=== PATIENT | female | born 1940 | race Caucasian/White ===

== ENCOUNTER → 2016-10-19 | Outpatient (CLI) | payer OTHER ==
[~2016-10-19] MED LIST: LISI10TA PO; ONDA4TAB46 PO; PRED-301 PO
== END | disposition home or self-care (01) ==
LOC: C.LABSPEC 17:30
PROVIDERS: ATTEND Family Medicine
DX: K13.79 Other lesions of oral mucosa (principal)

== ENCOUNTER → 2016-10-19 | Outpatient (CLI) | payer OTHER ==
[2016-10-19 15:50] LABS: HEMATOCRIT 40.7 % (37-47); MEAN CELL VOLUME 92.5 fL (80-100); MEAN CORPUSCULAR HEMOGLOBIN 30.5 pg (25-34); MEAN CORPUSCULAR HGB CONC 32.9 g/dl (32-36); PLATELET COUNT 218 K/uL (130-400); WHITE BLOOD COUNT 6.04 K/uL (4.8-10.8)
[2016-10-19 16:08] LABS: FERRITIN 175.1 ng/ml (8.0-388.0)
--- NOTE | 2016-10-23 11:25 | CODING QUERY MEDICAL NECESSITY ---
SUPPORTING DIAGNOSIS NEEDED A supporting diagnosis is required for the test/procedure performed on this patient in order for us to be reimbursed by the patient's insurance. Please provide a supporting diagnosis for the following test/procedure listed below next to the test name along with your signature. *If there is no additional diagnosis for this patient that would support the following test/procedure please document that below next to the test/procedure. Test(s)/Procedure(s) that require a supporting diagnosis: DOS 10/19 * Vitamin B12 DIAGNOSIS: * Iron DIAGNOSIS: Provider Signature: Date: Thank you Martha Collins Health Information Management Once completed, please kindly fax back to [phone] For questions please call [phone]
== END | disposition home or self-care (01) ==
LOC: C.LAB1850 14:35
PROVIDERS: ATTEND Family Medicine
DX: K13.79 Other lesions of oral mucosa (principal)

== ENCOUNTER → 2017-04-06 | Outpatient (CLI) | payer OTHER ==
[~2017-04-06] MED LIST changes: -ONDA4TAB46 PO
--- NOTE | 2017-04-06 11:52 | DIAGNOSTIC IMAGING REPORT ---
LUMBAR SPINE W/O CONTRAST CLINICAL HISTORY: 77 years-old Female presenting with LOW BACK PAIN W/INTRACTIBLE R LEG PAIN, history of surgery, back pain radiating down the right hip and leg. TECHNIQUE: Multisequence, multiplanar MR imaging of the lumbar spine was performed without the use of intravenous contrast. IV contrast: None. COMPARISON: Correlation made to CT of the abdomen and pelvis from 04/21/2016. FINDINGS: Localizer images: Unremarkable. 13 mm of grade 2 anterolisthesis of L5 on S1 with bilateral pars defects of L5 noted. Otherwise anatomic alignment maintained. Vertebral bodies demonstrate normal height and bone marrow signal intensity with the exception of fatty endplate changes at L2-3 (Modic type II). Multilevel degenerative changes detailed below: L1-2: Normal disc bulge without significant neural foraminal or spinal canal stenosis. L2-3: Loss of intervertebral disc height with mild disc bulge. In combination with right greater than left facet hypertrophy, moderate bilateral neural foraminal narrowing results. Suggestion of hemilaminectomy on the left at this level. No significant spinal canal stenosis. L3-4: Mild disc bulge, ligamentum flavum hypertrophy, and facet arthropathy result in moderate right neural foraminal narrowing. No significant spinal canal stenosis. L4-5: Moderate disc bulge, ligamentum flavum hypertrophy, and facet arthropathy result in mild bilateral neural foraminal narrowing. No significant spinal canal stenosis. L5-S1: Anterolisthesis of L5 on S1 with facet arthropathy and ligamentum flavum hypertrophy result in severe right and moderate left neural foraminal narrowing likely with associated mass effect on the exiting L5 nerve roots. Spinal cord ends in good position at the superior endplate of L1. Cauda equina normal in morphology. No gross evidence of epidural collection. No paraspinal edema. Remaining soft tissues remarkable for an extrarenal pelvis on the right. IMPRESSION: 1. Grade 2 anterolisthesis of L5 on S1 secondary to bilateral pars defects of L5. 2. Multilevel degenerative changes with varying degrees of neural foraminal narrowing most severe at L5-S1 with additional levels detailed above. Suspected mass effect on the exiting L5 nerve roots, right greater than left. 3. No significant spinal canal stenosis. 4. Suspected postsurgical changes of hemilaminectomy on the left at L2-3. Electronically signed by: Sin Cruz M.D. 04/06/2017 11:50 AM Dictated Date/Time: 04/06/2017 11:41 AM
== END | disposition home or self-care (01) ==
LOC: C.MRI 10:45
PROVIDERS: ATTEND Neurological Surgery
DX: M54.5 Low back pain (principal); M53.87 Other specified dorsopathies, lumbosacral region

== ENCOUNTER → 2017-07-23 | Outpatient (CLI) | payer OTHER ==
[~2017-07-23] MED LIST changes: +ASPCH81X PO; +FAMO20TA9 PO; +ONDA4TAB46 PO; +PRD/1 PO; +VNTHFA/IN INH
--- NOTE | 2017-07-23 12:51 | MAMMOGRAPHY REPORT ---
BILATERAL DIGITAL SCREENING MAMMOGRAM WITH CAD: 07/23/2017 CLINICAL HISTORY: Routine screening. Patient has no complaints. TECHNIQUE: Current study was also evaluated with a Computer Aided Detection (CAD) system. Bilateral CC and MLO views were obtained. COMPARISON: Comparison is made to exams dated: 03/21/2015 mammogram, 12/26/2013 mammogram, 12/09/2012 ma mmogram, 01/01/2011 mammogram - [facility], 03/12/2009, and 12/22/2005 mammogram - [facility]. BREAST COMPOSITION: There are scattered areas of fibroglandular density in both breasts. FINDINGS: No suspicious masses, calcifications, or areas of architectural distortion are noted in ei ther breast. There has been no significant interval change compared to prior exams. IMPRESSION: ACR BI-RADS CATEGORY 1: NEGATIVE There is no mammographic evidence of malignancy. A 1 year screening mammogram is recommended. The pa tient will receive written notification of the results. Approximately 10% of breast cancers are not detected with mammography. A negative mammographic report should not delay biopsy if a clinically suggestive mass is present. Iris Paredes M.D. /:07/23/2017 12:13:38 Rail Car Operator: Julia CUEVAS(Abner)(M), [facility] letter sent: Normal 1/2 BI-RADS Code: ACR BI-RADS Category 1: Negative
== END | disposition home or self-care (01) ==
LOC: C.MAMM 10:35
PROVIDERS: ATTEND Family Medicine
DX: Z12.31 Encounter for screening mammogram for malignant neoplasm of breast (principal)

== ENCOUNTER 2017-11-19 10:58 | Emergency (ER) | payer OTHER ==
[~2017-11-19] VITALS: Ht 157.5 cm; Wt 62.0 kg
[~2017-11-19 10:58] MED LIST changes: -ASPCH81X PO; -FAMO20TA9 PO; -ONDA4TAB46 PO; -PRD/1 PO; -VNTHFA/IN INH
[2017-11-19 11:04] VITALS: Ht 157.5 cm; Wt 62.0 kg
[2017-11-19] MEDS ORDERED: ONDA4TAB46 PO (11:23)
[2017-11-19] MEDS ORDERED: VNTHFA/IN INH (11:23)
[2017-11-19] MEDS ORDERED: ASPCH81X PO (11:23)
[2017-11-19] MEDS ORDERED: PRD/1 PO (11:23)
[2017-11-19] MEDS ORDERED: SODIUM CHLORIDE 0.9% 500ML 500 ML IV STA (11:27)
[2017-11-19] MEDS ORDERED: ONDANSETRON INJ 2 MG/ML 2 ML VIAL IV STA (11:27)
[2017-11-19] MEDS ORDERED: FAMOTIDINE 20 MG TAB PO ONE (11:30)
[2017-11-19 11:38] VITALS: O2SAT 90
[2017-11-19 12:08] LABS: BASO % 0.2 %; BASO ABS # 0.01 K/uL (0-0.2); EOS % 0.3 %; EOS ABS # 0.02 K/uL (0-0.5); HEMATOCRIT 45.5 % (37-47); HEMOGLOBIN 15.1 g/dL (12.0-16.0); LYMPH % 17.4 %; LYMPH ABS # 1.06 K/uL (1.2-3.4); MEAN CELL VOLUME 90.5 fL (80-100); MEAN CORPUSCULAR HGB CONC 33.2 g/dl (32-36); MEAN PLATELET VOLUME 9.4 fL (7.4-10.4); MONO % 6.2 %; MONO ABS # 0.38 K/uL (0.11-0.59); NEUT % 75.9 %; NEUT ABS # 4.63 K/uL (1.4-6.5); PLATELET COUNT 222 K/uL (130-400); RED CELL DISTRIBUTION WIDTH SD 42.8 fL (36.4-46.3)
--- NOTE | 2017-11-19 12:13 | DIAGNOSTIC IMAGING REPORT ---
CHEST ONE VIEW PORTABLE HISTORY: 77 years-old Female CHEST PAIN acute atypical chest pain COMPARISON: Chest radiograph 03/17/2012, CT abdomen and pelvis 04/21/2016 TECHNIQUE: Portable AP view of the chest FINDINGS: Cardiac silhouette is enlarged. There is no pneumothorax, pleural effusion, focal airspace consolidation or overt pulmonary edema. Linear subsegmental left basilar opacities suggest atelectasis or scarring. Degenerative changes are seen within the shoulders. IMPRESSION: Cardiomegaly without acute process. The above report was generated using voice recognition software. It may contain grammatical, syntax or spelling errors. Electronically signed by: Abdirahman Cardenas M.D. 11/19/2017 12:12 PM Dictated Date/Time: 11/19/2017 12:10 PM
[2017-11-19 12:22] LABS: ALBUMIN 4.2 gm/dl (3.4-5.0); ALT/SGPT 24 U/L (12-78); AST/SGOT 19 U/L (15-37); BLOOD UREA NITROGEN 18 mg/dl (7-18); CALCIUM 8.9 mg/dl (8.5-10.1); CARBON DIOXIDE 31 mmol/L (21-32); CREATININE 0.86 mg/dl (0.60-1.20); GLUCOSE 106 mg/dl (70-99); LIPASE 110 U/L (73-393); SODIUM 138 mmol/L (136-145)
[2017-11-19 12:27] LABS: ALKALINE PHOSPHATASE 70 U/L (45-117); TOTAL PROTEIN 8.3 gm/dl (6.4-8.2)
[2017-11-19] MEDS ORDERED: SODIUM CHLORIDE 0.9% 1000ML 1,000 ML IV STA ×2 (12:49→14:13)
[2017-11-19] MEDS ORDERED: GI COCKTAIL PO STA (13:05)
[2017-11-19] MEDS ORDERED: ACETAMINOPHEN 500 MG TAB PO STA (13:18)
[2017-11-19] MEDS ORDERED: LIDOCAINE HCL 2% VISC SOLN 20 ML UDC ONE (13:19)
[2017-11-19] MEDS ORDERED: ALUMINUM/MAGNESIUM SUSP 30 ML UDC ONE (13:20)
[2017-11-19] MEDS ORDERED: METOCLOPRAMIDE HCL INJ 5 MG/ML 2 ML VIAL IV STA (14:13)
[2017-11-19] MEDS ORDERED: DiphenhydrAMINE HCL 50 MG/ML VIAL IV STA (14:13)
[2017-11-19 14:16] LABS: INFLUENZA A PCR Neg for Influ A (NEG); INFLUENZA B PCR Neg for Influ B (NEG)
[2017-11-19] MEDS ORDERED: LISINOPRIL 20 MG TAB PO STA (14:39)
[2017-11-19] MEDS ORDERED: LISINOPRIL 5 MG TAB ONE (14:45)
[2017-11-19] MEDS ORDERED: FAMO20TA9 PO (18:08)
--- NOTE | 2017-11-19 18:11 | EMERGENCY ROOM VISIT NOTE ---
History Report prepared by Zora: León Pichardo Under the Supervision of: Dr. Reji Lofton M.D. First contact with patient: 11:21 Chief Complaint: CHEST PAIN Stated Complaint: HEAVINESS IN CHEST, LOW BACK PAIN, REFLUX, NAUSEA Nursing Triage Summary: chest pressure started yesterday. b/p has been all over place per pt. sent by [facility]. History of Present Illness The patient is a 77 year old female who presents to the Emergency Room with complaints of constant chest discomfort that began yesterday. The patient describes her discomfort as a "heaviness." She notes that yesterday she was experiencing a lot of chest pain related to her reflux, but felt normal two days ago. Mentioned that she is nauseous today as well, which is worsened by changes in position. The patient's daughter at bedside notes that the patient has been experiencing spikes in her blood pressure, and has felt a little off balance. She has been experiencing hot flashes, but has not had any recorded fevers. She has not history of myocardial infarction. She is currently on Prednisone for Fibro and Polymyalgias. Source of History: patient Onset: Yesterday Position: chest Quality: other (Heaviness) Timing: constant Modifying Factors (Worsening): other (Changes in position worsens nausea) Associated Symptoms: + fevers (Hot flashes, no recorded temperatures), + nausea Review of Systems See HPI for pertinent positives and negatives. A total of ten systems were reviewed and were otherwise negative. Past Medical & Surgical Medical Problems: (1) Spinal stenosis Family History Patient reports no known family medical history. Social History Smoking Status: Never Smoker Marital Status: Housing Status: lives with family Occupation Status: retired Current/Historical Medications Scheduled Aspirin (Aspirin Chewable), 81 MG PO DAILY Lisinopril (Prinivil), 10 MG PO DAILY Prednisone (Prednisone), 1 MG PO DAILY Scheduled PRN Albuterol Hfa (Ventolin Hfa), 2 PUFFS INH Q4H PRN for SOB/Wheezing Famotidine (Pepcid), 20 MG PO BID PRN for GI Upset Ondansetron Hcl (Zofran), 4 MG PO Q6H PRN for Nausea Allergies Coded Allergies: Codeine (Verified Adverse Reaction, Unknown, "Sick", 04/28/16) Physical Exam Vital Signs Date Time Temp Pulse Resp B/P (MAP) Pulse Ox O2 Delivery O2 Flow Rate FiO2 11/19/17 18:41 36.5 71 16 132/77 93 11/19/17 18:40 71 16 132/77 93 11/19/17 17:41 73 17 93 11/19/17 17:31 165/91 11/19/17 17:11 71 19 93 11/19/17 17:01 128/73 11/19/17 16:41 70 18 92 11/19/17 16:36 69 18 94 11/19/17 16:31 139/92 11/19/17 16:06 73 20 94 11/19/17 16:01 73 21 150/110 94 Room Air 11/19/17 15:46 72 14 92 11/19/17 15:31 161/108 11/19/17 15:16 75 11/19/17 15:16 75 25 91 11/19/17 15:11 74 14 93 Room Air 11/19/17 15:10 179/82 11/19/17 15:09 74 16 179/82 95 11/19/17 14:11 66 15 93 Room Air 11/19/17 14:06 66 17 93 Room Air 11/19/17 14:01 192/86 11/19/17 13:36 62 19 95 Room Air 11/19/17 13:31 191/91 11/19/17 13:06 59 18 92 Room Air 11/19/17 13:01 187/98 11/19/17 12:36 59 15 93 Room Air 11/19/17 12:31 187/93 11/19/17 12:06 63 14 97 Room Air 11/19/17 12:01 196/106 11/19/17 11:58 64 16 94 Room Air 11/19/17 11:58 54 11/19/17 11:54 193/91 11/19/17 11:38 90 Room Air 11/19/17 11:28 59 19 98 Room Air 11/19/17 11:22 Room Air 11/19/17 11:19 203/94 11/19/17 11:04 36.5 54 16 190/96 96 Room Air Physical Exam GENERAL: Awake, alert, fatigued and uncomfortable-appearing, in no distress HENT: Normocephalic, atraumatic. Mucous Membranes are dry. EYES: Normal conjunctiva. Sclera non-icteric. NECK: Supple. No nuchal rigidity. FROM. No JVD. RESPIRATORY: Clear to auscultation. CARDIAC: Regular rate, normal rhythm. Extremities warm and well perfused. Pulses equal. ABDOMEN: Soft, non-distended. There is mild epigastric tenderness, no discrete tenderness to palpation. No rebound or guarding. No masses. RECTAL: Deferred. MUSCULOSKELETAL: Chest examination reveals no tenderness. The back is symmetrical on inspection without obvious abnormality. There is no CVA tenderness to palpation. No joint edema. LOWER EXTREMITIES: Calves are equal size bilaterally and non-tender. No edema. No discoloration. NEURO: Normal sensorium. No sensory or motor deficits noted. SKIN: No rash or jaundice noted. Medical Decision & Procedures ER Provider Diagnostic Interpretation: Radiology results as stated below per my review and radiologist interpretation: CHEST ONE VIEW PORTABLE HISTORY: 77 years-old Female CHEST PAIN acute atypical chest pain COMPARISON: Chest radiograph 03/17/2012, CT abdomen and pelvis 04/21/2016 TECHNIQUE: Portable AP view of the chest FINDINGS: Cardiac silhouette is enlarged. There is no pneumothorax, pleural effusion, focal airspace consolidation or overt pulmonary edema. Linear subsegmental left basilar opacities suggest atelectasis or scarring. Degenerative changes are seen within the shoulders. IMPRESSION: Cardiomegaly without acute process. The above report was generated using voice recognition software. It may contain grammatical, syntax or spelling errors. Electronically signed by: Abdirahman Cardenas M.D. 11/19/2017 12:12 PM Dictated Date/Time: 11/19/2017 12:10 PM Laboratory Results 11/19/17 11:50 Red Blood Count 5.03, Mean Corpuscular Volume 90.5, Mean Corpuscular Hemoglobin 30.0, Mean Corpuscular Hemoglobin Concent 33.2, Mean Platelet Volume 9.4, Neutrophils (%) (Auto) 75.9, Lymphocytes (%) (Auto) 17.4, Monocytes (%) (Auto) 6.2, Eosinophils (%) (Auto) 0.3, Basophils (%) (Auto) 0.2, Neutrophils # (Auto) 4.63, Lymphocytes # (Auto) 1.06, Monocytes # (Auto) 0.38, Eosinophils # (Auto) 0.02, Basophils # (Auto) 0.01 11/19/17 11:50 Test 11/19/17 11:50 11/19/17 11:57 11/19/17 14:26 White Blood Count 6.10 K/uL (4.8-10.8) Red Blood Count 5.03 M/uL (4.2-5.4) Hemoglobin 15.1 g/dL (12.0-16.0) Hematocrit 45.5 % (37-47) Mean Corpuscular Volume 90.5 fL (80-100) Mean Corpuscular Hemoglobin 30.0 pg (25-34) Mean Corpuscular Hemoglobin Concent 33.2 g/dl (32-36) Platelet Count 222 K/uL (130-400) Mean Platelet Volume 9.4 fL (7.4-10.4) Neutrophils (%) (Auto) 75.9 % Lymphocytes (%) (Auto) 17.4 % Monocytes (%) (Auto) 6.2 % Eosinophils (%) (Auto) 0.3 % Basophils (%) (Auto) 0.2 % Neutrophils # (Auto) 4.63 K/uL (1.4-6.5) Lymphocytes # (Auto) 1.06 K/uL (1.2-3.4) Monocytes # (Auto) 0.38 K/uL (0.11-0.59) Eosinophils # (Auto) 0.02 K/uL (0-0.5) Basophils # (Auto) 0.01 K/uL (0-0.2) RDW Standard Deviation 42.8 fL (36.4-46.3) RDW Coefficient of Variation 13.0 % (11.5-14.5) Immature Granulocyte % (Auto) 0.0 % Immature Granulocyte # (Auto) 0.00 K/uL (0.00-0.02) Erythrocyte Sedimentation Rate 21 mm/hr (0-21) Urine Color YELLOW Urine Appearance CLEAR (CLEAR) Urine pH 6.5 (4.5-7.5) Urine Specific [place] 1.022 (1.000-1.030) Urine Protein NEG (NEG) Urine Glucose (UA) NEG (NEG) Urine Ketones 2+ (NEG) Urine Occult Blood 2+ (NEG) Urine Nitrite NEG (NEG) Urine Bilirubin NEG (NEG) Urine Urobilinogen NEG (NEG) Urine Leukocyte Esterase TRACE (NEG) Urine WBC (Auto) 1-5 /hpf (0-5) Urine RBC (Auto) 10-30 /hpf (0-4) Urine Hyaline Casts (Auto) 1-5 /lpf (0-5) Urine Epithelial Cells (Auto) >30 /lpf (0-5) Urine Bacteria (Auto) NEG (NEG) Anion Gap 3.0 mmol/L (3-11) Est Creatinine Clear Calc Drug Dose 46.7 ml/min Estimated GFR () 75.0 Estimated GFR (Non- 64.7 BUN/Creatinine Ratio 20.8 (10-20) Calcium Level 8.9 mg/dl (8.5-10.1) Total Bilirubin 0.6 mg/dl (0.2-1) Direct Bilirubin 0.1 mg/dl (0-0.2) Aspartate Amino Transf (AST/SGOT) 19 U/L (15-37) Alanine Aminotransferase (ALT/SGPT) 24 U/L (12-78) Alkaline Phosphatase 70 U/L (45-117) C-Reactive Protein < 0.29 mg/dl (0-0.29) Pro-B-Type Natriuretic Peptide 86 pg/ml (0-1800) Total Protein 8.3 gm/dl (6.4-8.2) Albumin 4.2 gm/dl (3.4-5.0) Lipase 110 U/L (73-393) Influenza Type A (RT-PCR) Neg for Influ A (NEG) Influenza Type B (RT-PCR) Neg for Influ B (NEG) Troponin I < 0.015 ng/ml (0-0.045) Laboratory results reviewed by me Medications Administered Medications (Trade) Dose Ordered Sig/Elvin Route Start Time Stop Time Status Last Admin Dose Admin Sodium Chloride 500 ml @ 999 mls/hr Q31M STAT IV 11/19/17 11:27 11/19/17 11:57 DC 11/19/17 11:57 999 MLS/HR Famotidine (Pepcid Tab) 20 mg NOW ONCE PO 11/19/17 11:30 11/19/17 11:35 DC 11/19/17 11:57 20 MG Ondansetron HCl (Zofran Inj) 4 mg NOW STAT IV 11/19/17 11:27 11/19/17 11:35 DC 11/19/17 11:57 4 MG Sodium Chloride 1,000 ml @ 999 mls/hr Q1H1M STAT IV 11/19/17 12:49 11/19/17 13:49 DC 11/19/17 13:15 999 MLS/HR Acetaminophen (Tylenol Tab) 1,000 mg NOW STAT PO 11/19/17 13:18 11/19/17 13:20 DC 11/19/17 13:23 1,000 MG Lidocaine HCl (Viscous Lidocaine 2% Soln) 20 ml STK-MED ONCE .ROUTE 11/19/17 13:19 11/19/17 13:20 DC 11/19/17 13:23 20 ML Al Hydroxide/Mg Hydroxide (Maalox Susp) 30 ml STK-MED ONCE .ROUTE 11/19/17 13:20 11/19/17 13:21 DC 11/19/17 13:23 30 ML Sodium Chloride 1,000 ml @ 999 mls/hr Q1H1M STAT IV 11/19/17 14:13 11/19/17 15:13 DC 11/19/17 14:50 999 MLS/HR Metoclopramide HCl (Reglan Inj) 10 mg NOW STAT IV 11/19/17 14:13 11/19/17 14:14 DC 11/19/17 14:50 10 MG Diphenhydramine HCl (Benadryl Inj) 25 mg NOW STAT IV 11/19/17 14:13 11/19/17 14:14 DC 11/19/17 14:50 25 MG Lisinopril (Zestril Tab) 10 mg STK-MED ONCE .ROUTE 11/19/17 14:45 11/19/17 14:46 DC 11/19/17 14:48 10 MG ECG Per My Interpretation Rate (beats per minute): 50 Rhythm: sinus bradycardia Findings: other (Normal Meta, No ASHLEY/STD) ED Course 1126: The patient was evaluated in room C10. A complete history and physical exam was performed. Medical Decision I reviewed the patient's past medical history, medications, and the nursing notes as described above. Differential diagnosis: Etiologies such as cardiac ischemia, aortic dissection, pulmonary embolism, pneumonia, pneumothorax, musculoskeletal, infections, pericarditis, myocarditis , esophageal rupture, gastrointestinal, as well as others were entertained. The patient is a 77-year-old woman with a past medical history of hypertension who presents emergency department with generalized weakness over the past week with associated headache and developing of persistent nausea and vomiting since yesterday in setting of having elevated blood pressures over the past week per hpi. On arrival the patient is fatigued and uncomfortable but no acute distress , afebrile, hypertensive 200s/90s vital signs otherwise stable. On exam the patient does appear clinically dry. Labs unremarkable including WBC within normal limits. BUN/CR > 20 suggestive of mild dehydration. Labs otherwise unremarkable including ESR and CRP in the setting of the patient's PMR. As well as initial troponin and delta 2 hour troponin in the setting of greater than 6 hours of symptoms. EKG unremarkable. Thus, cardiac etiology unlikely. She was given IV fluids, Zofran, Pepcid, GI cocktail, Reglan, diphenhydramine with significant improvement in her symptoms. Moreover, the patient was given her home dose of lisinopril which he did not take today. Subsequently the patient's blood pressures improved to the 130s over 90s. A bedside ultrasound of the patient's gallbladder was performed and did show question of a gallstone within the gallbladder neck however, formal ultrasound negative for gallstone and otherwise unremarkable. Of note, the patient reports history of chronic headaches that occur particularly in the morning which her PCP is aware of. I did offer the patient the option for a CAT scan of her brain however she prefers to defer this at this time and follow-up with her doctor given that these headaches are not new. Findings and plan for follow-up reviewed with patient. Patient agreeable and d/c'd per discharge instructions. Impression Primary Impression: Chest pain Additional Impressions: Gastritis Dehydration Scribe Attestation The scribe's documentation has been prepared under my direction and personally reviewed by me in its entirety. I confirm that the note above accurately reflects all work, treatment, procedures, and medical decision making performed by me. Departure Information Dispostion Home / Self-Care Prescriptions Famotidine (PEPCID) 20 Mg Tab 20 MG PO BID Y for GI Upset for 14 Days, #28 TAB Prov: Reji Lofton M.D. 11/19/17 Referrals No Doctor, Assigned (PCP) Patient Instructions ED Chest Pain Atypical Unkn Cause, ED Dehydration, ED Gastritis, ED Headache Migraine, ED Headache Tension, High Blood Pressure, My [facility] Additional Instructions Please follow up with your primary care physician on Wednesday for re-evaluation and to discuss control of your blood pressure. Your symptoms are most likely due to a gastritis with associated dehydration. Otherwise, your exam, EKG, chest xray, lab results, and ultrasound did not show signs of an emergent condition at this time. Acetaminophen for pain and fevers as needed. Zofran as needed for nausea. Pepcid as needed for GI upset/acid reduction. Drink plenty of fluids to ensure hydration. Return to the emergency department for worsening symptoms as described in the accompanying instructions. Problem Qualifiers
--- NOTE | 2017-11-19 18:21 | DIAGNOSTIC IMAGING REPORT ---
ULTRASOUND RIGHT UPPER QUADRANT ABDOMEN CLINICAL HISTORY: Upper abdominal pain. COMPARISON STUDY: Abdominal CT dated 04/21/2016. TECHNIQUE: Real-time, grayscale, and color flow sonography of the right upper quadrant of the abdomen was performed. Images are reviewed in the transverse and longitudinal planes. FINDINGS: Liver: The liver is normal in size and echotexture. There is no intrahepatic biliary ductal dilatation. The main portal vein is patent. Gallbladder: The gallbladder is normal in appearance. No gallstones are identified. There is no gallbladder wall thickening or pericholecystic fluid. A sonographic Kilgore's sign is reportedly absent. The common bile duct measures up to 0.6 cm in diameter. Pancreas: Visualized portions of the pancreatic head and body are normal in appearance. The splenic vein is patent. Right kidney: Survey images of the right kidney demonstrate normal size and echotexture. There is no hydronephrosis. Ascites: None. IMPRESSION: Unremarkable sonographic assessment of the right upper quadrant. No gallstones are identified. Electronically signed by: Nelson Hidalgo M.D. 11/19/2017 6:20 PM Dictated Date/Time: 11/19/2017 6:16 PM
[2017-11-19 18:41] VITALS: BP 132/77; PULSE 71; TEMP 36.5; O2SAT 93
== END 2017-11-19 18:42 | disposition home or self-care (01) ==
LOC: C.EDB 11:01 → C.EDC 18:42
DX: R07.9 Chest pain, unspecified (principal); K29.70 Gastritis, unspecified, without bleeding; E86.0 Dehydration; Z79.82 Long term (current) use of aspirin; Z79.899 Other long term (current) drug therapy; Z79.52 Long term (current) use of systemic steroids

== ENCOUNTER → 2018-03-14 | Outpatient (CLI) | payer OTHER ==
[~2018-03-14] MED LIST changes: +ASPCH81X PO; +ONDA4TAB46 PO; +PRD/1 PO; -PRED-301 PO; +VNTHFA/IN INH
--- NOTE | 2018-03-14 09:38 | DIAGNOSTIC IMAGING REPORT ---
LEFT HIP 2 VIEWS CLINICAL HISTORY: Left hip pain. FINDINGS: AP and frog-leg views of the left hip are correlated with abdominal radiograph dated 03/26/2016. The skeletal structures are osteopenic. No fracture is seen. Minimal arthritic change is identified in the left hip. Tiny enthesophytes arise in the greater trochanter of the left femur. Sclerotic change is noted in the left sacroiliac joint and the symphysis pubis. The overlying soft tissues are within normal limits. IMPRESSION: No acute bony abnormality is identified. Electronically signed by: Nelson Hidalgo M.D. 03/14/2018 9:36 AM Dictated Date/Time: 03/14/2018 9:35 AM
== END | disposition home or self-care (01) ==
LOC: C.RAD 09:11
PROVIDERS: ATTEND Neuromusculoskeletal Medicine & OMM
DX: M25.552 Pain in left hip (principal)

== ENCOUNTER 2023-07-24 10:22 | Inpatient (IN) ==
--- OUTSIDE RECORDS SUMMARY | 2023-07-24 10:29 | External Medical Summary | Summary of Care ---
Author Name Unknown Organization [facility] Address [address] [address] Phone [phone] Care Team Providers Care [employer] Name Role Phone KariCynthiakodak Linton DO Primary Care Provider [phone] Reason for Visit * Reason Comments eRx-Medication Refill Encounter Details Date Type Department Care Team (Late st Contact Info) Description 06/21/2023 Refill Family Practice [facility] [address] [place] [address] Sin Grady MD [address] [place] [address] Allergies Active Allergy Reactions Criticality Noted Date Comments Morphine And Related Nausea/vomiting 07/10/1999 codeine documented as of this encounter (statuses as of 06/21/2023) Medications Medication Sig Dispensed Refills Start Date End Date Status predniSONE 1 MG Oral Tablet (Deltasone)Indicati ons:Polymyalgia rheumatica (HCC) Take 2 tablets by mouth once daily 180 Tablet 3 2 Active Additional Information Patient taking differently: 1 mg Oral Daily(AM), Reported on 12/30/2022 Naproxen Sodium 220 MG Oral Tablet (Aleve) Take 1 Tablet by mouth 2 times a day as needed for Pain. 0 3 Active Levothyroxine Sodium 25 MCG Oral Tablet (Levoxyl)Indication s:Acquired hypothyroidism Take 1 Tablet by mouth in the morning. (at least 30 min prior to breakfast or other meds). 90 Tablet 1 3 Active hydroCHLOROthiazide 25 MG Oral Tablet (Hydrodiuril) Take 1 tablet by mouth once daily 90 Tablet 3 3 Active Losartan Potassium 25 MG Oral Tablet (Cozaar) Take 1 tablet by mouth once daily 90 Tablet 3 3 Active Losartan Potassium 25 MG Oral Tablet (Cozaar) Take 1 tablet by mouth once daily 90 Tablet 1 3 06/21/20 23 Discontinued hydroCHLOROthiazide 25 MG Oral Tablet (Hydrodiuril) Take 1 tablet by mouth once daily 90 Tablet 1 3 06/21/20 23 Discontinued documented as of this encounter (statuses as of 06/21/2023) Active Problems Problem Noted Date Diagnosed Date Onychomycosis 12/19/2021 Trigger finger of left thumb 12/19/2021 Polymyalgia rheumatica 08/04/2020 Herpes zoster without complication 04/26/2020 Abn findings on dx [facility] 02/12/2020 Overview: 02/11 CT-pancreas, sher 2y Well adult exam 02/12/2020 Overview: Need repeat colon? 05/14 lumbar MRI done. 02/11 CT-pancreas, sher 2y, Refer uro for microhematuria/bladder CT abnormal 2013 echo WNL 2015 DEXA [facility] WNL 12/03 Colon [facility] Dr Abdi--Quiescent IBD, UC? 01/03 stress test [facility] WNL Reflux esophagitis Essential hypertension with goal blood pressure less than 140/90 Myalgia and myositis Lumbar spinal stenosis Cyst of kidney, acquired Overview: Right Renal Cyst S/P lumbar fusion documented as of this encounter (statuses as of 06/21/2023) Resolved Problems Problem Noted Date Diagnosed Date Resolved Date Left groin pain 12/19/2021 11/10/2022 Microhematuria 02/12/2020 11/10/2022 Overview: 02/[address] Refer Uro. JOINT PAIN-SHLDER 12/24/1998 01/09/2020 URIN TRACT INFECTION NOS documented as of this encounter (statuses as of 06/21/2023) Immunizations Name Administration Dates Next Due COVID-19 mRNA, LNP-s, No Pre serve, 2-Dose Series ([employer]) 11/27/2021,04/22/2021,10/08/2020,09/17 COVID-19, MRNA-LNP, 23-24, P F, 30 MCG/0.3 mL, 12 YRS AND ABOVE, IM ([employer]) 05/13/2023 Covid-19, Mrna, Lnp-s, Pf, B ivalent, 30 Mcg, IM, 12 yrs and above ([employer]) 12/02/2022,04/07/2022 Pneumococcal Conjugate Vacc, 13 Valent (Prevnar) 03/27/2020,03/27/2015 Pneumococcal Polysaccharide PPV23 (Pneumovax) 04/02/2016 Seasonal Influenza, Quadriva lent Hd (Fluzone Hd) 04/14/2023,03/31/2022,04/07/2021 Seasonal Influenza, Quadriva lent Hd, 65+ Yrs 03/27/2020 Seasonal Influenza, Trivalen t, High Dose, No Preserve, IM 03/27/2020 TDAP (age 10 and older)(Boostrix) 08/02/2020 Zoster Vaccine Recombinant (Shingrix) 12/19/2020 ,08/02/2020 documented as of this encounter Social History Tobacco Use Types Packs/Day Years Used Date Smoking Tobacco: Former Cigarettes 0.5 20 Q uit: 07/26/1988 Passive Smoke Exposure: Past Smokeless Tobacco: Never Alcohol Use Standard Drinks/Week Comments Yes 1 (1 standard drink = 0.6 oz pur e alcohol) 1-3 per week PHQ-2 Answer Date Recorded PHQ Adult Total Score 2 06/07/2023 Hunger Vital Sign Answer Date Recorded Within the past 12 months, y ou worried that your food would run out before you got the money to buy more. Never true 06/07/20 23 Within the past 12 months, t he food you bought just didn't last and you didn't have money to get more. Never true 06/07/2023 Sex and Gender Information Value Date Recorded Sex Assigned at Female 01/14/2022 11:23 AM EDT Gender Identity Female 01/14/2022 11:23 AM EDT Sexual Orientation Straight 01/14/2022 11 :23 AM EDT Job Start Date Occupation Industry Not on file Not on file Not on file documented as of this encounter Miscellaneous Notes * Telephone Encounter - Judith Moreno [facility] - 06/21/2023 6:54 PM EST Signed Prescriptions: Disp Refills hydroCHLOROthiazide 25 MG Oral Tablet (Hyd*90 Tab*3 Sig: Take 1 tablet by mouth once dailyAuthorizing Provider: JULIA RUVALCABA User: JUDITH MORENO Losartan Potassium 25 MG Oral Tablet (Coza*90 Tab*3 Sig: Take 1 tablet by mouth once dailyAutho rizing Provider: JULIA RUVALCABA User: JUDITH MORENO documented in this encounter Plan of Treatment Upcoming Encounters Date Type Department Care Team (Late st Contact Info) Description 06/25/2023 10:00 AM EST Nurse Only Ancillary [facility] [address] [place] [address] College, Nurse Annual Wellness Visit [address] [address] 11/18/2023 11:00 AM EDT Office Visit Family Practice [facility] [address] [place] [address] Julia Ruvalcaba DO [address] [place] [address] 03/16/2024 10:45 AM EDT Office Visit Dermatology [facility] [place] [address] [place] [address] Brandt Stevens MD [address] [place] [address] Health Maintenance Due Date Last Done Comments GFR 12/31/2023 12/30/2022, 11/23, 03/02/2022, Additional history exists TSH 02/26/2024 02/25/2023, 01/2023, 12/02/2022, Additional history exists Depression Screening 06/07/2024 06/07/2023 Albumin/Creatinine Ratio 12/02/2025 12/02/2022, 12/24 DXA Scan 09/18/2027 09/18/2020, 03/14/2015 DTaP,Tdap,and Td Vaccines (2 - Td or Tdap) 08/02/2030 08/02/2020 Pneumococcal Vaccine: 65+ Years Completed 03/27/2020, 04/02/2016, 03/27/2015 Zoster Vaccines Completed 12/19/2020, 08/02/2020 Influenza Vaccine (FLU shot) Completed , 03/31/2022, 04/07/2021, Additional history exists COVID-19 Vaccine Completed 05/13/2023, 04/2023, 04/07/2022, Additional history exists GARDASIL-HPV IMMUNIZATION SERIES Aged Out No longer eligible based on patient's age to complete this topic Hepatitis B Aged Out No longer eligi ble based on patient's age to complete this topic MENINGOCOCCAL (MENACTRA/MENVEO) Aged Out No longer eligible based on patient's age to complete this topic documented as of this encounter Medical Devices Not on filedocumented as of this encounter Care Teams [employer] Relationship Specialty Start Date End Date Julia Ruvalcaba DO [address] [place] [address] PCP - General Family Medicine 12/30/22 documented as of this encounter
--- OUTSIDE RECORDS SUMMARY | 2023-07-24 10:29 | External Medical Summary | Summary of Care ---
Author Name Unknown Organization [facility] Address [address] [place] [address] Phone [phone] Care Team Providers Care Hairspring Vibrator Name Role Phone Julia Pierce DO Primary Care Provider Reason for Visit * Reason Onset Date Comments Adult Annual Wellness Visit, Subsequent Visit Adult Annual Wellness Visit, Subsequent Visit Encounter Details Date Type Department Care Team (Late st Contact Info) Description 06/25/2023 10:00 AM EST Nurse Only Ancillary [address] [id number] College, Nurse Annual Wellness Visit [address] [id number] Adult Annual Wellness Visit, Subsequent Vi... Allergies Active Allergy Reactions Criticality Noted Date Comments Morphine And Related Nausea/vomiting 07/10/1999 codeine documented as of this encounter (statuses as of 06/25/2023) Medications Medication Sig Dispensed Refills Start Date End Date Status predniSONE 1 MG Oral Tablet (Deltasone)Indicati ons:Polymyalgia rheumatica (HCC) Take 2 tablets by mouth once daily 180 Tablet 3 11/27/2021 Active Additional Information Patient taking differently: 1 mg Oral Daily(AM), Reported on 12/30/2022 Levothyroxine Sodium 25 MCG Oral Tablet (Levoxyl)Indication s:Acquired hypothyroidism Take 1 Tablet by mouth in the morning. (at least 30 min prior to breakfast or other meds). 90 Tablet 1 03/05/2023 Active hydroCHLOROthiazide 25 MG Oral Tablet (Hydrodiuril) Take 1 tablet by mouth once daily 90 Tablet 3 06/21/2023 Active Losartan Potassium 25 MG Oral Tablet (Cozaar) Take 1 tablet by mouth once daily 90 Tablet 3 06/21/2023 Active Acetaminophen 500 MG Oral Tablet (Tylenol Extra Strength) Take 2 Tablets by mouth every 8 hours as needed for Pain, Mild. Takes 1-2 tabs as needed, not to exceed 3000 mg/day 0 Active Naproxen Sodium 220 MG Oral Tablet (Aleve) Take 1 Tablet by mouth 2 times a day as needed for Pain. 0 12/30/2022 3 Discontinu ed(Medicat ion List Clean Up) documented as of this encounter (statuses as of 06/25/2023) Active Problems Problem Noted Date Diagnosed Date Onychomycosis 12/19/2021 Trigger finger of left thumb 12/19/2021 Polymyalgia rheumatica 08/04/2020 Herpes zoster without complication 04/26/2020 Abn findings on dx imaging of abd regions, inc r etroperiton 02/12/2020 Overview: 02/11 CT-pancreas, sher 2y Well adult exam 02/12/2020 Overview: Need repeat colon? 05/14 lumbar MRI done. 02/11 CT-pancreas, sher 2y, Refer uro for microhematuria/bladder CT abnormal 2013 echo WNL 2015 DEXA [facility] WNL 12/03 Colon [facility] Dr Abdi--Quiescent IBD, UC? 01/03 stress test [facility] WNL Reflux esophagitis Essential hypertension with goal blood pressure less than 140/90 Myalgia and myositis Lumbar spinal stenosis Cyst of kidney, acquired Overview: Right Renal Cyst S/P lumbar fusion documented as of this encounter (statuses as of 06/25/2023) Resolved Problems Problem Noted Date Diagnosed Date Resolved Date Left groin pain 12/19/2021 11/10/2022 Microhematuria 02/12/2020 11/10/2022 Overview: 02/[address] Refer Uro. JOINT PAIN-SHLDER 12/24/1998 01/09/2020 URIN TRACT INFECTION NOS documented as of this encounter (statuses as of 06/25/2023) Immunizations Name Administration Dates Next Due COVID-19 mRNA, LNP-s, No Pre serve, 2-Dose Series ([employer]) 11/27/2021,04/22/2021,10/08/2020,09/17 COVID-19, MRNA-LNP, 23-24, P F, 30 MCG/0.3 mL, 12 YRS AND ABOVE, IM ([employer]-ComirnatLike.fm) 05/13/2023 Covid-19, Mrna, Lnp-s, Pf, B ivalent, 30 Mcg, IM, 12 yrs and above ([employer]) 12/02/2022,04/07/2022 Pneumococcal Conjugate Vacc, 13 Valent (Prevnar) [...] on file documented as of this encounter Last Filed Vital Signs Vital Sign Reading Time Taken Comments Blood Pressure 130/72 06/25/2023 10:24 AM EST Pulse 64 06/25/2023 10:24 AM EST Temperature 36.4 C (97.6 F) 06/25/2023 10:[address] Respiratory Rate - - Oxygen Saturation 95% 06/25/2023 10:24 AM EST Inhaled Oxygen Concentration - - Weight 63.6 kg (140 lb 4.8 oz) 06/25/2023 10:24 AM EST Height 148.6 cm (4' 10.5") 06/25/2023 10:[address] Body Mass Index 28.82 06/25/2023 10:24 AM EST documented in this encounter Patient Instructions * Patient Instructions* Melinda Estevez RN - 06/25/2023 10:55 AM EST Hi Ms. Clemens, As your primary care physician, I know that regular visits with my patients who have several chronic conditions can go a long way in helping you stay healthy. Many times, the clinic team and I are in touch with you and/or other care team members between office visits to adjust medications, discuss any changes in your health, and review our care plan to make sure it is still meeting your needs. I am dedicated to helping you take a more active role in your overall care. It is important that there are resources available to you, so I created a personalized plan of care with a Health Calendar for you, which is included on the next page of this letter. Below is a list that summarizes your electronic health record: Health Maintenance Due: There are no preventive care reminders to display for this patient. Current Medication List: (as of Visit date not found (in office), Visit date not found (telemedicine) ) Current Outpatient Medications Medication Sig Dispense Refill predniSONE 1 MG Oral Tablet (Deltasone) Take 2 tablets by mouth once daily (Patient taking differently: Take 1 Tablet by mouth in the morning.) 180 Tablet 3 Levothyroxine Sodium 25 MCG Oral Tablet (Levoxyl) Take 1 Tablet by mouth in the morning. (at least 30 min prior to breakfast or other meds). 90 Tablet 1 hydroCHLOROthiazide 25 MG Oral Tablet (Hydrodiuril) Take 1 tablet by mouth once daily 90 Tablet3 Losartan Potassium 25 MG Oral Tablet (Cozaar) Take 1 tablet by mouth once daily 90 Tablet 3 Acetaminophen 500 MG Oral Tablet (Tylenol Extra Strength) Take 2 Tablets by mouth every 8 hoursas needed for Pain, Mild. Takes 1-2 tabs as needed, not to exceed 3000 mg/day No current facility-administered medications for this visit. Current List of Allergies: (as of Visit date not found (in office), Visit date not found (telemedicine) ) Review of patient's allergies indicates: Allergen Reactions Morphine And Related Nausea/vomiting codeine Most Recent Lab Results: Results for orders placed or performed in visit on 03/08/23 SURGICAL PATHOLOGY Result Value Ref Range Final Diagnosis A. Skin, right frontal hairline, shave: Basal cell carcinoma (see comment) Comment: The portion of the tumor available for examination appears to be predominantly of the nodular subtype. Actinic keratosis and tumor of the follicular infundibulum are also present. Clinical History See Order Comments Order Comments A. Right frontal hairline - pink shiny papule with thin overlying crust/scale - r/o BCC Gross Description A. Skin. shave Received formalin with a container labeled with "Nicholas Clemens", "[id number]", "1940" and " rightfrontal hairline". Received is a 0.5 x 0.5 cm skin shave. The skin surface is white, scaly, hair-bearing. The underlying tissue is inked. The specimen is bisected and submitted in cassette A1. Gross By: KB Sign Out Location Pathologist sign out performed at [facility] ([facility] [address] [place] [id number]. Photographic images and diagrams represent garcia findings in this case; they are not intended to replace a complete review of the final diagnostic report. The following statement applies to Flow Cytometry, Histology, In situ Hybridization Assays and Molecular Genetics. This test was developed and performed at [facility] and its performance characteristics determined by [facility]. It has not been cleared or approved by the U.S. Food and Drug Administration. The FDA has determined that such clearance or approval is not necessary. This test is used for clinical purposes. It should not be regarded as investigationalor for research. Special stains, including histochemical stains, and studies using immunologic and IRMA methodology (where applicable) are performed with appropriate positive and negative control reactions. Sincerely, Julia Pierce, DO 06/25/2023 [employer] Calendar (as of Visit date not found (in office), Visit date not found (telemedicine) ) Care needs Care needs Last completed Due next Kidney Function Test 12/30/2022 12/31/2023 Yearly thyroid level check 02/25/2023 02/26/2024 Urine albumin/creatinine test 12/02/2022 12/02/2025 Bone Density 09/18/2020 09/18/2027 Diphtheria, tetanus & pertussis vaccines (2 - Td or Tdap) 08/02/2020 08/02/2030 As you look over the recommended services, be sure to check with your insurance company to determine what's covered. [employer] is a great tool that helps you review your medical record online, including test results, doctor notes and your health summary. You can also schedule appointments with me and other members of your care team, request prescription refills and ask for advice related to your medical conditions at [email or web address]. documented in this encounter Progress Notes * Melinda Estevez RN - 06/25/2023 10:27 AM EST AD8 Dementia Screening Interview Person answering questions: patient Remember, "Yes, a change" indicates that there has been a change in the last several years caused by cognitive (thinking and memory) problems 1. Problems with judgement (eg: problems making decisions, bad financial decisions, problems with thinking). No (0) 2. Less interest in hobbies/activities. No (0) 3. Repeats the same things over and over (questions, stories, or statements). No (0) 4. Trouble learning how to use a tool, appliance, or gadget (eg: VCR, computer, microwave, remote control). No (0) 5. Forgets correct month or year. No (0) 6. Trouble handling complicated financial affairs (eg: balancing checkbook, income taxes, paying bills). No (0) 7. Trouble remembering appointments. No (0) 8. Daily problems with thinking and/or memory. No (0) TOTAL AD8: 0 - AD8 Dementia Screening Score The final score is a sum of the number items marked "Yes, A Change". 0 - 1: Normal cognition; 2 or greater: Cognitive impairments is likely to be present - further testing required Adult Annual Wellness Visit: Nicholas Clemens is a 83 year old female who presents for an Adult Annual Wellness Visit. Depression Screening: Did the patient complete the screening questionnaire for Depression? Yes Is the patient's total score for Depression 15 or greater? No, no further intervention needed, unless requested by patient. Did the patient answer positively to the suicide question? No, no further intervention needed, unless requested by patient. In general, compared to other people your age, what would you say that your health is? Very Good Ht Readings from Last 1 Encounters: 06/25/23 1.486 m (4' 10.5") Wt Readings from Last 1 Encounters: 06/25/23 63.6 kg (140 lb 4.8 oz) Body Mass Index: BMI Less than 30 Body mass index is 28.82 kg/m. BP Readings from Last 1 Encounters: 06/25/23 130/72 Medical/Surgical/Family History Reviewed: Yes Past Medical History: Diagnosis Date Cyst of kidney, acquired Right Renal Cyst Essential hypertension with goal blood pressure less than 140/90 Herpes zoster without complication 04/26/2020 Hypertension Lumbar spinal stenosis Microhematuria 02/12/202002/[address] Refer Uro. Migraine variant Myalgia and myositis Polymyalgia rheumatica (HCC) 08/04/2020 Reflux esophagitis S/P lumbar fusion Past Surgical History: Procedure Laterality Date ANESTH, LUMBAR SPINE/CORD SURGERY 2012 Dr Aj [facility] L2-3 hemilamincotomies. BUNION SURGERY, SIMPLE REMOVAL Bunion Correction,Simple CATARACT SURGERY,COMPLEX Right 09/10/2020 Dr Ulises PAYTON, 1ST STAGE; FACE, HANDS, FEET, NERVE BCC on nose. CA MOHS MICROGRAPHIC H/N/H/F/G 1ST STAGE 5 BLOCKS Left 07/02/2021 MOHS repair left eye- REMOVAL OF APPENDIX age 21 Appendectomy REMOVAL OF OVARY(S) Oopherectomy,Uni SPINAL FUSION, LUMBAR, COMBINED 04/2018 [facility] L5-Sacral fusion. TOTAL HYSTERECTOMY age 44 REE (Total Abdominal Hysterectomy) for fibroids Family History Problem Relation Age of Onset Cancer Mother lymphoma age 58 Diabetes Mother Cancer Father colon cancer age 73 Other (Other) Sister older age. had recurrent aspiration Diabetes Brother Other (89 '22 alive doing well [employer] shayy) Brother lives local ALS Brother Brain Aneurysm Brother much later 89 Diabetes Brother complications. Cancer Brother Other (hypothyroid) Daughter Other (hypothroid) Son Other (hypothyroid) Son Has patient ever had cancer? History of cancer, type: BCC and location: face Social History Tobacco Use Smoking status: Former Packs/day: 0.50 Years: 20.00 Additional pack years: 0.00 Total pack years: 10.00 Types: Cigarettes Quit date: 07/26/1988 Years since quittin.9 Passive exposure: Past Smokeless tobacco: Never Substance Use Topics Alcohol use: Yes Alcohol/week: 1.0 standard drink of alcohol Types: 1 5 oz of wine per week Comment: 1-3 per week Vaping/E-Cigarette Use Vaping/E-Cigarette Use Never User Vaping/E-Cigarette Substances Vaping/E-Cigarette Devices Tobacco/Alcohol screening completed today? Yes Hospital Care: Admissions (within the last year): Not Applicable ER within 30 days: No Does the patient have an Advance Directives/Living Will? Yes Last Physical Exam: Last physical exam: 06/07/2023 Does patient see primary provider regularly? Yes Does patient see other providers? Yes, Specialist Patient Care Team updated? Yes Review of patient's allergies indicates: Allergen Reactions Morphine And Related Nausea/vomiting codeine Immunization History Administered Date(s) Administered COVID-19 mRNA, LNP-s, No Preserve, 2-Dose Series ([employer]) 09/17/2020, 10/08/2020, 04/22/2021, 11/27/2021 COVID-19, MRNA-LNP, 23-24, PF, 30 MCG/0.3 mL, 12 YRS AND ABOVE, IM ([employer]- Comircharles) 05/13/2023 Covid-19, Mrna, Lnp-s, Pf, Bivalent, 30 Mcg, IM, 12 yrs and above (Pfizer) 04/07/2022, 12/02/2022 Pneumococcal Conjugate Vacc, 13 Valent (Prevnar) 03/27/2015, 03/27/2020 Pneumococcal Polysaccharide PPV23 (Pneumovax) 04/02/2016 Seasonal Influenza, Quadrivalent Hd (Fluzone Hd) 04/07/2021, 03/31/2022, 04/14/2023 Seasonal Influenza, Quadrivalent Hd, 65+ Yrs 03/27/2020 Seasonal Influenza, Trivalent, High Dose, No Preserve, IM 03/27/2020 TDAP (age 10 and older)(Boostrix) 08/02/2020 Zoster Vaccine Recombinant (Shingrix) 08/02/2020, 12/19/2020 Current Outpatient Medications Medication Sig Dispense Refill predniSONE 1 MG Oral Tablet (Deltasone) Take 2 tablets by mouth once daily (Patient taking differently: Take 1 Tablet by mouth in the morning.) 180 Tablet 3 Levothyroxine Sodium 25 MCG Oral Tablet (Levoxyl) Take 1 Tablet by mouth in the morning. (at least 30 min prior to breakfast or other meds). 90 Tablet 1 hydroCHLOROthiazide 25 MG Oral Tablet (Hydrodiuril) Take 1 tablet by mouth once daily 90 Tablet 3 Losartan Potassium 25 MG Oral Tablet (Cozaar) Take 1 tablet by mouth once daily 90 Tablet 3 Acetaminophen 500 MG Oral Tablet (Tylenol Extra Strength) Take 2 Tablets by mouth every 8 hours as needed for Pain, Mild. Takes 1-2 tabs as needed, not to exceed 3000 mg/day No current facility-administered medications for this visit. Patient Active Problem List Diagnosis Code Reflux esophagitis K21.00 Essential hypertension with goal blood pressure less than 140/90 I10 Myalgia and myositis [id number] Lumbar spinal stenosis M48.061 Cyst of kidney, acquired N28.1 S/P lumbar fusion Z98.1 Abn findings on dx imaging of abd regions, inc retroperiton R93.5 Well adult exam Z00.00 Herpes zoster without complication B02.9 Polymyalgia rheumatica (HCC) M35.3 Onychomycosis B35.1 Trigger finger of left thumb M65.312 Medication Compliance: Patient is able to obtain all of her medications? Yes Patient takes medications as prescribed? Yes Patient manages own medications: Yes Patient uses a pill box? Yes, refill(s) completed by self Dental Exam: Yes: Every 6 Months Eye Screening: Yes: Every year Are you having trouble with hearing? No Do you use an assistive device to help your hearing? No Exercise Screening: only the exercise associated with activities at work Nutrition Assessment: Eats a balanced diet and Eats three meals a day Pain Screening: Are you having any pain? Yes. Pain Scale: 5 out of 10; Location: lower back and bilateral hands, When: all the time, Duration: back- years, hands-several months Aggravating Factors: certain movements or if sitting for prolonged periods , Relieved by: tylenol Sleep Screening Tool 'STOP': Do you snore? No Do you feel fatigued during the day? Yes-sometimes Do you wake up feeling like you haven't slept? Yes-sometimes Have you been told you stop breathing at night? No Do you gasp for air or choke while sleeping? No Have you been told you have Sleep Apnea? No Do you have high blood pressure or are on medication(s) to control high blood pressure? Yes SCORE: If you check YES to two or more questions, make a referral for Obstructive Sleep Apnea Declines need for sleep study at this time Patient and Caregiver Support System: Patient lives with a spouse and with children Means of Transportation: Drives. Not a concern. Patient lives in Two Story - How many stairs: 13-15 steps Community Resources: Not Applicable Functional Status and ADL Skills: Has patient ever had an amputation? No Functional Assessment: 80- Normal activity with effort: some symptoms of disease Ambulation: Patient ambulates without assistive device. Independent Dressing: Gets clothes and dresses without any assistance: Independent Able to move freely in chair or bed including turning over: Independent Repositioning (bed or chair): Not applicable Transfers: Independent Toileting: Goes to bathroom, uses toilet, arranges clothes and returns without any assistance: Independent Toileting: continent of bladder and continent of bowel-occ leakage of urine Feeding: Self Bathing: Self; walk in shower-has grab bars, seat in shower, textured floor in shower, steps out onto mat/rug Requires none assistance with ADLs. Instrumental ADL's: Shopping: Independent Housekeeping: Independent Handling Finances: Independent DME Vendor Name: Not Applicable Fall Risk Assessment: Can the patient demonstrate that she can stand from a sitting position? Yes Has the patient had a fall within the last 6 months? No Does the patient have a problem with her gait or balance? No Does the patient take 4 or more prescription medicines? Yes Does the patient use sedatives or narcotics? No Fall Risk Factors Present: Uses more than 4 medications Older than age 70 Tax-Nr-pnr-Go Test: Time began at 10:00. Patient stood from sitting position and walked approximately 10 feet, returnedand sat down. Total time for eka-ev-rjq-go test was 7.66 seconds. Fls-Nt-ztq-Go Test completed? Yes Gender Specific Preventative Plan: Health Maintenance Topic Date Due GFR 12/31/2023 TSH 02/26/2024 Depression Screening 06/07/2024 Albumin/Creatinine Ratio 12/02/2025 DXA Scan 09/18/2027 DTaP,Tdap,and Td Vaccines (2 - Td or Tdap) 08/02/2030 Influenza Vaccine (FLU shot) Completed Zoster Vaccines Completed Pneumococcal Vaccine: 65+ Years Completed COVID-19 Vaccine Completed Hepatitis B Aged Out MENINGOCOCCAL (MENACTRA/MENVEO) Aged Out GARDASIL-HPV IMMUNIZATION SERIES Aged Out Follow Up/ Referrals/Handouts: No further action needed Routine general medical examination at a health care facility (Primary) Cyst of kidney, acquired Continue to monitor Essential hypertension with goal blood pressure less than 140/90 BP Readings from Last 3 Encounters: 06/25/23 130/72 06/07/23 138/80 03/02/23 128/76 Continue to monitor and with current medication Spinal stenosis of lumbar region, unspecified whether neurogenic claudication present S/P lumbar fusion Continue to monitor and with current medication. Follow up as needed. See below- message sent to Dr Pierce Polymyalgia rheumatica (HCC) Continue to monitor and with current medication as needed. Gastroesophageal reflux disease with esophagitis, unspecified whether hemorrhage Continue to monitor diet Pt is up to date with her immunizations Pt has several concerns Having bilateral hand pain and weakness-hard time opening jars, using her mixer, etc. States right arm has a tremor-hard time carrying a cup of coffee. Feels like losing strength in her right arm. Right lower back pain-h/o surgery in past. States pain radiates all over, not specifically down right leg. Using tylenol 500 mg 1-2 tabs prn but not really helping. Asking if there is anything else she can be doing for this. States she thinks she has talked about this with Dr Pierce but feels its getting worse. Message forward to Dr Pierce for recommendations-see other encounter Discussed bringing in a copy of her living will to have scanned into her chart. Encouraged to follow up with her eye provider. . Pt scored 7 on her depression screening-mild depression-continue to monitor Follow Up: Return in 1 year (on 06/25/2024) for 12 month Subsequent Adult Wellness Visit. | For: 12 month Subsequent Adult Wellness Visit | Check-out note: 12 month Subsequent Adult Wellness Visit Would patient like to schedule next AWV visit? Yes Melinda Estevez RN documented in this encounter Miscellaneous Notes * Pt Handout (on AVS) - Melinda Estevez RN - 06/25/2023 10:54 AM EST Images from the original note were not included. [id number] Preventing Falls: Making Changes in Your Living Space Is your living space filled with hazards that could cause you to fall? Changes can make you safer. They could even save your life. Take a careful look around your home. Change what you can on your own. Hire someone or ask friends or family to help with harder tasks. Be sure to add a nonslip mat to the inside of your shower or bathtub. Always keep a nightlight on. Keep a clear path from your bed to the bathroom. Move items from higher shelves to lower ones. Remove hazards Remove things that can trip you, like throw rugs, boxes, piles of paper, or cords. Nail down rugs or carpeting if you don't want to remove them. Use slip- resistant backing. Don't store items on stairs. Keep walkways clear. Clean up spills right away. Replace glass tables with wooden ones. They're safer if you fall. Add safety devices Add handrails to both sides of stairs. Buy a raised toilet seat. Add grab bars near the toilet and in the shower. Get grabbers to help you reach things and avoid climbing. Improve lighting Add nightlights to halls, bedrooms, and bathrooms. Put light switches at the top and bottom of stairs. Be sure each room and flight of stairs has proper lighting. Use shades or curtains to cut glare from windows. Put flashlights in each room. Replace burned-out bulbs. Get glowing light switches for room entrances. Take other precautions Use nonskid floor wax. Buy a nonslip mat and a liquid soap dispenser for the shower. Put most-used items within easy reach. Add bright paint or tape on the top front edge of steps. Save big jobs, such as moving furniture or other heavy objects, for family or friends. Get professional help installing grab bars. They can be unsafe if not installed the right way. Fix riskier rooms first Don't tackle everything at once. Focus on one room at a time. The bathroom is a common spot for falls, so you may want to start there. Or start with a room you spend lots of time in, such as your bedroom. Make only a few changes at once. This will give you time to adjust to them. Outside safety You might arrange for these changes yourself, or you might need to talk to your decorator street and building orhomeowners' association about them. Have loose boards on porches or damaged stairs repaired. Have rough edges, holes, or large cracks in sidewalks or driveways repaired. Remove hazards that could trip you, such as hoses or rios. Use high-wattage light bulbs ([address] or greater) near outside doors and stairs. Add handrails to outside stairs. Have them extend beyond the bottom step. Get help in winter weather with ice or snow removal. Last Reviewed Date: 06/25/202219995099-0774 [employer]. All rights reserved. This information is not intended as a substitute for professional medical care. Always follow your healthcare professional's instructions. * Pt Handout (on AVS) - Melinda Estevez RN - 06/25/2023 10:54 AM EST [id number] Fall Prevention Falls often take place due to slipping, tripping, or losing your balance. Millions of people fall every year and injure themselves. Among older adults in the [place] falls are the most common cause of traumatic brain injuries. Every 20 minutes, an older adult dies from a fall. Here are ways to reduceyour risk of falling again: Think about your fall. Was there anything that caused your fall that can be fixed, removed, or replaced? Make your home safe by keeping walkways clear of objects you may trip over, such as electrical cords. Use nonslip pads under rugs. Don't use area rugs or small throw rugs. Use nonslip mats in bathtubs and showers. Hang grab rails by the toilet and inside and outside the shower. Install handrails and lights on staircases. The handrails should be on both sides of the stairs. Use night lights. Don't walk in poorly lit areas. Don't stand on chairs or wobbly ladders. Use care when reaching overhead or looking up. This position can cause a loss of balance. Be sure your shoes fit well, are in good condition, and have nonslip bottoms. Wear shoes both inside and outside of your home. Don't go barefoot or wear slippers. Be cautious when going up and down stairs, curbs, and when walking on uneven sidewalks. If your balance is poor, consider using a cane or walker. Talk with your healthcare provider about having a balance assessment. If your fall was related to alcohol use, stop or limit alcohol intake. Ask your provider for help if you think you may overuse alcohol and can't stop. If your fall was related to use of sleeping medicines, talk with your provider about this. You may need to reduce your dosage at bedtime if you wake up during the night to go to the bathroom. To reduce the need for nighttime bathroom trips: o Don't drink fluids for several hours before going to bed o Empty your bladder before going to bed o Men can keep a urinal at the bedside Stay as active as you can. Balance, flexibility, strength, and endurance all come from exercise.They all play a role in preventing falls. Ask your provider which types of activity are right for you. Try to do some type of exercise every day. Get your eyes checked once a year or more often if your vision changes If you have pets, know where they are before you stand up or walk so you don't trip over them. Go over all your medicines with a pharmacist or other provider. This is to see if any of them could make you more likely to fall. Have this type of medicine review at least once every year. If your provider advises a new medicine, ask if the side effects will affect your balance. Don't move quickly from one position to another. For instance, don't stand up fast from sitting.This can cause dizziness and may lead to a fall. Sit down when putting on pants, socks, and shoes. This will make you less likely to lose your balance and fall. Always let your provider know if you have fallen since your last visit. Contact your provider right away if you're having balance problems or falling more often. Last Reviewed Date: 07/26/202119999652-5278 [employer]. All rights reserved. This information is not intended as a substitute for professional medical care. Always follow your healthcare professional's instructions. documented in this encounter Plan of Treatment Upcoming Encounters Date Type Department Care Team (Late st Contact Info) Description 11/18/2023 11:00 AM EDT Office Visit Family Practice [address] [place] [address] [address] [place] [address] Julia Pierce DO [address] [place] [address] 03/16/2024 10:45 AM EDT Office Visit Dermatology [facility] [address] [place] [address] Brandt Stevens MD [address] [place] [address] Health Maintenance Due Date Last Done Comments GFR 12/31/2023 12/30/2022, 11/23, 03/02/2022, Additional history exists TSH 02/26/2024 02/25/2023, 01/2023, 12/02/2022, Additional history exists Depression Screening 06/07/2024 06/25/2023 Albumin/Creatinine Ratio 12/02/2025 12/02/2022, 12/24 DXA Scan [...] Not on filedocumented as of this encounter Visit Diagnoses Diagnosis Routine general medical examination at a health care facility- Primary Cyst of kidney, acquired Acquired cyst of kidney Essential hypertension with goal blood pressure less than 140/90 Spinal stenosis of lumbar region, unspecified whether neurogenic claudication present Polymyalgia rheumatica (HCC) Polymyalgia rheumatica Gastroesophageal reflux disease with esophagitis, unspecified whether hemorrhage S/P lumbar fusion Arthrodesis status documented in this encounter Care Teams Hairspring Vibrator Relationship Specialty Start Date End Date Julia Pierce DO [address] [place] [address] PCP - General Family Medicine 12/30/22 documented as of this encounter
--- OUTSIDE RECORDS SUMMARY | 2023-07-24 10:29 | External Medical Summary | Summary of Care ---
Author Name Unknown Organization [facility] Address [address] [place] [address] Phone [phone] Care Team Providers Care Television Script Writer Name Role Phone Julia Pierce DO Primary Care Provider [phone] Reason for Visit * Reason Onset Date Comments Advice 06/25/2023 Encounter Details Date Type Department Care Team (Late st Contact Info) Description 06/25/2023 Telephone Family Practice [address] [facility] [place] [address] [place] [address] Julia Pierce DO [address] [place] [address] Advice Allergies Active Allergy Reactions Criticality Noted Date Comments Morphine And Related Nausea/vomiting 07/10/1999 codeine documented as of this encounter (statuses as of 06/25/2023) Medications Medication Sig Dispensed Refills Start Date End Date Status predniSONE 1 MG Oral Tablet (Deltasone)Indicatio ns:Polymyalgia rheumatica (HCC) Take 2 tablets by mouth once daily 180 Tablet 3 11/27/2021 Active Additional Information Patient taking differently: 1 mg Oral Daily(AM), Reported on 12/30/2022 Levothyroxine Sodium 25 MCG Oral Tablet (Levoxyl)Indications :Acquired hypothyroidism Take 1 Tablet by mouth in [...] not to exceed 3000 mg/day 0 Active documented as of this encounter (statuses as [...] CT abnormal 2013 echo WNL 2015 DEXA [facility] WNL 12/03 Colon [facility] Dr Abdi--Quiescent IBD, UC? 01/03 stress test [...] mRNA, LNP-s, No Pre serve, 2-Dose Series ([employer]) 11/27/2021,04/22/2021,10/08/2020,09/17 COVID-19, MRNA-LNP, 23-24, P F, 30 MCG/0.3 mL, 12 YRS AND ABOVE, IM (PFIZER-Comirnaty) 05/13/2023 Covid-19, Mrna, Lnp-s, Pf, B ivalent, 30 Mcg, IM, 12 yrs and above (Pfizer) 12/02/2022,04/07/2022 Pneumococcal Conjugate Vacc, 13 Valent (Prevnar) [...] encounter Miscellaneous Notes * Telephone Encounter - Melinda Gonzales CLEAN IN PLACES OPERATOR - 06/25/2023 4:39 PM EST Will call in after returning from [facility] regarding her hands. Pain does not radiate down legs. She said she will call in October and let us know if worsening. Thank you * Telephone Encounter - Julia Pierce DO - 06/25/2023 2:02 PM EST For her hand arthritis, there is not much left to offer given limitations of medications/other health issues. Can see ortho to see if they have any recommendations. I am not sure what she means by pain in her back "radiating all over". If she is getting pain down the legs, we can consider doing further work-up with MRI, etc. Would need appt. Can consider PT. Other medications pending work-up. * Telephone Encounter - Melinda Estevez RN - 06/25/2023 11:01 AM EST Pt in for her AWV today Having bilateral hand pain and weakness-hard time [...] worse. Message forward to Dr Pierce for recommendations. documented in this encounter Plan of Treatment Upcoming Encounters Date Type Department Care Team (Late st Contact Info) Description 11/18/2023 11:00 AM EDT Office Visit Family Practice 65 [facility], [address] [place] [address] Julia Pierce DO 293 [facility] [address] 03/16/2024 10:45 AM EDT Office Visit Dermatology [facility] 200 [facility] [place], [place] [address] Brandt Stevens MD 200 [facility] [place], [place] [address] 07/04/2024 1:00 PM EST Nurse Only Ancillary 65 [facility] 293 [place] [address] College, Nurse Annual Wellness Visit [address] [facility] [address] [place] [address] Health Maintenance Due Date Last Done Comments [...] filedocumented as of this encounter Care Teams Television Script Writer Relationship Specialty Start Date End Date Julia Pierce DO [address] [place] [address] PCP - General Family Medicine 12/30/22 documented as of this encounter
--- OUTSIDE RECORDS SUMMARY | 2023-07-24 10:29 | External Medical Summary | Summary of Care ---
Author Name Unknown Organization [facility] Address [address] [place] [address] Phone [phone] Care Team Providers Care Garden Implement Mechanic Name Role Phone TutuJulia segura Shaila SANCHEZ Primary Care Provider + [phone] Reason for Visit * Reason Comments Mohs Surgery * Evaluate & Treat - Unlimited Visits (Within 30 days (routine)) - Closed Specialty Diagnoses / Procedures Referred By Irma resendiz Referred To Contact Dermatology Diagnoses Basal cell carcinoma (BCC) of forehead Brandt Stevens MD [address] [place] [id number] Referral ID Status Reason Start Date Expiration Date V isits Requested Visits Authorized [id number] Closed Specialty Services Required 03/10/2023 1 1 Encounter Details Date Type Department Care Team Description 03/30/2023 Office Visit MOHS Surgery [facility] [address] [place] [address] Shaila Baez MD [address] [place] [address] Basal cell carcinoma (BCC) of right forehead* Allergies Active Allergy Reactions Severity Noted Date Comments Morphine And Related Nausea/vomiting 07/10/1999 codeine documented as of this encounter (statuses as of 04/02/2023) Medications Medication Sig Dispensed Refills Start Date End Date Status predniSONE 1 MG Oral Tablet (Deltasone)Indicatio ns:Polymyalgia rheumatica (HCC) Take 2 tablets by mouth once daily 180 Tablet 3 11/27/2021 Active Additional Information Patient taking differently: 1 mg Oral Daily(AM), Reported on 12/30/2022 Losartan Potassium 25 MG Oral Tablet (Cozaar) Take 1 tablet by mouth once daily 90 Tablet 1 11/12/2022 Active hydroCHLOROthiazide 25 MG Oral Tablet (Hydrodiuril) Take 1 tablet by mouth once daily 90 Tablet 1 11/12/2022 Active Naproxen Sodium 220 MG Oral Tablet (Aleve) Take 1 Tablet by mouth 2 times a day as needed for Pain. 0 12/30/2022 Active Levothyroxine Sodium 25 MCG Oral Tablet (Levoxyl)Indications :Acquired hypothyroidism Take 1 Tablet by mouth in the morning. (at least 30 min prior to breakfast or other meds). 90 Tablet 1 03/05/2023 Active documented as of this encounter (statuses as of 04/02/2023) Active Problems Problem Noted Date Onychomycosis 12/19/2021 Trigger finger of left thumb 12/19/2021 Polymyalgia rheumatica 08/04/2020 Herpes zoster without complication 04/26 Abn findings on dx imaging of abd region s, inc retroperiton 02/12/2020 Overview: 02/11 CT-pancreas, sher 2y Well adult exam 02/12/2020 Overview: Need repeat colon? 05/14 lumbar MRI done. 02/11 CT-pancreas, sher 2y, Refer uro for microhematuria/bladder CT abnormal 2013 echo WNL 2015 DEXA [facility] WNL 12/03 Colon [facility] Dr Abdi--Quiescent IBD, UC? 01/03 stress test [facility] WNL Reflux esophagitis Essential hypertension with goal blood p ressure less than 140/90 Myalgia and myositis Lumbar spinal stenosis Cyst of kidney, acquired Overview: Right Renal Cyst S/P lumbar fusion documented as of this encounter (statuses as of 04/02/2023) Resolved Problems Problem Noted Date Resolved Date Left groin pain 12/19/2021 11/10/2022 Microhematuria 02/12/2020 11/10/2022 Overview: 02/[address] Refer Uro. JOINT PAIN-SHLDER 12/24/1998 01/09/2020 URIN TRACT INFECTION NOS 020 documented as of this encounter (statuses as of 04/02/2023) Immunizations Name Administration Dates Next Due COVID-19 mRNA, LNP-s, No Pre serve, 2-Dose Series (Pfizer) 11/27/2021,04/22/2021,10/08/2020,09/17 Covid-19, Mrna, Lnp-s, Pf, B ivalent, 30 Mcg, IM, 12 yrs and above (Pfizer) 12/02/2022,04/07/2022 Pneumococcal Conjugate Vacc, 13 Valent (Prevnar) 03/27/2020,03/27/2015 Pneumococcal Polysaccharide PPV23 (Pneumovax) 04/02/2016 Seasonal Influenza, Quadriva lent Hd (Fluzone Hd) 03/31/2022,04/07/2021 Seasonal Influenza, Quadriva lent Hd, 65+ Yrs [...] oz pur e alcohol) 1-3 per week Food Insecurity Answer Date Recorded Within the past 12 months, y ou worried that your food would run out before you got money to buy more. Never true 03/02/2023 Within the past 12 months, t he food you bought just didn't last and you didn't have money to get more. Never true 03/02/2023 Sex Assigned at Date Recorded Female 01/14/2022 11:23 AM EDT Job Start Date Occupation Industry Not on file Not on file Not on file documented as of this encounter Progress Notes * Shaila Baez MD - 03/30/2023 8:25 AM EDT History: Nicholas Clemens is a 83 year old year old patient seen at the request for consultation by Dr. Stevens for evaluation and management of BCC, right frontal hairline. No outpatient medications have been marked as taking for the 03/30/23 encounter (Appointment) with Shaila Baez MD. Review of patient's allergies indicates: Allergen Reactions Morphine And Related Nausea/vomiting codeine ROS: The patient feels generally well and has no other skin complaints. Exam: Patient is alert, oriented and in no distress. Exam is of the skin and mucosa of face. The patient is alert and oriented and appears generally well. The patient's skin is remarkable for an atrophic healing biopsy site measuring 0.7 cm. (site confirmed with photo taken at time of biopsy). Impression: 1. BCC, right frontal hairline Plan: 1. Plan for Mohs surgery today. Risks, benefits and alternatives discussed with patient. Risks suchas (but not limited to) scar, infection, bleeding, hematoma, and recurrence disussed. Questions answered. Informed consent form discussed and signed. Photograph obtained of lesion for medical record. Patient identified, procedure verified, site identified and verified. Time out completed. Surgical removal of the lesion discussed with the patient (risks and benefits, including possibility of scarring, infection, recurrence or potential for further treatment). I have specifically identified the site with the patient. I have discussed the fact that the patient will have a scar after the procedure regardless of granulation or repair with sutures. I have discussed that the repair options can range from granulation in some cases to linear or curvilinear closures to larger flaps or grafts. There are sometimes flaps or grafts used that require multiple stages of surgery and will not be completed today , rather be completed over a series of appointments. I have discussed that occasionally due to location , size or depth of the lesion I may recommend consultation with and transfer of care for further removal or the the reconstruction to another provider such as ophthalmology surgery , plastic surgery, ENT surgery or surgical oncology. There are cases in which other testing such as imaging with MRI or CT scan or testing of lymph nodes is recommended because of the nature/ depth/ location of tumor seen during the removal. There is a risk of injury tonerves causing temporary or permanent numbness or the inability to move muscles fully such as the inability to lift eyebrows. Questions answered and verbal and written consent was obtained. Mohs resection today. Tumor cleared in 1 stage . Repaired with purse string and granulation. See operative report for complete details. Marcos Baez MD Associate, Department of Dermatology documented in this encounter Procedure Notes * Shaila Baez MD - 03/30/2023 12:00 PM EDT CLINIC NOTES [facility] [place] [address] MOHS MICROGRAPHIC SURGERY Nicholas Clemens [facility]# [id number] 03/30/2023 MOHS NUMBER: [id number] BIOPSY: [id number] OPERATION: SURGICAL EXCISION OF CUTANEOUS MALIGNANCY USING CONTINUOUS MICROSCOPIC CONTROL(MOHS MICROGRAPHIC SURGERY) DIAGNOSIS: nodular basal cell carcinoma LOCATION: right frontal hairline INDICATION FOR MOHS SURGERY: Location SURGEON: Marcos Baez M.D. SAW GRINDER SURGEON: NONE SAW GRINDER SURGEON: NONE ANESTHETIC: Buffered lidocaine 0.5% with epinephrine 1:200,000 DRAG OUT MAN: Marcos Baez M.D. PREOPERATIVE SIZE OF LESION: 0.7 x 0.6 cm POSTOPERATIVE SIZE OF DEFECT: 0.9 x 0.9 cm ESTIMATED BLOOD LOSS: 5CC PROCEDURE: Time out called. Patient identified. Procedure matches verbalized consent. Site identified and verified and confirmed immediately prior to the procedure. Site marked. Thin layers of tumor-containing tissue were excised at each stage of surgery. These were cut into smaller tissue sections which were examined microscopically in a systematic fashion. Examination of the entire base and superficial peripheral margin allowed microscopic tumor extensions to be located and mapped. In accordance with the Mohs technique, this procedure enabled the maximum amount of normal tissue to be preserved while achieving the highest cure rate for cutaneous malignancy. At each surgical stage, the patient was prepped, the proposed excision outlined on the skin, and the area was reanesthetized as needed. STAGE I: The patient was prepped and the area of surgery was outlined. The operative site was anesthetized with a local injection of buffered lidocaine 0.5% with epinephrine 1:200,000. Following this the clinically apparent portion of the tumor was surgically removed. Hemostasis was achieved with an electrosurgical device. A thin layer of tissue was surgically excised and hemostasis was obtained. A reference map was drawn and the excised tissue was cut into 2 sections for examination in the micrographic laboratory. Edges of each section were dyed in order to achieve precise orientation. Horizontal sectioning of the base and continuous peripheral margins were then carried out and the prepared microscopic sections were examined by Marcos Baez M.D.. Any areas of residual nodular basal cell carcinoma were indicated on the reference map, pinpointing the location in which further tissue excision was necessary. At this point, no further tumor cells were identified and the tumor eradication was considered to be complete for a total of 1 stage of surgery in which multiple microscopic slices of 2 tissue sections had been examined. WOUND MANAGEMENT: This wound was repaired with a combination of purse-string suture and directional guiding sutures. After sterilely preparing, anesthetizing and draping the surgical site, the wound was closed partially with a deep dermal-subcutaneous suture. Additional sutures were then placed to narrow the defect and encourage healing in a favorable direction. This technique was chosen to decrease size of the surgical defect, provide a more desirable cosmetic result and decrease time to epithelialization. Total volume of Buffered lidocaine 0.5% with epinephrine 1:200,000, for Mohs Surgery and reconstruction was 9 ml. The final closure was 0.9 cm. in length. Subcutaneous closure material: Purse string 5-0 Vicryl Cutaneous closure material: None Marcos Baez M.D. Associate Department of Dermatology documented in this encounter Nursing Notes * Gwen Diop LPN - 03/30/2023 8:31 AM EDT Chief Complaint Patient presents with Mohs Surgery Referral Doctor: Rodney Hypertension History: Yes, refer to medication information for treatment. Diabetes History: No Thyroid History: Yes, refer to medication information for treatment. Bleeding Tendency: No Artificial Valve or Joint: No Pacemaker: no Defibrillator: no Hepatitis/HIV Exposure: No Smoking: no Consent signed yes documented in this encounter Miscellaneous Notes * Addendum Note - Rod Martin LPN - 04/02/2023 12:05 PM EDTAddended by: ROD MARTIN on: 04/02/2023 12:05 PM Modules accepted: Orders * Letters - Shaial Baez MD - 03/30/2023 12:00 PM EDT Department of Dermatology [phone] [place] [address] Marcos Baez M.D. Associate Dermatologic Surgery March 30, 2023 Brandt Stevens MD 200 [facility] [place], [place] [address] Nicholas Clemens [id number] MOHS CASE: [id number] DX: nodular basal cell carcinoma Dear Referring Provider, Thank you for referring Nicholas Clemens for treatment of nodular basal cell carcinoma of the right frontal hairline. This tumor required 1 stage for complete removal. The surgical wound was repaired with combination of purse-string and directional guiding sutures. Thanks again for referring your patient to our office. Yours truly, Marcos Baez M.D. documented in this encounter Plan of Treatment Upcoming Encounters Date Type Specialty Care Team Description 04/14/2023 Office Visit Dermatology Shaila Baez MD 200 [place] [address] 06/02/2023 Office Visit Family Medicine Julia Pierce DO 293 [facility] [place] [address] 06/25/2023 Nurse Only [facility], Nurse Annual Wellness Visit [address] [facility] [place] [facility] [address] [place] [address] 03/16/2024 Office Visit Dermatology Brandt Stevens MD [address] [place] [address] Health Maintenance Due Date Last Done Comments Influenza Vaccine (FLU shot) (#1) 2023 03/31/2022, 04/07/2021, 03/27/2020, Additional history exists GFR 12/31/2023 12/30/2022, 11/23, 03/02/2022, Additional history exists TSH 02/26/2024 02/25/2023, 01/2023, 12/02/2022, Additional history exists Depression Screening 03/02/2024 03/02/2023 Albumin/Creatinine Ratio 12/02/2025 12/02/2022, 12/24 DXA Scan 09/18/2027 09/18/2020, 03/14/2015 DTaP,Tdap,and Td Vaccines (2 - Td or Tdap) 08/02/2030 08/02/2020 Pneumococcal Vaccine: 65+ Years Completed 03/27/2020, 04/02/2016, 03/27/2015 Zoster Vaccines Completed 12/19/2020, 08/02/2020 COVID-19 Vaccine Completed 12/02/2022, , 11/27/2021, Additional history exists GARDASIL-HPV IMMUNIZATION SERIES Aged [...] as of this encounter Visit Diagnoses Diagnosis Basal cell carcinoma (BCC) of right forehead- Primary documented in this encounter Care Teams Garden Implement Mechanic Relationship Specialty Start Date End Date Julia Pierce, DO [address] [facility] [place] [place] [address] PCP - General Family Medicine 12/30/22 documented as of this encounter
--- OUTSIDE RECORDS SUMMARY | 2023-07-24 10:29 | External Medical Summary | Summary of Care ---
Author Name Unknown Organization [facility] Address [address] [place] [address] Phone [phone] Care Team Providers Care Telephone Services Sales Representative Name Role Phone Julia Ruvalcaba DO Primary Care Provider Reason for Visit * Reason Onset Date Comments Medication Refill 07/22/2023 Encounter Details Date Type Department Care Team (Late st Contact Info) Description 07/20/2023 Refill Family Practice [address] [place] [address] [place] [phone] Julia Ruvalcaba DO [address] [place] [address] Acquired hypothyroidism; Polymyalgia rheumatica (HCC) Allergies Active Allergy Reactions Criticality Noted Date Comments Morphine And Related Nausea/vomiting 07/10/1999 codeine documented as of this encounter (statuses as of 07/22/2023) Medications Medication Sig Dispensed Refills Start Date End Date Status Acetaminophen 500 MG Oral Tablet (Tylenol Extra Strength) Take 2 Tablets by mouth every 8 hours as needed for Pain, Mild. Takes 1-2 tabs as needed, not to exceed 3000 mg/day 0 Active hydroCHLOROthiazide 25 MG Oral Tablet (Hydrodiuril) Take 1 Tablet by mouth in the morning. 90 Tablet 3 07/21/2023 Active Levothyroxine Sodium 25 MCG Oral Tablet (Levoxyl)Indications :Acquired hypothyroidism Take 1 Tablet by mouth in the morning. (at least 30 min prior to breakfast or other meds). 90 Tablet 1 07/21/2023 Active Losartan Potassium 25 MG Oral Tablet (Cozaar) Take 1 Tablet by mouth in the morning. 90 Tablet 3 07/21/2023 Active predniSONE 1 MG Oral Tablet (Deltasone)Indicatio ns:Polymyalgia rheumatica (HCC) Take 1 Tablet by mouth in the morning. 90 Tablet 3 07/21/2023 Active predniSONE 1 MG Oral Tablet (Deltasone)Indicatio ns:Polymyalgia rheumatica (HCC) Take 2 tablets by mouth once daily 180 Tablet 3 11/27/2021 3 Discontinue d(Refill) Levothyroxine Sodium 25 MCG Oral Tablet (Levoxyl)Indications :Acquired hypothyroidism Take 1 Tablet by mouth in the morning. (at least 30 min prior to breakfast or other meds). 90 Tablet 1 03/05/2023 3 Discontinue d(Refill) hydroCHLOROthiazide 25 MG Oral Tablet (Hydrodiuril) Take 1 tablet by mouth once daily 90 Tablet 3 06/21/2023 3 Discontinue d(Refill) Losartan Potassium 25 MG Oral Tablet (Cozaar) Take 1 tablet by mouth once daily 90 Tablet 3 06/21/2023 3 Discontinue d(Refill) documented as of this encounter (statuses as of 07/22/2023) Active Problems Problem Noted Date Diagnosed Date [...] CT abnormal 2013 echo WNL 2015 DEXA [facility] WNL 12/03 Colon [facility] Dr Abdi--Quiescent IBD, UC? 01/03 stress test [facility] WNL Reflux esophagitis Essential hypertension with goal blood pressure less than 140/90 Myalgia and myositis Lumbar spinal stenosis Cyst of kidney, acquired Overview: Right Renal Cyst S/P lumbar fusion documented as of this encounter (statuses as of 07/22/2023) Resolved Problems Problem Noted Date Diagnosed Date Resolved Date Left groin pain 12/19/2021 11/10/2022 Microhematuria 02/12/2020 11/10/2022 Overview: 02/[address] Refer Uro. JOINT PAIN-SHLDER 12/24/1998 01/09/2020 URIN TRACT INFECTION NOS documented as of this encounter (statuses as of 07/22/2023) Immunizations Name Administration Dates Next Due COVID-19 mRNA, LNP-s, No Pre serve, 2-Dose Series ([employer]) 11/27/2021,04/22/2021,10/08/2020,09/17 COVID-19, MRNA-LNP, 23-24, P F, 30 MCG/0.3 mL, 12 YRS AND ABOVE, IM ([email or web address]) 05/13/2023 Covid-19, Mrna, Lnp-s, Pf, B ivalent, 30 Mcg, IM, 12 yrs and above ([employer]) 12/02/2022,04/07/2022 Pneumococcal Conjugate Vacc, 13 Valent (Prevnar) [...] Answer Date Recorded PHQ Adult Total Score 7 06/25/2023 Hunger Vital Sign Answer Date Recorded Within the past 12 months, y ou worried that your food would run out before you got the money to buy more. Never true 06/25/20 23 Within the past 12 months, t he food you bought just didn't last and you didn't have money to get more. Never true 06/25/2023 Sex and Gender Information Value Date Recorded Sex Assigned at Female 01/14/2022 11:23 AM EDT Gender Identity Female 01/14/2022 11:23 AM EDT Sexual Orientation Straight 01/14/2022 11 :23 AM EDT Job Start Date Occupation Industry Not on file Not on file Not on file documented as of this encounter Miscellaneous Notes * Telephone Encounter - Tish Keenan [facility] - 07/21/2023 9:26 AM ESTSigned Prescriptions: Disp Refills hydroCHLOROthiazide 25 MG Oral Tablet (Hyd*90 Tab*3 Sig: Take 1 Tablet by mouth in the morning. Authorizing Provider: JULIA RUVALCABA Levothyroxine Sodium 25 MCG Oral Tablet (L*90 Tab*1 Sig: Take 1 Tablet by mouth in the morning. (at least 30 min prior to breakfast or other meds). Authorizing Provider: JULIA RUVALCABA [place] Potassium 25 MG Oral Tablet (Coza*90 Tab*3 Sig: Take 1 Tablet by mouth in the morning. Authorizing Provider: JULIA RUVALCABA predniSONE 1 MG Oral Tablet (Deltasone) 90 Tab*3 Sig: Take 1 Tablet by mouth in the morning. Authorizing Provider: JULIA RUVALCABA * Telephone Encounter - Julia Ruvalcaba DO - 07/21/2023 8:46 AM ESTSigned Prescriptions: Disp Refills hydroCHLOROthiazide 25 MG Oral Tablet (Hyd*90 Tab*3 Sig: Take 1 Tablet by mouth in the morning. Authorizing Provider: JULIA RUVALCABA Levothyroxine Sodium 25 MCG Oral Tablet (L*90 Tab*1 Sig: Take 1 Tablet by mouth in the morning. (at least 30 min prior to breakfast or other meds). Authorizing Provider: JULIA RUVALCABA [place] Potassium 25 MG Oral Tablet (Coza*90 Tab*3 Sig: Take 1 Tablet by mouth in the morning. Authorizing Provider: JULIA RUVALCABA predniSONE 1 MG Oral Tablet (Deltasone) 90 Tab*3 Sig: Take 1 Tablet by mouth in the morning. Authorizing Provider: JULIA RUVALCABA * Telephone Encounter - Melinda Gonzales LPN - 07/20/2023 11:09 AM EST Did you pend patient's preferred pharmacy and medication before forwarding?yes Pharmacy: [facility]-[address] Pending Prescriptions: Disp Refills hydroCHLOROthiazide 25 MG Oral Tablet (Hy*90 Tab*3 Sig: Take 1 Tablet by mouth in the morning. Levothyroxine Sodium 25 MCG Oral Tablet (*90 Tab*1 Sig: Take 1 Tablet by mouth in the morning. (at least 30 min prior to breakfast or other meds). Losartan Potassium 25 MG Oral Tablet (Coz*90 Tab*3 Sig: Take 1 Tablet by mouth in the morning. predniSONE 1 MG Oral Tablet (Deltasone) 90 Tab*3 Sig: Take 1 Tablet by mouth in the morning. Last Visit: 06/07/2023 (in office), Visit date not found (telemedicine) Next Visit: 11/18/2023 If no future appointments scheduled, and last appointment is greater than a year ago, please schedule patient for a follow-up appointment Last date the medication was ordered: Is this request for a controlled substance?No Urine Drug Screen:No results found for this or any previous visit. Patient Phone Numbers Labs: Lab Results Component Value Date/Time CREAT 0.7 12/30/2022 11:54 AM CREAT 0.7 01/09/2020 12:09 PM POTASSIUM 4.0 12/30/2022 11:54 AM POTASSIUM 3.8 01/09/2020 12:09 PM TSH 4.01 02/25/2023 12:33 PM LDLCALC 176 (H) 12/19/2021 09:14 AM ALT 18 12/30/2022 11:54 AM HGBA1C 6.1 (H) 04/19/2000 09:34 PM * Telephone Encounter - Linda Parry OSA - 07/20/2023 10:55 AM EST PT NEEDS SCRIPT TO STATE SHE IS LEAVING COUNTRY Pt is requesting this med be filled for 120 days as she is leaving country for several months. States the pharmacy asked her to make sure it is noted on script that she is going out of country (for the amount) She is asking these be sent to [facility] pharmacy on [facility] Also, the prednisone, pt is asking for the 1 MG, there were several options, I did not pick any of them as I was not sure. Pending Prescriptions: Disp Refills hydroCHLOROthiazide 25 MG Oral Tablet (Hy*90 Tab*3 Sig: Take 1 Tablet by mouth in the morning. Levothyroxine Sodium 25 MCG Oral Tablet (*90 Tab*1 Sig: Take 1 Tablet by mouth in the morning. (at least 30 min prior to breakfast or other meds). Losartan Potassium 25 MG Oral Tablet (Coz*90 Tab*3 Sig: Take 1 Tablet by mouth in the morning. predniSONE 1 MG Oral Tablet (Deltasone) 180 Ta*3 Sig: Take 2 Tablets by mouth in the morning. Last Visit: 06/07/2023 (in office), Visit date not found (telemedicine) Next Visit: 11/18/2023 Last date the medication was ordered: Hydrochlorothiazide - 06.21.23 Levothyroxine - 03/05/23 Losartan - 06.21.23 Prednisone - 5.5.22 Patient Active Problem List Diagnosis Code Reflux esophagitis K21.00 Essential hypertension with goal blood pressure less than 140/90 I10 Myalgia and myositis [id number] Lumbar spinal stenosis M48.061 Cyst of kidney, acquired N28.1 S/P lumbar fusion Z98.1 Abn findings on dx imaging of abd regions, inc retroperiton R93.5 Well adult exam Z00.00 Herpes zoster without complication B02.9 Polymyalgia rheumatica (HCC) M35.3 Onychomycosis B35.1 Trigger finger of left thumb M65.312 Labs: Lab Results Component Value Date/Time CREATININE - [facility] 0.7 12/30/2022 11:54 AM CREATININE - [facility] 0.7 01/09/2020 12:09 PM CREATININE, RANDOM URINE - [facility] 34 12/02/2022 11:38 AM CREATININE, RANDOM URINE - [facility] 42 01/09/2020 11:45 AM Lab Results Component Value Date/Time POTASSIUM - [facility] 4.0 12/30/2022 11:54 AM POTASSIUM - [facility] 3.8 01/09/2020 12:09 PM Lab Results Component Value Date/Time TSH - [facility] 4.01 02/25/2023 12:33 PM Lab Results Component Value Date/Time LDL CHOLESTEROL (CALCULATED) - [facility] 176 (H) 12/19/2021 09:14 AM Lab Results Component Value Date/Time ALT - [facility] 18 12/30/2022 11:54 AM Hemoglobin AIC Results: Lab Results Component Value Date/Time HEMOGLOBIN A1C - [facility] 6.1 (H) 04/19/2000 09:34 PM . documented in this encounter Plan of Treatment Upcoming Encounters Date Type Department Care Team (Late st Contact Info) Description 11/18/2023 11:00 AM EDT Office Visit Family Practice [address], [place] [address] [place] [address] Julia Ruvalcaba DO [address] [facility], [place] [address] 03/16/2024 10:45 AM EDT Office Visit Dermatology [facility] [place] [address] [facility] [place] [address] Brandt Stevens MD [address] [id number] 07/04/2024 1:00 PM EST Nurse Only Ancillary [address] [facility] [address] [place] [address] College, Nurse Annual Wellness Visit [address] [facility] [address] [place] [address] Health Maintenance Due Date Last Done Comments GFR 12/31/2023 12/30/2022, 11/23, 03/02/2022, Additional history exists TSH 02/26/2024 02/25/2023, 01/2023, 12/02/2022, Additional history exists Depression Screening 06/25/2024 06/25/2023 Albumin/Creatinine Ratio 12/02/2025 12/02/2022, 12/24 DXA [...] as of this encounter Visit Diagnoses Diagnosis Acquired hypothyroidism Unspecified hypothyroidism Polymyalgia rheumatica (HCC) Polymyalgia rheumatica documented in this encounter Care Teams Telephone Services Sales Representative Relationship Specialty Start Date End Date Julia Ruvalcaba DO [address] [place] [address] PCP - General Family Medicine 12/30/22 documented as of this encounter
--- OUTSIDE RECORDS SUMMARY | 2023-07-24 10:29 | External Medical Summary | Summary of Care ---
Author Name Unknown Organization [facility] Address [address] [place] [address] Phone [phone] Care Team Providers Care Cardiac Catheterization Technologist Name Role Phone Julia Pierce DO Primary Care Provider Encounter Details Date Type Department Care Team Description 04/14/2023 Telephone Family Practice [address], [place] [address] [place] [address] Julia Pierce DO [address] [place] [address] Allergies Active Allergy Reactions Severity Noted Date Comments Morphine And Related Nausea/vomiting 07/10/1999 codeine documented as of this encounter (statuses as of 04/27/2023) Medications Medication Sig Dispensed Refills Start Date [...] as of this encounter (statuses as of 04/27/2023) Active Problems Problem Noted Date Onychomycosis 12/19/2021 [...] CT abnormal 2013 echo WNL 2015 DEXA [facility] WNL 12/03 Colon [facility] Dr Abdi--Quiescent IBD, UC? 01/03 stress test [facility] WNL Reflux esophagitis Essential hypertension with goal blood p ressure less than 140/90 Myalgia and myositis Lumbar spinal stenosis Cyst of kidney, acquired Overview: Right Renal Cyst S/P lumbar fusion documented as of this encounter (statuses as of 04/27/2023) Resolved Problems Problem Noted Date Resolved Date Left groin pain 12/19/2021 11/10/2022 Microhematuria 02/12/2020 11/10/2022 Overview: 02/[address] Refer Uro. JOINT PAIN-SHLDER 12/24/1998 01/09/2020 URIN TRACT INFECTION NOS 020 documented as of this encounter (statuses as of 04/27/2023) Immunizations Name Administration Dates Next Due COVID-19 mRNA, LNP-s, No Pre serve, 2-Dose Series ([employer]) 11/27/2021,04/22/2021,10/08/2020,09/17 Covid-19, Mrna, Lnp-s, Pf, B ivalent, [...] Miscellaneous Notes * Telephone Encounter - Tish Hatfield RPh - 04/27/2023 10:28 AM EDT Spoke to patient - they do not have drug coverage through [facility] so they are not eligible for mail order. Patient aware. Tish Hatfield, Pharm D, BCACP Clinical Pharmacist [address] - [facility] 04/27/2023, 10:30 AM Ph. [phone] * Telephone Encounter - Melinda Estevez RN - 04/14/2023 1:46 PM EDT Pt in for her flu vaccine and was inquiring about getting [facility]. Brochure given. She would like to discuss changing. Told I would have the pharmacist call her to get registered. She said her Dre would be interested also. Message forwarded to pharmacy. documented in this encounter Plan of Treatment Upcoming Encounters Date Type Specialty Care Team Description 06/02/2023 Office Visit Family Medicine Julia Pierce, DO [address] [place] [address] 06/25/2023 Nurse Only [facility] Annual Wellness Visit [address] [facility] [address] [place] [address] 03/16/2024 Office Visit Dermatology Brandt Stevens MD [address] [place] [address] Health Maintenance Due Date Last Done Comments COVID-19 Vaccine ( season) 2023 12/02/2022, 04/07/2022, 11/27/2021, Additional history exists GFR 12/31/2023 12/30/2022, 11/23, [...] Completed , 03/31/2022, 04/07/2021, Additional history exists GARDASIL-HPV IMMUNIZATION SERIES Aged [...] filedocumented as of this encounter Care Teams Cardiac Catheterization Technologist Relationship Specialty Start Date End Date Julia Pierce, DO [address] [place] [address] PCP - General Family Medicine 12/30/22 documented as of this encounter
--- OUTSIDE RECORDS SUMMARY | 2023-07-24 10:29 | External Medical Summary | Summary of Care ---
Author Name Unknown Organization [facility] Address [address] [place] [address] Phone [phone] Care Team Providers Care Pets Salesperson Name Role Phone Julia Pierce DO Primary Care Provider Reason for Visit * Reason Comments Follow Up 3 mo return Encounter Details Date Type Department Care Team (Latest Contact Info) Description 06/07/2023 10:00 AM EST Office Visit Family Practice [address] [place] [address] [place] [address] Julia Pierce DO [address] [place] [address] Essential hypertension with goal blood pressure less than 140/90*; Generalized osteoarthritis Allergies Active Allergy Reactions Criticality Noted Date Comments Morphine And Related Nausea/vomiting 07/10/1999 codeine documented as of this encounter (statuses as of 06/07/2023) Medications Medication Sig Dispensed Refills Start Date [...] as of this encounter (statuses as of 06/07/2023) Active Problems Problem Noted Date Diagnosed Date [...] CT abnormal 2013 echo WNL 2015 DEXA [facility] WNL 12/03 Colon [facility] Dr Abdi--Quiescent IBD, UC? 01/03 stress test [facility] WNL Reflux esophagitis Essential hypertension with goal blood pressure less than 140/90 Myalgia and myositis Lumbar spinal stenosis Cyst of kidney, acquired Overview: Right Renal Cyst S/P lumbar fusion documented as of this encounter (statuses as of 06/07/2023) Resolved Problems Problem Noted Date Diagnosed Date Resolved Date Left groin pain 12/19/2021 11/10/2022 Microhematuria 02/12/2020 11/10/2022 Overview: 02/[address] Refer Uro. JOINT PAIN-SHLDER 12/24/1998 01/09/2020 URIN TRACT INFECTION NOS documented as of this encounter (statuses as of 06/07/2023) Immunizations Name Administration Dates Next Due COVID-19 mRNA, LNP-s, No Pre serve, 2-Dose Series ([employer]) 11/27/2021,04/22/2021,10/08/2020,09/17 COVID-19, MRNA-LNP, 23-24, P F, 30 [...] Passive Smoke Exposure: Past Smokeless Tobacco: Never Tobacco Cessation:Counseling Given: Yes Alcohol Use Standard Drinks/Week Comments Yes 1 (1 standard drink = 0.6 oz pur e alcohol) 1-3 per week PHQ-2 Answer Date Recorded PHQ Adult Total Score 0 03/02/2023 Hunger Vital Sign Answer Date Recorded Within the past 12 months, y ou worried that your food would run out before you got the money to buy more. Never true 03/02/20 23 Within the past 12 months, t he food you bought just didn't last and you didn't have money to get more. Never true 03/02/2023 Sex and Gender Information Value Date Recorded Sex Assigned at Female 01/14/2022 11:23 AM EDT Gender Identity Female 01/14/2022 11:23 AM EDT Sexual Orientation Straight 01/14/2022 11 :23 AM EDT Job Start Date Occupation Industry Not on file Not on file Not on file documented as of this encounter Last Filed Vital Signs Vital Sign Reading Time Taken Comments Blood Pressure 138/80 06/07/2023 10:21 AM EST Pulse 59 06/07/2023 10:21 AM EST Temperature 36.6 C (97.9 F) 06/07/2023 10:[address] Respiratory Rate 13 06/07/2023 10:21 AM EST Oxygen Saturation 94% 06/07/2023 10:21 AM EST Inhaled Oxygen Concentration - - Weight 63 kg (139 lb) 06/07/2023 10:21 AM EST Height 152.4 cm (5') 06/07/2023 10:21 AM EST Body Mass Index 27.15 06/07/2023 10:21 AM EST documented in this encounter Progress Notes * Julia Pierce, DO - 06/07/2023 10:16 AM EST SUBJECTIVE: Chief Complaint Patient presents with Follow Up 3 mo return HPI: Nicholas Clemens is a 83 year old female who presents today for regular return. Pt states that she is having difficulty moving. She states that her muscles feel like they are giving out. She notesthat her hands are very stiff. She has a lot of discomfort. She cannot open things. She does try toknit. PHM: Patient Active Problem List Diagnosis Code Reflux esophagitis K21.00 Essential hypertension with goal blood pressure less than 140/90 I10 Myalgia and myositis [id number] Lumbar spinal stenosis M48.061 Cyst of kidney, acquired N28.1 S/P lumbar fusion Z98.1 Abn findings on dx imaging of abd regions, inc retroperiton R93.5 Well adult exam Z00.00 Herpes zoster without complication B02.9 Polymyalgia rheumatica (HCC) M35.3 Onychomycosis B35.1 Trigger finger of left thumb M65.312 Current Outpatient Medications Medication Sig Dispense Refill predniSONE 1 MG Oral Tablet (Deltasone) Take 2 tablets by mouth once daily (Patient taking differently: Take 1 Tablet by mouth in the morning.) 180 Tablet 3 Losartan Potassium 25 MG Oral Tablet (Cozaar) Take 1 tablet by mouth once daily 90 Tablet 1 hydroCHLOROthiazide 25 MG Oral Tablet (Hydrodiuril) Take 1 tablet by mouth once daily 90 Tablet 1 Naproxen Sodium 220 MG Oral Tablet (Aleve) Take 1 Tablet by mouth 2 times a day as needed for Pain. Levothyroxine Sodium 25 MCG Oral Tablet (Levoxyl) Take 1 Tablet by mouth in the morning. (at least 30 min prior to breakfast or other meds). 90 Tablet 1 No current facility-administered medications for this visit. Past Medical History: Diagnosis Date Cyst of kidney, acquired Right Renal Cyst Essential hypertension with goal blood pressure less than 140/90 Herpes zoster without complication 04/26/2020 Hypertension Lumbar spinal stenosis Microhematuria 02/12/202002/[address] Refer Uro. Migraine variant Myalgia and myositis Polymyalgia rheumatica (HCC) 08/04/2020 Reflux esophagitis S/P lumbar fusion Past Surgical History: Procedure Laterality Date ANESTH, LUMBAR SPINE/CORD SURGERY 2012 Dr Aj [facility] L2-3 hemilamincotomies. BUNION SURGERY, SIMPLE REMOVAL Bunion Correction,Simple CATARACT SURGERY,COMPLEX Right 09/10/2020 Dr Ulises PAYTON, 1ST STAGE; FACE, HANDS, FEET, NERVE BCC on nose. [place] MOHS MICROGRAPHIC H/N/H/F/G 1ST STAGE 5 BLOCKS Left 07/02/2021 MOHS repair left eye- REMOVAL OF APPENDIX age 21 Appendectomy REMOVAL OF OVARY(S) Oopherectomy,Uni SPINAL FUSION, LUMBAR, COMBINED 04/2018 [facility] L5-Sacral fusion. TOTAL HYSTERECTOMY age 44 REE (Total Abdominal Hysterectomy) for fibroids Review of patient's allergies indicates: Allergen Reactions Morphine And Related Nausea/vomiting codeine Family History Problem Relation Age of Onset Cancer Mother lymphoma age 58 Diabetes Mother Cancer Father colon cancer age 73 Other (Other) Sister older age. had recurrent aspiration Other ( ' alive doing well [employer]) Brother lives local ALS Brother Brain Aneurysm Brother much later 89 Diabetes Brother complications. Cancer Brother Other (hypothyroid) Daughter Other (hypothroid) Son Other (hypothyroid) Son Family Status Relation Status Mo at age 59 Fa at age 78 Sis Bro Alive Bro Bro Bro Bro Ajay Alive Son Alive Son Alive Social History Tobacco Use Smoking status: Former Packs/day: 0.50 Years: 20.00 Additional pack years: 0.00 Total pack years: 10.00 Types: Cigarettes Quit date: 07/26/1988 Years since quittin.8 Passive exposure: Past Smokeless tobacco: Never Substance Use Topics Alcohol use: Yes Alcohol/week: 1.0 standard drink of alcohol Types: 1 5 oz of wine per week Comment: 1-3 per week Vaping/E-Cigarette Use Vaping/E-Cigarette Use Never User Vaping/E-Cigarette Substances Vaping/E-Cigarette Devices REVIEW OF SYSTEMS: Review of Systems Constitutional: Negative for chills, fatigue, fever and unexpected weight change. Respiratory: Negative for cough, chest tightness, shortness of breath and wheezing. Cardiovascular: Negative for chest pain, palpitations and leg swelling. Gastrointestinal: Negative for abdominal pain, constipation, diarrhea, nausea and vomiting. Musculoskeletal: Positive for arthralgias and back pain. Negative for gait problem and joint swelling. Skin: Negative for color change, pallor and rash. OBJECTIVE: BP 138/80 (BP Site: Left Arm, BP Position: Sitting, BP Cuff Size: Regular) | Pulse 59 | Temp 36.6 C (97.9 F) | Resp 13 | Ht 1.524 m (5') | Wt 63 kg (139 lb) | SpO2 94% | BMI 27.15 kg/m | BSA 1.63 m PHYSICAL EXAM: Physical Exam Constitutional: General: She is not in acute distress. Appearance: She is well-developed. Cardiovascular: Rate and Rhythm: Normal rate and regular rhythm. Heart sounds: Normal heart sounds. No murmur heard. No friction rub. No gallop. Pulmonary: Effort: Pulmonary effort is normal. No respiratory distress. Breath sounds: Normal breath sounds. No wheezing or rales. Abdominal: General: Bowel sounds are normal. There is no distension. Palpations: Abdomen is soft. Tenderness: There is no abdominal tenderness. There is no guarding. Musculoskeletal: General: No tenderness or deformity. Normal range of motion. Skin: General: Skin is warm and dry. Coloration: Skin is not pale. Findings: No erythema or rash. Neurological: Mental Status: She is alert and oriented to person, place, and time. ASSESSMENT/PLAN: (I10) Essential hypertension with goal blood pressure less than 140/90 (primary encounter diagnosis) Plan: BP ok. She will monitor. No change to medication now. (M15.9) Generalized osteoarthritis Plan: pt will trial tylenol. Can use up to 3000mg a day. Can use voltaren gel as well. Follow-up: after return from [facility] Total time today including reviewing chart before the visit, pertinent labs, imaging reports, face to face time, and documentation time was 31 minutes. Julia Pierce DO documented in this encounter Plan of Treatment Upcoming Encounters Date Type Department Care Team (Late st Contact Info) Description 06/25/2023 10:00 AM EST Nurse Only Ancillary [address] [facility] [address] [place] [address] College, Nurse Annual Wellness Visit [address] [address] 11/18/2023 11:00 AM EDT Office Visit Family Practice [address] [facility] [address] [place] [address] Julia Pierce DO [address] [place] [address] 03/16/2024 10:45 AM EDT Office Visit Dermatology [facility] [address] [place] [address] Brandt Stevens MD [address] [place] [address] Health Maintenance Due Date Last Done Comments [...] as of this encounter Visit Diagnoses Diagnosis Essential hypertension with goal blood pressure less than 140/90- Primary Generalized osteoarthritis Generalized osteoarthrosis, unspecified site documented in this encounter Care Teams Pets Salesperson Relationship Specialty Start Date End Date Julia Pierce DO [address] [place] [address] PCP - General Family Medicine 12/30/22 documented as of this encounter"
--- OUTSIDE RECORDS SUMMARY | 2023-07-24 10:29 | External Medical Summary | Summary of Care ---
Author Name Unknown Organization [facility] Address [address] [place] [address] Phone [phone] Care Team Providers Care Barrel Cleaner Name Role Phone Kari Juliakodak Linton DO Primary Care Provider [phone] Reason for Visit * Reason Comments Suture Removal Frontal scalp suture removal. Encounter Details Date Type Department Care Team Description 04/14/2023 Office Visit [facility] Surgery [facility] [address] [place] [address] Shaila Baez MD [address] [place] [address] Encounter for removal of sutures* Allergies Active Allergy Reactions Severity Noted Date Comments Morphine And Related Nausea/vomiting 07/10/1999 codeine documented as of this encounter (statuses as of 04/14/2023) Medications Medication Sig Dispensed Refills Start Date [...] as of this encounter (statuses as of 04/14/2023) Active Problems Problem Noted Date Onychomycosis 12/19/2021 [...] CT abnormal 2013 echo WNL 2015 DEXA [facility] WNL 12/03 Colon [facility] Dr Abdi--Quiescent IBD, UC? 01/03 stress test [facility] WNL Reflux esophagitis Essential hypertension with goal blood p ressure less than 140/90 Myalgia and myositis Lumbar spinal stenosis Cyst of kidney, acquired Overview: Right Renal Cyst S/P lumbar fusion documented as of this encounter (statuses as of 04/14/2023) Resolved Problems Problem Noted Date Resolved Date Left groin pain 12/19/2021 11/10/2022 Microhematuria 02/12/2020 11/10/2022 Overview: 02/[address] Refer Uro. JOINT PAIN-SHLDER 12/24/1998 01/09/2020 URIN TRACT INFECTION NOS 020 documented as of this encounter (statuses as of 04/14/2023) Immunizations Name Administration Dates Next Due COVID-19 mRNA, LNP-s, No Pre serve, 2-Dose Series ([employer]) 11/27/2021,04/22/2021,10/08/2020,09/17 Covid-19, Mrna, Lnp-s, Pf, B ivalent, [...] Progress Notes * Shaila Baez MD - 04/14/2023 11:02 AM EDT Patient returns 2 weeks after Mohs for recheck on healing. Denies drainage, pain, infection, difficulty healing. Otherwise is well. Exam: Limited examination preformed today to forehead. Wound healing well. Plan: Vicryl suture removed Continue with wound care until healed Marcos Baez MD documented in this encounter Nursing Notes * Maris Hernandez LPN - 04/14/2023 10:58 AM EDT Chief Complaint Patient presents with Suture Removal Frontal scalp suture removal. documented in this encounter Plan of Treatment Upcoming Encounters Date Type Specialty Care Team Description 06/02/2023 Office Visit Family Medicine Julia Pierce, DO [address] [place] [address] 06/25/2023 Nurse Only Ancillary [place], Nurse Annual Wellness Visit [address] [facility] [address] [place] [address] 03/16/2024 Office Visit Dermatology Brandt Stevens MD [address] [place] [address] Health Maintenance Due Date Last Done Comments Influenza Vaccine (FLU shot) (#1) 2023 03/31/2022, 04/07/2021, 03/27/2020, Additional history exists GFR 12/31/2023 12/30/2022, 11/23, 03/02/2022, Additional history exists TSH 02/26/2024 02/25/2023, 0601/2023, 12/02/2022, Additional history exists Depression Screening 03/02/2024 [...] as of this encounter Visit Diagnoses Diagnosis Encounter for removal of sutures- Primary documented in this encounter Care Teams Barrel Cleaner Relationship Specialty Start Date End Date Julia Pierce, [address] [place] [address] PCP - General Family Medicine 12/30/22 documented as of this encounter
--- OUTSIDE RECORDS SUMMARY | 2023-07-24 10:29 | External Medical Summary | Summary of Care ---
Author Name Unknown Organization [facility] Address [address] [place] [address] Phone [phone] Care Team Providers Care Metal Sprayer Machined Parts Name Role Phone Julia Pierce DO Primary Care Provider [phone] Encounter Details Date Type Department Care Team Description 04/14/2023 Immunization Ancillary 65 [facility] [address] [place] [address] [place] [address] [place] [address] Arrived Allergies Active Allergy Reactions Severity Noted Date [...] for microhematuria/bladder CT abnormal 2013 echo WNL 2014 DEXA [facility] WNL [...] mRNA, LNP-s, No Pre serve, 2-Dose Series ([employer]) 11/27/2021,04/22/2021,10/08/2020,09/17 Covid-19, Mrna, Lnp-s, Pf, B ivalent, 30 Mcg, IM, 12 yrs and above ([employer]) 12/02/2022,04/07/2022 Pneumococcal Conjugate Vacc, 13 Valent (Prevnar) [...] on file documented as of this encounter Plan of Treatment Upcoming Encounters Date Type Specialty Care Team Description 06/02/2023 Office Visit Family Medicine Julia Pierce, DO [address] [place] [address] 06/25/2023 Nurse Only Ancillary College, Nurse Annual Wellness Visit [address] [facility] [address] [facility] [address] 03/16/2024 Office Visit Dermatology Brandt Stevens MD [address] [place] [address] Health Maintenance Due Date Last Done Comments Influenza Vaccine (FLU shot) (#1) 2023 04/14/2023, 03/31/2022, 04/07/2021, Additional history exists GFR 12/31/2023 12/30/2022, 11/23, [...] filedocumented as of this encounter Care Teams Metal Sprayer Machined Parts Relationship Specialty Start Date End Date Julia Pierce DO [address] [facility] [place] [address] PCP - General Family Medicine 12/30/22 documented as of this encounter
--- OUTSIDE RECORDS SUMMARY | 2023-07-24 10:29 | External Medical Summary | Summary of Care ---
Author Name Unknown Organization [facility] Address [address] [place] [address] Phone [phone] Care Team Providers Care Business Process Associate Name Role Phone Julia Pierce DO Primary Care Provider [phone] Encounter Details Date Type Department Care Team Description 05/13/2023 Immunization Ancillary 65 [facility] [address] [place] [address] [place], Covid19 Vaccine [address] [address] Arrived Allergies Active Allergy Reactions Severity Noted Date Comments Morphine And Related Nausea/vomiting 07/10/1999 codeine documented as of this encounter (statuses as of 05/13/2023) Medications Medication Sig Dispensed Refills Start Date [...] as of this encounter (statuses as of 05/13/2023) Active Problems Problem Noted Date Onychomycosis 12/19/2021 [...] CT abnormal 2013 echo WNL 2015 DEXA [facility] WNL 12/03 [address] [facility] Dr Abdi--Quiescent IBD, UC? 01/03 stress test [facility] WNL Reflux esophagitis Essential hypertension with goal blood p ressure less than 140/90 Myalgia and myositis Lumbar spinal stenosis Cyst of kidney, acquired Overview: Right Renal Cyst S/P lumbar fusion documented as of this encounter (statuses as of 05/13/2023) Resolved Problems Problem Noted Date Resolved Date Left groin pain 12/19/2021 11/10/2022 Microhematuria 02/12/2020 11/10/2022 Overview: 02/[address] Refer Uro. JOINT PAIN-SHLDER 12/24/1998 01/09/2020 URIN TRACT INFECTION NOS 020 documented as of this encounter (statuses as of 05/13/2023) Immunizations Name Administration Dates Next Due COVID-19 mRNA, LNP-s, No Pre serve, 2-Dose Series ([employer]) 11/27/2021,04/22/2021,10/08/2020,09/17 COVID-19, MRNA-LNP, 23-24, P F, 30 [...] Visit Family Medicine Julia Pierce, DO [address] [facility] [address] 06/25/2023 Nurse Only Ancillary College, Nurse Annual Wellness Visit [address] [facility] [address] [facility] [address] 03/16/2024 Office Visit Dermatology Brandt Stevens MD [address] [place] [address] Health Maintenance Due Date Last Done Comments COVID-19 Vaccine ( season) 2023 05/13/2023, 12/02/2022, 04/07/2022, Additional history exists GFR 12/31/2023 12/30/2022, 11/23, [...] filedocumented as of this encounter Care Teams Business Process Associate Relationship Specialty Start Date End Date Julia Pierce DO [address] [facility] [place] [address] PCP - General Family Medicine 12/30/22 documented as of this encounter
--- OUTSIDE RECORDS SUMMARY | 2023-07-24 10:30 | External Medical Summary | Summary of Care ---
Author Name Unknown Organization [facility] Address [address] [place] [address] Phone [phone] Care Team Providers Care Cell Tender Helper Name Role Phone Julia Ruvalcaba DO Primary Care Provider [phone] Reason for Visit * Reason Onset Date Comments Medication Refill 03/03/2023 Encounter Details Date Type Department Care Team Description 03/03/2023 Refill Family Practice [address] [place] [address] [place] [address] Julia Ruvalcaba DO [address] [place] [address] Acquired hypothyroidism Allergies Active Allergy Reactions Severity Noted Date Comments Morphine And Related Nausea/vomiting 07/10/1999 codeine documented as of this encounter (statuses as of 03/03/2023) Medications Medication Sig Dispensed Refills Start Date [...] min prior to breakfast or other meds). 30 Tablet 5 03/03/2023 Active Levothyroxine Sodium 25 MCG Oral Tablet (Levoxyl)Indication s:Acquired hypothyroidism Take 1 Tablet by mouth in the morning. (at least 30 min prior to breakfast or other meds). 30 Tablet 1 01/11/2023 3 Discontinu ed(Refill) documented as of this encounter (statuses as of 03/03/2023) Active Problems Problem Noted Date Onychomycosis 12/19/2021 [...] CT abnormal 2013 echo WNL 2015 DEXA [facility] WNL 12/03 Colon [facility] Dr Abdi--Quiescent IBD, UC? 01/03 stress test [facility] WNL Reflux esophagitis Essential hypertension with goal blood p ressure less than 140/90 Myalgia and myositis Lumbar spinal stenosis Cyst of kidney, acquired Overview: Right Renal Cyst S/P lumbar fusion documented as of this encounter (statuses as of 03/03/2023) Resolved Problems Problem Noted Date Resolved Date Left groin pain 12/19/2021 11/10/2022 Microhematuria 02/12/2020 11/10/2022 Overview: 02/[address] Refer Uro. JOINT PAIN-SHLDER 12/24/1998 01/09/2020 URIN TRACT INFECTION NOS 020 documented as of this encounter (statuses as of 03/03/2023) Immunizations Name Administration Dates Next Due COVID-19 mRNA, LNP-s, No Pre serve, 2-Dose Series ([employer]) 11/27/2021,04/22/2021,10/08/2020,09/17 Covid-19, Mrna, Lnp-s, Pf, B ivalent, [...] encounter Miscellaneous Notes * Telephone Encounter - Julia Ruvalcaba DO - 03/03/2023 11:49 AM EDTSigned Prescriptions: Disp Refills Levothyroxine Sodium 25 MCG Oral Tablet (L*30 Tab*5 Sig: Take 1 Tablet by mouth in the morning. (at least 30 min prior to breakfast or other meds). Authorizing Provider: JULIA RUVALCABA * Telephone Encounter - Katharina Lainez LPN - 03/03/2023 8:39 AM EDTPending Prescriptions: Disp Refills Levothyroxine Sodium 25 MCG Oral Tablet (L*30 Tab*5 Sig: Take 1 Tablet by mouth in the morning. (at least 30 min prior to breakfast or other meds). * Telephone Encounter - Katharina Lainez LPN - 03/03/2023 8:38 AM EDT Did you pend patient's preferred pharmacy and medication before forwarding?yes Pharmacy: [facility] [place]note 2[facility] Pending Prescriptions: Disp Refills Levothyroxine Sodium 25 MCG Oral Tablet (*30 Tab*1 Sig: Take 1 Tablet by mouth in the morning. (at least 30 min prior to breakfast or other meds). Last Visit: 03/02/2023 (in office), Visit date not found (telemedicine) Next Visit: 06/02/2023 If no future appointments scheduled, and last appointment is greater than a year ago, please schedule patient for a follow-up appointment Last date the medication was ordered: 01/11/2023 Is this request for a controlled substance?No [...] 09:34 PM * Telephone Encounter - Linda Parry, ROMEL - 03/03/2023 8:33 AM EDT Pt called in requesting refill, stating this is the second time they went to the pharmacy to leaf size picker and it was not there. States they drive [address]. Advised pt to reach out to our mail order pharmacy as they may be a better option. Pt wants to lookinto the mail order but asking this refill be done for 90 days to [facility]. Pending Prescriptions: Disp Refills Levothyroxine Sodium 25 MCG Oral Tablet (*30 Tab*1 Sig: Take 1 Tablet by mouth in the morning. (at least 30 min prior to breakfast or other meds). Last Visit: 03/02/2023 (in office), Visit date not found (telemedicine) Next Visit: 06/02/2023 Last date the medication was ordered: 01/11/23 Patient Active Problem List Diagnosis Code Reflux esophagitis K21.00 Essential hypertension with goal blood pressure less than 140/90 I10 Myalgia and myositis [id number] Lumbar spinal stenosis M48.061 Cyst of kidney, [...] - [facility] 6.1 (H) 04/19/2000 09:34 PM documented in this encounter Plan of Treatment Upcoming Encounters Date Type Specialty Care Team Description 03/08/2023 Office Visit Dermatology Brandt Stevens MD [address] [place] [address] 06/02/2023 Office Visit Family Medicine Julia Ruvalcaba, DO [address] [place] [address] 06/25/2023 Nurse Only Ancillary College, Nurse Annual Wellness Visit [address] [facility] [address] [place] [address] Health Maintenance Due Date Last Done Comments Influenza Vaccine (FLU shot) (#1) 2023 03/31/2022, 04/07/2021, 03/27/2020, Additional history exists GFR 12/31/2023 12/30/2022, 11/23, 03/02/2022, Additional history exists TSH 02/26/2024 02/25/2023, 01/2023, 12/02/2022, Additional history exists Depression Screening, Annual for Pts 12 and Over 03/02/2024 03/02/2023 Albumin/Creatinine Ratio 12/02/2025 12/02/2022, 12/24 [...] Visit Diagnoses Diagnosis Acquired hypothyroidism Unspecified hypothyroidism documented in this encounter Care Teams Cell Tender Helper Relationship Specialty Start Date End Date Julia Ruvalcaba, [address] [place] [address] PCP - General Family Medicine 12/30/22 documented as of this encounter
--- OUTSIDE RECORDS SUMMARY | 2023-07-24 10:30 | External Medical Summary ---
Author Name Unknown Address Unknown Organization K01:[place] [place] [address] [place] [address] Laboratory Report Ordering Provider Test Date Status JORDON VORA 02/25/2023 12:33:31 Final Observation Date Value Abnormality Reference (Units ) Status TSH 02/25/2023 12:33:31 4.01 0.27-4.20 (uIU/mL) Final Performing Location [facility] [place] [address] [place] [id number]
--- OUTSIDE RECORDS SUMMARY | 2023-07-24 10:30 | External Medical Summary | Summary of Care ---
Author Name Unknown Organization [facility] Address [address] [place] [facility] [place] [address] Phone [phone] Care Team Providers Care Stacker Tender Name Role Phone Julia Pierce DO Primary Care Provider [phone] Reason for Visit * Reason Onset Date Comments Test Results Biopsy 03/10/2023 Encounter Details Date Type Department Care Team Description 03/10/2023 Telephone Dermatology [facility] [place] [address] [place] [address] Brandt Stevens MD [address] [place] [address] Test Results Biopsy Allergies Active Allergy Reactions Severity Noted Date Comments Morphine And Related Nausea/vomiting 07/10/1999 codeine documented as of this encounter (statuses as of 03/10/2023) Medications Medication Sig Dispensed Refills Start Date [...] as of this encounter (statuses as of 03/10/2023) Active Problems Problem Noted Date Onychomycosis 12/19/2021 [...] CT abnormal 2013 echo WNL [address] [facility] WNL 12/[address] [facility] Dr Abdi--Quiescent IBD, UC? 01/03 stress test [facility] WNL Reflux esophagitis Essential hypertension with goal blood p ressure less than 140/90 Myalgia and myositis Lumbar spinal stenosis Cyst of kidney, acquired Overview: Right Renal Cyst S/P lumbar fusion documented as of this encounter (statuses as of 03/10/2023) Resolved Problems Problem Noted Date Resolved Date Left groin pain 12/19/2021 11/10/2022 Microhematuria 02/12/2020 11/10/2022 Overview: 02/[address] Refer Uro. JOINT PAIN-SHLDER 12/24/1998 01/09/2020 URIN TRACT INFECTION NOS 020 documented as of this encounter (statuses as of 03/10/2023) Immunizations Name Administration Dates Next Due COVID-19 mRNA, LNP-s, No Pre serve, 2-Dose Series ([employer]) 11/27/2021,04/22/2021,10/08/2020,09/17 Covid-19, Mrna, Lnp-s, Pf, B ivalent, [...] encounter Miscellaneous Notes * Telephone Encounter - Brandt Stevens MD - 03/10/2023 9:50 AM EDT Spoke with patient, see result note * Telephone Encounter - Anabel Najera LPN - 03/10/2023 9:23 AM EDT Patient returned Dr. Stevens's call . She stated provider called her yesterday concerning biopsy results. I advised patient he is not in office today. May call her back at [phone]. documented in this encounter Plan of Treatment Upcoming Encounters Date Type Specialty Care Team Description 06/02/2023 Office Visit Family Medicine Julia Pierce, DO [address] [place] [address] 06/25/2023 Nurse Only [employer], Nurse Annual Wellness Visit [address] [place] [address] 03/16/2024 Office Visit Dermatology Brandt Stevens MD [address] [place] [address] Health Maintenance Due Date Last Done Comments [...] filedocumented as of this encounter Care Teams Stacker Tender Relationship Specialty Start Date End Date Julia Pierce, [address] [place] [address] PCP - General Family Medicine 12/30/22 documented as of this encounter
--- OUTSIDE RECORDS SUMMARY | 2023-07-24 10:30 | External Medical Summary | Summary of Care ---
Author Name Unknown Organization [facility] Address [address] [place] [address] Phone [phone] Care Team Providers Care Senior Lead Project Manager Name Role Phone Julia Pierce DO Primary Care Provider Reason for Visit * Reason Comments Acute Encounter Details Date Type Department Care Team Description 01/29/2023 Office Visit Family Practice [address] [place] [address] [place] [address] Julia Pierce DO [address] [place] [address] Bilateral hand swelling* Allergies Active Allergy Reactions Severity Noted Date Comments Morphine And Related Nausea/vomiting 07/10/1999 codeine documented as of this encounter (statuses as of 02/02/2023) Medications Medication Sig Dispensed Refills Start Date [...] or other meds). 30 Tablet 1 01/11/2023 Active documented as of this encounter (statuses as of 02/02/2023) Active Problems Problem Noted Date Onychomycosis 12/19/2021 [...] CT abnormal 2013 echo WNL 2015 DEXA [facility] WNL 12/03 Colon [facility] Dr Abdi--Quiescent IBD, UC? 01/03 stress test [facility] WNL Reflux esophagitis Essential hypertension with goal blood p ressure less than 140/90 Myalgia and myositis Lumbar spinal stenosis Cyst of kidney, acquired Overview: Right Renal Cyst S/P lumbar fusion documented as of this encounter (statuses as of 02/02/2023) Resolved Problems Problem Noted Date Resolved Date Left groin pain 12/19/2021 11/10/2022 Microhematuria 02/12/2020 11/10/2022 Overview: 02/[address] Refer Uro. JOINT PAIN-SHLDER 12/24/1998 01/09/2020 URIN TRACT INFECTION NOS 020 documented as of this encounter (statuses as of 02/02/2023) Immunizations Name Administration Dates Next Due COVID-19 mRNA, LNP-s, No Pre serve, 2-Dose Series ([employer]) 11/27/2021,04/22/2021,10/08/2020,09/17 Covid-19, Mrna, Lnp-s, Pf, B ivalent, [...] got money to buy more. Never true 01/29/2023 Within the past 12 months, t he food you bought just didn't last and you didn't have money to get more. Never true 01/29/2023 Sex Assigned at Date Recorded Female 01/14/2022 11:23 AM EDT Job Start Date Occupation Industry Not on file Not on file Not on file documented as of this encounter Last Filed Vital Signs Vital Sign Reading Time Taken Comments Blood Pressure 136/84 01/29/2023 8:50 AM EDT Pulse 65 01/29/2023 8:50 AM EDT Temperature 36.4 C (97.6 F) 01/29/2023 8:50 AM ED T Respiratory Rate - - Oxygen Saturation 94% 01/29/2023 8:50 AM EDT Inhaled Oxygen Concentration - - Weight 62.9 kg (138 lb 11.2 oz) 01/29/2023 8:50 AM EDT Height - - Body Mass Index 28.01 01/11/2023 2:45 PM EDT documented in this encounter Progress Notes * Julia Pierce, DO - 01/29/2023 9:06 AM EDT SUBJECTIVE: Chief Complaint Patient presents with Acute HPI: Nicholas Clemens is a 82 year old female who presents today with complaints of continued hand pain. Unfortunately, pt will have oral surgery within the next week and cannot take prednisone or antiinflammatories. She is using tylenol if needed. Pt concerned with getting anesthesia for surgery as it often makes her sick. Work-up otherwise negative. PHM: Patient Active Problem List Diagnosis Code Reflux esophagitis K21.00 Essential hypertension with goal blood pressure less than 140/90 I10 Myalgia and myositis [id number] Lumbar spinal stenosis M48.061 Cyst of kidney, [...] 1 tablet by mouth once daily 90 Tablet1 Naproxen Sodium 220 MG Oral Tablet (Aleve) Take 1 Tablet by mouth 2 times a day as needed for Pain. Levothyroxine Sodium 25 MCG Oral Tablet (Levoxyl) Take 1 Tablet by mouth in the morning. (at least 30 min prior to breakfast or other meds). 30 Tablet 1 No current facility-administered medications for [...] ANESTH, LUMBAR SPINE/CORD SURGERY 2012 Dr Aj [facility] L2-3 hemilamincotomies. BUNION SURGERY, SIMPLE REMOVAL Bunion Correction,Simple CATARACT SURGERY,COMPLEX Right 09/10/2020 Dr Ulises PAY[place], 1ST STAGE; FACE, HANDS, FEET, NERVE BCC on nose. IN MOHS MICROGRAPHIC H/N/H/F/G 1ST STAGE 5 BLOCKS Left 07/02/2021 MOHS repair left eye- REMOVAL OF APPENDIX age 21 Appendectomy REMOVAL OF OVARY(S) Oopherectomy,Uni SPINAL FUSION, LUMBAR, COMBINED 04/[address] [facility] L5-Sacral fusion. TOTAL HYSTERECTOMY age 44 REE (Total Abdominal Hysterectomy) for fibroids Review of patient's allergies indicates: Allergen Reactions Morphine And Related Nausea/vomiting codeine Family History Problem Relation Age of Onset Cancer Mother lymphoma age 58 Diabetes Mother Cancer Father colon cancer age 73 Other (Other) Sister older age. had recurrent aspiration Other (89 '22 alive doing well [employer]) Brother lives local ALS Brother Brain Aneurysm Brother much later 89 Diabetes Brother complications. Cancer Brother Other (hypothyroid) Daughter Other (hypothroid) Son Other (hypothyroid) Son Family Status Relation Status Mo at age 59 Fa at age 78 Sis Bro Alive Bro Bro Bro Bro Ajay Alive Son Alive Son Alive Social History Tobacco Use Smoking status: Former Packs/day: 0.50 Years: 20.00 Pack years: 10.00 Types: Cigarettes Quit date: 07/26/1988 Years since quittin.5 Passive exposure: Past Smokeless tobacco: Never Substance Use Topics Alcohol use: Yes Alcohol/week: 1.0 standard drink Types: 1 5 oz of wine per [...] and vomiting. Musculoskeletal: Positive for arthralgias and joint swelling. Negative for gait problem. Skin: Negative for color change, pallor and rash. OBJECTIVE: BP 136/84 (BP Site: Left Arm, BP Position: Sitting, BP Cuff Size: Regular) | Pulse 65 | Temp 36.4 C (97.6 F) | Wt 62.9 kg (138 lb 11.2 oz) | SpO2 94% | BMI 28.01 kg/m | BSA 1.62 m PHYSICAL EXAM: Physical Exam Constitutional: General: [...] tenderness. There is no guarding. Musculoskeletal: General: Swelling (of hand joints) present. No tenderness or deformity. Normal range of motion. Skin: General: Skin is warm and dry. Coloration: Skin is not pale. Findings: No erythema or rash. Neurological: Mental Status: She is alert and oriented to person, place, and time. ASSESSMENT/PLAN: (M79.89) Bilateral hand swelling (primary encounter diagnosis) Plan: Indicated on form for oral surgeon to advise when we can trial prednisone or course of anti-inflammatory. Pt can use topical in the meantime. Tylenol if needed. Follow-up: after procedure Total time today including reviewing chart before the visit, pertinent labs, imaging reports, face to face time, and documentation time was 33 minutes. Julia Pierce DO documented in this encounter Nursing Notes * Melinda Estevez RN - 01/29/2023 8:48 AM EDT Acute Having swelling in hands, wrists and ankles-gets worse in evening-states gets warm/hot at times. Difficult using hands. Has shooting pains. BP up and down documented in this encounter Plan of Treatment Upcoming Encounters Date Type Specialty Care Team Description 03/02/2023 Office Visit Family Medicine Julia Pierce DO [address] [place] [address] 04/23/2023 Nurse Only Ancillary Nurse Yoni Annual [facility]ing [address] [place] [address] Health Maintenance Due Date Last Done Comments Influenza Vaccine (FLU shot) (#1) 2023 03/31/2022, 04/07/2021, 03/27/2020, Additional history exists GFR 12/31/2023 12/30/2022, 11/23, 03/02/2022, Additional history exists TSH 12/31/2023 12/30/2022, 11/23, 03/02/2022 Depression Screening, Annual for Pts 12 and Over 01/30/2024 01/29/2023 Albumin/Creatinine Ratio 12/02/2025 12/02/2022, 12/24 DXA Scan [...] as of this encounter Visit Diagnoses Diagnosis Bilateral hand swelling- Primary documented in this encounter Care Teams Senior Lead Project Manager Relationship Specialty Start Date End Date Julia Pierce DO [address] [place] [address] PCP - General Family Medicine 12/30/22 documented as of this encounter"
--- OUTSIDE RECORDS SUMMARY | 2023-07-24 10:30 | External Medical Summary | Summary of Care ---
Author Name Unknown Organization [facility] Address [address] [place] [address] Phone [phone] Care Team Providers Care End Matcher Name Role Phone Julia Pierce DO Primary Care Provider [phone] Reason for Visit * Reason Onset Date Comments Order Request 02/25/2023 Encounter Details Date Type Department Care Team Description 02/25/2023 Telephone Family Practice [address] [place] [address] [place] [address] Julia Pierce DO [address] [place] [address] Order Request (/) Allergies Active Allergy Reactions Severity Noted Date Comments Morphine And Related Nausea/vomiting 07/10/1999 codeine documented as of this encounter (statuses as of 03/02/2023) Medications Medication Sig Dispensed Refills Start Date [...] as of this encounter (statuses as of 03/02/2023) Active Problems Problem Noted Date Onychomycosis 12/19/2021 [...] CT abnormal 2013 echo WNL [address] [facility] WNL 12/[address] [facility] [address] Abdi--Quiescent IBD, UC? 01/03 stress test [facility] WNL Reflux esophagitis Essential hypertension with goal blood p ressure less than 140/90 Myalgia and myositis Lumbar spinal stenosis Cyst of kidney, acquired Overview: Right Renal Cyst S/P lumbar fusion documented as of this encounter (statuses as of 03/02/2023) Resolved Problems Problem Noted Date Resolved Date Left groin pain 12/19/2021 11/10/2022 Microhematuria 02/12/2020 11/10/2022 Overview: 02/[address] Refer Uro. JOINT PAIN-SHLDER 12/24/1998 01/09/2020 URIN TRACT INFECTION NOS 020 documented as of this encounter (statuses as of 03/02/2023) Immunizations Name Administration Dates Next Due COVID-19 mRNA, LNP-s, No Pre serve, 2-Dose Series ([employer]) 11/27/2021,04/22/2021,10/08/2020,09/17 Covid-19, Mrna, Lnp-s, Pf, B ivalent, [...] encounter Miscellaneous Notes * Telephone Encounter - ROMEL Hurd - 03/02/2023 10:00 AM EDT Pt calling to advise she will keep this appointment and be here at 3 pm today. * Telephone Encounter - Katharina Lainez LPN - 03/02/2023 9:17 AM EDT Pt had TSH labs done and does not need pre-op exam that is scheduled today - she already had the surgery. She would like to know if she still needs to come in today or if you can give her the results without a visit. She is scheduled for 3:00 today. Please advise and I will call her. Thanks! * Telephone Encounter - ROMEL Hurd - 03/01/2023 5:06 PM EDT Pt states she has not heard back regarding recent thyroid labs and not sure if she should be changing her meds Pt was scheduled for tomorrow as a pre op but that is no longer needed. She is asking if you needed to still see her and if you could advise her results. * Telephone Encounter - Julia Pierce DO - 02/25/2023 12:06 PM EDT Pt will need repeat TSH today. documented in this encounter Plan of Treatment Upcoming Encounters Date Type Specialty Care Team Description 03/02/2023 Office Visit Family Medicine [facility] DO [address] [place] [facility] [address] 04/23/2023 Nurse Only Ancillary Nurse Y[facility] [address] [facility] [address] Health Maintenance Due Date Last Done Comments Influenza Vaccine (FLU shot) (#1) 2023 03/31/2022, 04/07/2021, 03/27/2020, Additional history exists GFR 12/31/2023 12/30/2022, 11/23, 03/02/2022, Additional history exists Depression Screening, Annual for Pts 12 and Over 01/30/2024 01/29/2023 TSH 02/26/2024 02/25/2023, 01/2023, 12/02/2022, Additional history exists Albumin/Creatinine Ratio 12/02/2025 12/02/2022, 12/24 DXA Scan [...] Not on filedocumented as of this encounter Results * TSH WITH FREE T4 IF INDICATED (02/25/2023 12:33 PM EDT) TSH 4.01 0.27 - 4.20 uIU/mL 02/25/2023 11:08 PM EDT [facility] [place] Venous blood specimen / Unknown Venipuncture / Unknown 02/25/2023 12:33 PM EDT 02/25/2023 12:33 PM EDT Julia Pierce DO LAB BLOOD ORDERABLES [facility] [place] [address] [place] [address] documented in this encounter Visit Diagnoses Diagnosis Acquired hypothyroidism- Primary Unspecified hypothyroidism documented in this encounter Care Teams End Matcher Relationship Specialty Start Date End Date Julia Pierce DO [address] [place] [address] PCP - General Family Medicine 12/30/22 documented as of this encounter
--- OUTSIDE RECORDS SUMMARY | 2023-07-24 10:30 | External Medical Summary | Summary of Care ---
Author Name Unknown Organization [facility] Address [address] [place] [address] Phone [phone] Care Team Providers Care Osd Clerk Name Role Phone KariCynthiakodak Linton DO Primary Care Provider [phone] Reason for Referral * Evaluate & Treat - Unlimited Visits (Within 30 days (routine)) - Authorized Specialty Diagnoses / Procedures Referred By Contac t Referred To Contact Dermatology Diagnoses Basal cell carcinoma (BCC) of forehead Brandt Stevens MD [address] [place] [address] Referral ID Status Reason Start Date Expiration Date Visits Requested Visits Authorized [id number] Authorized Specialty Services Required 03/10/2023 1 1 Question Answer Referral Priority Within 30 days (routine) Are you referring the patient for Mohs Surgery and have a current positive skin cancer biopsy result? Yes Type of Procedure MOHS Surgery Comments A. Skin, right frontal hairline, shave: Basal cell carcinoma Encounter Details Date Type Department Care Team Description 03/10/2023 Telephone Dermatology [facility] [place] [address] [place] [address] Brandt Stevens MD [address] [place] [address] Allergies Active Allergy Reactions Severity Noted Date [...] CT abnormal 2013 echo WNL 2015 DEXA [facility] WNL 12/03 Colon [facility] Dr Abdi--Quiescent IBD, UC? [...] as of this encounter Miscellaneous Notes * Addendum Note - Brandt Stevens MD - 03/10/2023 9:52 AM EDTAddended by: BRANDT STEVENS on: 03/10/2023 09:52 AM Modules accepted: Orders * Telephone Encounter - Brandt Stevens MD - 03/10/2023 9:51 AM EDT Please schedule for Mohs: Right frontal hairline Basal cell carcinoma documented in this encounter Plan of Treatment Upcoming Encounters Date Type Specialty Care Team Description 06/02/2023 Office Visit Family Medicine Julia Pierce DO [address] [place] [address] 06/25/2023 Nurse Only [facility], Nurse Annual Wellness Visit [address] [facility] [address] [place] [address] 03/16/2024 Office Visit Dermatology Brandt Stevens MD [address] [place] [address] Scheduled Referrals Name Type Priority Associated Diagnoses Orde r Schedule MOHS SURGERY REFERRAL OP Referral Within 30 days (routine) Basal cell carcinoma (BCC) of forehead Ordered: 03/10/2023 Health Maintenance Due Date Last Done Comments Influenza Vaccine (FLU shot) (#1) 2023 03/31/2022, 04/07/2021, 03/27/2020, Additional history exists GFR 12/31/2023 12/30/2022, 11/23, 03/02/2022, Additional history exists TSH 02/26/2024 02/25/2023, 0601/2023, 12/02/2022, Additional history exists Depression Screening, Annual [...] Diagnoses Diagnosis Basal cell carcinoma (BCC) of forehead- Primary documented in this encounter Care Teams Osd Clerk Relationship Specialty Start Date End Date Julia Pierce, DO [address] [place] [address] PCP - General Family Medicine 12/30/22 documented as of this encounter
--- OUTSIDE RECORDS SUMMARY | 2023-07-24 10:30 | External Medical Summary | Summary of Care ---
Author Name Unknown Organization [facility] Address [address] [place] [address] Phone [phone] Care Team Providers Care Insurance Analyst Name Role Phone Julia Pierce DO Primary Care Provider Reason for Visit * Reason Onset Date Comments Order Request 02/25/2023 Encounter Details Date Type Department Care Team Description 02/25/2023 Telephone Family Practice [address] [place] [address] [place] [address] Julia Pierce DO [address] [place] [address] Order Request (/) Allergies Active Allergy Reactions Severity Noted Date Comments Morphine And Related Nausea/vomiting 07/10/1999 codeine documented as of this encounter (statuses as of 03/01/2023) Medications Medication Sig Dispensed Refills Start Date [...] as of this encounter (statuses as of 03/01/2023) Active Problems Problem Noted Date Onychomycosis 12/19/2021 [...] CT abnormal 2013 echo WNL 2015 DEXA [facility] WNL 12/03 Colon [facility] Dr Abdi--Quiescent IBD, UC? 01/03 stress test [facility] WNL Reflux esophagitis Essential hypertension with goal blood p ressure less than 140/90 Myalgia and myositis Lumbar spinal stenosis Cyst of kidney, acquired Overview: Right Renal Cyst S/P lumbar fusion documented as of this encounter (statuses as of 03/01/2023) Resolved Problems Problem Noted Date Resolved Date Left groin pain 12/19/2021 11/10/2022 Microhematuria 02/12/2020 11/10/2022 Overview: 02/[address] Refer Uro. JOINT PAIN-SHLDER 12/24/1998 01/09/2020 URIN TRACT INFECTION NOS 020 documented as of this encounter (statuses as of 03/01/2023) Immunizations Name Administration Dates Next Due COVID-19 mRNA, LNP-s, No Pre serve, 2-Dose Series ([employer]) 11/27/2021,04/22/2021,10/08/2020,09/17 Covid-19, Mrna, Lnp-s, Pf, B ivalent, [...] Visit Family Medicine Julia Pierce DO [address] [place] [address] 04/23/2023 Nurse Only Ancillary Yoni Nurse [facility] [address] [facility] [address] Health Maintenance Due Date Last Done Comments [...] 4.20 uIU/mL 02/25/2023 11:08 PM EDT LAB[facility]ATORY [facility] Blood Venous blood specimen / Unknown Venipuncture / Unknown 02/25/2023 12:33 PM EDT 02/25/2023 12:33 PM EDT Julia Pierce DO LAB BLOOD ORDERABLES LAB[facility]ATORY [facility] [address] [place] [address] documented in this encounter Visit Diagnoses Diagnosis Acquired hypothyroidism- Primary Unspecified hypothyroidism documented in this encounter Care Teams Insurance Analyst Relationship Specialty Start Date End Date Julia Pierce DO [address] [place] [address] PCP - General Family Medicine 12/30/22 documented as of this encounter
--- OUTSIDE RECORDS SUMMARY | 2023-07-24 10:30 | External Medical Summary | Summary of Care ---
Author Name Unknown Organization [facility] Address [address] [place] [address] Phone [phone] Care Team Providers Care Almond Huller Name Role Phone Julia Pierce DO Primary Care Provider [phone] Reason for Visit * Reason Onset Date Comments Appointment 03/02/2023 dermatology Encounter Details Date Type Department Care Team Description 03/02/2023 Telephone Family Practice [address] [place] [address] [place] [address] Julia Pierce DO [address] [place] [address] Appointment (dermatology) Allergies Active Allergy Reactions Severity Noted Date [...] CT abnormal 2013 echo WNL 2015 DEXA [facility] WNL 12/[address] [facility] [address] Abdi--Quiescent IBD, UC? 01/03 [...] mRNA, LNP-s, No Pre serve, 2-Dose Series ([employer]) 11/27/2021,04/22/2021,10/08/2020,09/17 Covid-19, Mrna, Lnp-s, Pf, B ivalent, [...] * Telephone Encounter - ROMEL Hurd - 03/03/2023 8:41 AM EDT Spoke to pt who is now scheduled 03.08.23 for derm. Pt aware and agreeable to this appt * Telephone Encounter - ROMEL Hurd - 03/02/2023 5:37 PM EDT Pt was scheduled for derm on 03.05.23 at [facility] w appt details. Will close once confirming patient is aware and ok with that date. documented in this encounter Plan of Treatment Upcoming Encounters Date Type Specialty Care Team Description 03/08/2023 Office Visit Dermatology Brandt Stevens MD [address] [place] [address] 06/02/2023 Office Visit Family Medicine Julia Pierce, [address] [place] [address] 06/25/2023 Nurse Only [employer]illary [employer], Nurse Annual Wellness Visit [address] [facility] [address] [place] [address] Health Maintenance Due Date Last Done Comments [...] filedocumented as of this encounter Care Teams Almond Huller Relationship Specialty Start Date End Date Julia Pierce DO [address] [place] [address] PCP - General Family Medicine 12/30/22 documented as of this encounter
--- OUTSIDE RECORDS SUMMARY | 2023-07-24 10:30 | External Medical Summary | Summary of Care ---
Author Name Unknown Organization [facility] Address [address] [place] [address] Phone [phone] Care Team Providers Care Dragsaw Operator Name Role Phone KariCynthiakodak Linton DO Primary Care Provider [phone] Reason for Referral * Evaluate & Treat - Unlimited Visits (Within 30 days (routine)) - Authorized Specialty Diagnoses / Procedures Referred By Contac t Referred To Contact Dermatology Diagnoses Basal cell carcinoma (BCC) of forehead Brandt Stevens MD [address] [place] [address] Referral ID Status Reason Start Date Expiration Date Visits Requested Visits Authorized [id number] Authorized Specialty Services Required 03/10/2023 1 1 [...] [place] [facility] [place] [address] [place] [address] Brandt Stevens MD [address] [place] [address] Allergies Active Allergy Reactions Severity Noted Date [...] abnormal 2013 echo WNL 2015 DEXA [facility] WNL 12/03 Colon [facility] Dr Abdi--Quiescent IBD, UC? 01/03 [...] Visit Family Medicine Julia Pierce DO [address] [place] [address] 06/25/2023 Nurse Only [facility], Nurse Annual Wellness Visit [facility] [address] [place] [address] 03/16/2024 Office Visit Dermatology Brandt Stevens MD [address] [place] [address] Scheduled Referrals Name Type Priority Associated Diagnoses [...] Primary documented in this encounter Care Teams Dragsaw Operator Relationship Specialty Start Date End Date Julia Pierce, DO 293 [place] [address] PCP - General Family Medicine 12/30/22 documented as of this encounter
--- OUTSIDE RECORDS SUMMARY | 2023-07-24 10:30 | External Medical Summary | Summary of Care ---
Author Name Unknown Organization [facility] Address [address] [place] [address] Phone [phone] Care Team Providers Care Robot Programmer Name Role Phone Julia Pierce DO Primary Care Provider [phone] Reason for Referral * Evaluate & Treat - Unlimited Visits (Within 3 days (urgent)) - Authorized Specialty Diagnoses / Procedures Referred By Contvaishali t Referred To Contact Dermatology Diagnoses History of basal cell carcinoma Changing skin lesion Julia Pierce DO [address] [place] [address] Referral ID Status Reason Start Date Expiration Date Visits Requested Visits Authorized [id number] Authorized Specialty Services Required 03/02/2023 999 999 Question Answer Referral Priority Within 3 days (urgent) Are you referring the patient for Mohs Surgery and have a current positive skin cancer biopsy result? No What is the reason for the patient referral? Rash/Skin Check/Eval of Lesion or Mole Reason for Visit * Reason Comments Follow Up Encounter Details Date Type Department Care Team Description 03/02/2023 Office Visit Family Practice 65 [facility] [place] [facility] [id number] Julia Pierce DO 293 [place] [address] History of basal cell carcinoma*; Changing skin lesion; Other constipation Allergies Active Allergy Reactions Severity Noted Date Comments Morphine And Related Nausea/vomiting 07/10/1999 codeine documented as of this encounter (statuses as of 03/04/2023) Medications Medication Sig Dispensed Refills Start Date [...] as of this encounter (statuses as of 03/04/2023) Active Problems Problem Noted Date Onychomycosis 12/19/2021 [...] CT abnormal 2013 echo WNL 2015 DEXA [facility] WNL 12/03 [address] [facility] [address] Abdi--Quiescent IBD, UC? 01/03 stress test [facility] WNL Reflux esophagitis Essential hypertension with goal blood p ressure less than 140/90 Myalgia and myositis Lumbar spinal stenosis Cyst of kidney, acquired Overview: Right Renal Cyst S/P lumbar fusion documented as of this encounter (statuses as of 03/04/2023) Resolved Problems Problem Noted Date Resolved Date Left groin pain 12/19/2021 11/10/2022 Microhematuria 02/12/2020 11/10/2022 Overview: 02/[address] Refer Uro. JOINT PAIN-SHLDER 12/24/1998 01/09/2020 URIN TRACT INFECTION NOS 020 documented as of this encounter (statuses as of 03/04/2023) Immunizations Name Administration Dates Next Due COVID-19 mRNA, LNP-s, No Pre serve, 2-Dose Series ([employer]) 11/27/2021,04/22/2021,10/08/2020,09/17 Covid-19, Mrna, Lnp-s, Pf, B ivalent, 30 Mcg, IM, 12 yrs and above ([employer]Sky) 12/02/2022,04/07/2022 Pneumococcal Conjugate Vacc, 13 Valent (Prevnar) [...] Sign Reading Time Taken Comments Blood Pressure 128/76 03/02/2023 3:12 PM EDT Pulse 74 03/02/2023 3:12 PM EDT Temperature 36.7 C (98 F) 03/02/2023 3:12 PM EDT Respiratory Rate - - Oxygen Saturation 96% 03/02/2023 3:12 PM EDT Inhaled Oxygen Concentration - - Weight 62.6 kg (137 lb 14.4 oz) 03/02/2023 3:12 PM EDT Height - - Body Mass Index 27.85 01/11/2023 2:45 PM EDT documented in this encounter Progress Notes * Julia Pierce, - 03/02/2023 3:40 PM EDT SUBJECTIVE: Chief Complaint Patient presents with Follow Up HPI: Nicholas Clemens is a 83 year old female who presents today for regular return. Pt has a spot on her left cheek. She notes that it won't go away. She has had BCC in the past. She noticed it about 6 months or so ago. Pt notes some occasional constipation. She is using miralax and stool softeners. This does work forher. PHM: Patient Active Problem List Diagnosis Code Reflux esophagitis K21.00 Essential hypertension with goal blood pressure less than 140/90 I10 Myalgia and myositis [id number] Lumbar spinal stenosis M48.061 Cyst of kidney, [...] ANESTH, LUMBAR SPINE/CORD SURGERY 2012 Dr Aj [facility] L2-3 hemilamincotomies. BUNION SURGERY, SIMPLE REMOVAL Bunion Correction,Simple CATARACT SURGERY,COMPLEX Right 09/10/2020 Dr Ulises [place], 1ST STAGE; FACE, HANDS, FEET, NERVE BCC on nose. MS MOHS MICROGRAPHIC H/N/H/F/G 1ST STAGE 5 BLOCKS [...] older age. had recurrent aspiration Other ( alive doing well Pict) Brother lives local ALS Brother Brain Aneurysm [...] Types: Cigarettes Quit date: 07/26/1988 Years since quittin.6 Passive exposure: Past Smokeless tobacco: Never Substance [...] pain, constipation, diarrhea, nausea and vomiting. Musculoskeletal: Negative for arthralgias, gait problem and joint swelling. Skin: Negative for color change, pallor and rash. As per HPI OBJECTIVE: BP 128/76 | Pulse 74 | Temp 36.7 C (98 F) | Wt 62.6 kg (137 lb 14.4 oz) | SpO2 96% | BMI 27.85 kg/m | BSA 1.61 m PHYSICAL EXAM: Physical Exam Constitutional: General: [...] not pale. Findings: No erythema or rash. Comments: Rough patch left cheek Neurological: Mental Status: She is alert and oriented to person, place, and time. ASSESSMENT/PLAN: (Z85.828) History of basal cell carcinoma (primary encounter diagnosis) (L98.9) Changing skin lesion Plan: DERMATOLOGY REFERRAL OP Pt will see dermatology for further evaluation. She has history of BCC and one near the area of current lesion. (K59.09) Other constipation Plan: pt will continue on current regimen. It has been working for her. Reassurance provided that this is necessary if needed to keep bowels moving. Follow-up: 3 months Total time today including reviewing chart before the visit, pertinent labs, imaging reports, face to face time, and documentation time was 33 minutes. Julia Pierce DO documented in this encounter Nursing Notes * Katharina Lainez LPN - 03/02/2023 3:01 PM EDT 1). Small spot under L eyelid - concerned about skin cancer. This has been there months. 2). Constipation 3). Difficulty moving - feels it is muscle related, not arthritis. documented in this encounter Plan of Treatment Upcoming Encounters Date Type Specialty Care Team Description 03/08/2023 Office Visit Dermatology Brandt Stevens MD [address] [place] [address] 06/02/2023 Office Visit Family Medicine Julia Pierce DO [address] [place] [address] 06/25/2023 Nurse Only [employer], Nurse Annual Wellness Visit [address] [facility] [address] [place] [address] Scheduled Referrals Name Type Priority Associated Diagnoses Orde r Schedule DERMATOLOGY REFERRAL OP Referral Within 3 days (urgent) History of basal cell carcinoma Changing skin lesion Ordered: 03/02/2023 Health Maintenance Due Date Last Done Comments [...] as of this encounter Visit Diagnoses Diagnosis History of basal cell carcinoma- Primary Personal history of other malignant neoplasm of skin Changing skin lesion Unspecified disorder of skin and subcutaneous tissue Other constipation documented in this encounter Care Teams Robot Programmer Relationship Specialty Start Date End Date Julia Pierce DO [address] [place] [address] PCP - General Family Medicine 12/30/22 documented as of this encounter"
--- OUTSIDE RECORDS SUMMARY | 2023-07-24 10:30 | External Medical Summary | Summary of Care ---
Author Name Unknown Organization [facility] Address [address] [place] [address] Phone [phone] Care Team Providers Care Automation Software Engineer Name Role Phone TutuJulia segura Shaila SANCHEZ Primary Care Provider [phone] Reason for Visit * Reason Comments Mohs Surgery * Evaluate & Treat - Unlimited Visits (Within 30 days (routine)) - Closed Specialty Diagnoses / Procedures Referred By Irma resendiz Referred To Contact Dermatology Diagnoses Basal cell carcinoma (BCC) of forehead Brandt Stevens MD [address] [place] [address] Referral ID Status Reason Start Date Expiration Date V isits Requested Visits Authorized [id number] Closed Specialty Services Required 03/10/2023 1 1 Encounter Details Date Type Department Care Team Description 03/30/2023 Office Visit MOHS Surgery [facility] [address] [place] [address] Shaila Baez MD [address] [place] [address] Basal cell carcinoma (BCC) of right forehead* Allergies Active Allergy Reactions Severity Noted Date Comments Morphine And Related Nausea/vomiting 07/10/1999 codeine documented as of this encounter (statuses as of 03/30/2023) Medications Medication Sig Dispensed Refills Start Date [...] as of this encounter (statuses as of 03/30/2023) Active Problems Problem Noted Date Onychomycosis 12/19/2021 [...] CT abnormal 2013 echo WNL 2015 DEXA [facility] WNL 12/[address] [facility] [address] Abdi--Quiescent IBD, UC? 01/03 stress test [facility] WNL Reflux esophagitis Essential hypertension with goal blood p ressure less than 140/90 Myalgia and myositis Lumbar spinal stenosis Cyst of kidney, acquired Overview: Right Renal Cyst S/P lumbar fusion documented as of this encounter (statuses as of 03/30/2023) Resolved Problems Problem Noted Date Resolved Date Left groin pain 12/19/2021 11/10/2022 Microhematuria 02/12/2020 11/10/2022 Overview: 02/[address] Refer Uro. JOINT PAIN-SHLDER 12/24/1998 01/09/2020 URIN TRACT INFECTION NOS 020 documented as of this encounter (statuses as of 03/30/2023) Immunizations Name Administration Dates Next Due COVID-19 [...] Consent signed yes documented in this encounter Plan of Treatment Upcoming Encounters Date Type Specialty Care Team Description 06/02/2023 Office Visit Family Medicine Julia Pierce, DO [address] [place] [address] 06/25/2023 Nurse Only [employer], Nurse Annual Wellness Visit [address] [facility] 293 [place] [address] 03/16/2024 Office Visit Dermatology Brandt Stevens MD [address] [place] [address] Scheduled Referrals Name Type Priority Associated Diagnoses [...] Primary documented in this encounter Care Teams Automation Software Engineer Relationship Specialty Start Date End Date Julia Pierce, [address] [place] [address] PCP - General Family Medicine 12/30/22 documented as of this encounter
--- OUTSIDE RECORDS SUMMARY | 2023-07-24 10:30 | External Medical Summary | Summary of Care ---
Author Name Unknown Organization [facility] Address [address] [place] [address] Phone [phone] Care Team Providers Care Lead Systems Engineer Name Role Phone Julia Pierce DO Primary Care Provider Reason for Visit * Reason Onset Date Comments Order Request 02/25/2023 Encounter Details Date Type Department Care Team Description 02/25/2023 Telephone Family Practice [address] [place] [address] [place] [address] Julia Pierce DO [address] [place] [address] Order Request (/) Allergies Active [...] CT abnormal 2013 echo WNL 2015 DEXA [facility] WNL 12/03 [address] [facility] Dr Abdi--Quiescent IBD, UC? 01/03 [...] mRNA, LNP-s, No Pre serve, 2-Dose Series ([employer]) 11/27/2021,04/22/2021,10/08/2020,09/17 Covid-19, Mrna, Lnp-s, Pf, B ivalent, [...] encounter Miscellaneous Notes * Telephone Encounter - Katharina Lainez LPN - 03/02/2023 10:03 AM EDT Noted. * Telephone Encounter - ROMEL Hurd - [...] Visit Family Medicine Julia Pierce DO [address] [facility] [address] 04/23/2023 Nurse Only Ancillary Nurse Yoni Annual Wellness Ning [address] [facility] [place] [address] Health Maintenance Due Date Last Done Comments [...] 4.20 uIU/mL 02/25/2023 11:08 PM EDT LAB[facility] Blood Venous blood specimen / Unknown Venipuncture / Unknown 02/25/2023 12:33 PM EDT 02/25/2023 12:33 PM EDT Julia Pierce DO LAB BLOOD ORDERABLES [facility] [address] [place] [address] documented in this encounter Visit Diagnoses Diagnosis Acquired hypothyroidism- Primary Unspecified hypothyroidism documented in this encounter Care Teams Lead Systems Engineer Relationship Specialty Start Date End Date Julia Pierce DO 293 [place] [address] PCP - General Family Medicine 12/30/22 documented as of this encounter
--- OUTSIDE RECORDS SUMMARY | 2023-07-24 10:30 | External Medical Summary | Summary of Care ---
Author Name Unknown Organization [facility] Address [address] [place] [address] Phone [phone] Care Team Providers Care Icu Rn Name Role Phone KariCynthiakodak Linton DO Primary Care Provider [phone] Reason for Referral * Evaluate & Treat - Unlimited Visits (Within 30 days (routine)) - Authorized Specialty Diagnoses / Procedures Referred By Contac t Referred To Contact Dermatology Diagnoses Basal cell carcinoma (BCC) of forehead Brandt Stevens MD [address] [place] [address] Referral ID Status Reason Start Date Expiration Date Visits Requested Visits Authorized [id number] Authorized Specialty Services Required 03/10/2023 1 1 Question Answer Referral Priority Within 30 days (routine) Are you referring the patient for Mohs Surgery and have a current positive skin cancer biopsy result? Yes Type of Procedure MOHS Surgery Comments A. Skin, right frontal hairline, shave: Basal cell carcinoma Encounter Details Date Type Department Care Team Description 03/10/2023 Telephone Dermatology [facility] [place] [address] [place] [address] Brandt Stevens MD [address] [place] [address] Allergies Active Allergy Reactions Severity Noted Date [...] CT abnormal 2013 echo WNL 2015 DEXA [facility] WNL 12/03 Colon [facility] Dr Abdi--Quiescent IBD, UC? [...] Miscellaneous Notes * Telephone Encounter - ROMEL Fowler - 03/10/2023 10:55 AM EDT Spoke to patient and scheduled for mohs with Dr Baez for 03/30 at 8;15am will mail a mohs packet. * Addendum Note - Brandt Stevens MD - 03/10/2023 9:52 AM EDTAddended by: BRANDT STEVENS on: 03/10/2023 09:52 AM Modules accepted: Orders * Telephone Encounter - Brandt Steevns MD - 03/10/2023 9:51 AM EDT Please schedule for Mohs: Right frontal hairline Basal cell carcinoma documented in this encounter Plan of Treatment Upcoming Encounters Date Type Specialty Care Team Description 03/30/2023 Office Visit Dermatology Shaila Baez MD [address] [place] [address] 06/02/2023 Office Visit Family Medicine [facility] Pierce, DO [facility] [address] 06/25/2023 Nurse Only [facility], Nurse Annual Wellness Visit [address] [facility] 293 [place] [address] 03/16/2024 Office Visit Dermatology Brandt Stevens MD [address] [place] [address] Scheduled Referrals Name Type Priority Associated Diagnoses [...] Primary documented in this encounter Care Teams Icu Rn Relationship Specialty Start Date End Date Julia Pierce, 293 [facility] [address] PCP - General Family Medicine 12/30/22 documented as of this encounter
--- OUTSIDE RECORDS SUMMARY | 2023-07-24 10:30 | External Medical Summary | Summary of Care ---
Author Name Unknown Organization [facility] Address [address] [place] [address] Phone [phone] Care Team Providers Care Liquor Clerk Name Role Phone Julia Pierce DO Primary Care Provider Reason for Visit * Reason Onset Date Comments Order Request 02/25/2023 Encounter Details Date Type Department Care Team Description 02/25/2023 Telephone Family Practice [address] [place] [address] [place] [address] Julia Pierce DO [address] [place] [address] Order Request (/) Allergies Active [...] mRNA, LNP-s, No Pre serve, 2-Dose Series ([email or web address]) 11/27/2021,04/22/2021,10/08/2020,09/17 Covid-19, Mrna, Lnp-s, Pf, B ivalent, [...] Visit Family Medicine Julia Pierce DO [address] [facility] [address] 04/23/2023 Nurse Only Ancillary Yoni Nurse Annual Wellness Ning [address] [facility] [address] Health Maintenance Due Date Last Done Comments [...] 4.20 uIU/mL 02/25/2023 11:08 PM EDT LABORATORY [facility] Blood Venous blood specimen / Unknown Venipuncture / Unknown 02/25/2023 12:33 PM EDT 02/25/2023 12:33 PM EDT Julia Pierce DO LAB BLOOD ORDERABLES LABORATORY [facility] [address] [place] [address] documented in this encounter Visit Diagnoses Diagnosis Acquired hypothyroidism- Primary Unspecified hypothyroidism documented in this encounter Care Teams Liquor Clerk Relationship Specialty Start Date End Date Julia Pierce DO [address] [place] [address] PCP - General Family Medicine 12/30/22 documented as of this encounter
--- OUTSIDE RECORDS SUMMARY | 2023-07-24 10:30 | External Medical Summary | Summary of Care ---
Author Name Unknown Organization [facility] Address [address] [place] [address] Phone [phone] Care Team Providers Care Buttonhole Maker Hand Name Role Phone Julia Pierce DO Primary Care Provider Reason for Visit * Reason Onset Date Comments Order Request 02/25/2023 Encounter Details Date Type Department Care Team Description 02/25/2023 Telephone Family Practice [address] [place] [address] [place] [address] Julia Pierce DO [address] [place] [address] Order Request (/) Allergies Active [...] mRNA, LNP-s, No Pre serve, 2-Dose Series ([employer]) 11/27/2021,04/22/2021,10/08/2020,09/17 Covid-19, Mrna, Lnp-s, Pf, B ivalent, [...] Encounter - Katharina Lainez LPN - 03/02/2023 10:54 AM EDT Pt aware and verbalized understanding. States her has an appt in [place] today, so she would like to keep the appt to discuss a couple things anyway. * Telephone Encounter - Julia Pierce DO - 03/02/2023 10:35 AM EDT 1. Her thyroid numbers looked good. No change needed. 2. She can move her appt out if she wants. It is not a pre-op as she had her procedure. 3. If she has other things to discuss, can keep it. * Telephone Encounter - Katharina Lainez LPN [...] Visit Family Medicine Julia Pierce DO [address] [facility] [place] [address] 04/23/2023 Nurse Only Ancillary Yoni Nurse Annual Wellness Ning [address] [facility] [address] Health Maintenance Due Date Last Done Comments [...] Julia Pierce DO LAB BLOOD ORDERABLES LABORATORY [facility] [address] [place] [address] documented in this encounter Visit Diagnoses Diagnosis Acquired hypothyroidism- Primary Unspecified hypothyroidism documented in this encounter Care Teams Buttonhole Maker Hand Relationship Specialty Start Date End Date Julia Pierce DO [address] [place] [address] PCP - General Family Medicine 12/30/22 documented as of this encounter
--- OUTSIDE RECORDS SUMMARY | 2023-07-24 10:30 | External Medical Summary | Summary of Care ---
Author Name Unknown Organization [facility] Address [address] [place] [address] Phone [phone] Care Team Providers Care Administrative Aide Name Role Phone Julia Pierce DO Primary Care Provider [phone] Reason for Visit * Reason Onset Date Comments Order Request 02/25/2023 Encounter Details Date Type Department Care Team Description 02/25/2023 Telephone Family Practice [address] [place] [address] [place] [address] Julia Pierce DO [address] [place] [address] Order Request (/) Allergies Active [...] CT abnormal 2013 echo WNL 2015 DEXA [facility] WNL 12/[address] [facility] [address] Abdi--Quiescent IBD, UC? 01/03 stress [...] mRNA, LNP-s, No Pre serve, 2-Dose Series ([employer]) 11/27/2021,04/22/2021,10/08/2020,09/17 Covid-19, Mrna, Lnp-s, Pf, B ivalent, [...] Miscellaneous Notes * Telephone Encounter - Julia Pierce DO [...] EDT Noted. * Telephone Encounter - ROMEL Hudr - 03/02/2023 10:00 AM EDT Pt calling [...] Visit Family Medicine Julia Pierce DO [address] [place] [address] 04/23/2023 Nurse Only Ancillary Nurse Yoni Annual Wellness Ning [address] [place] [address] Health Maintenance Due Date Last Done Comments [...] Julia Pierce DO LAB BLOOD ORDERABLES LAB[facility]ATORY [facility] [address] [place] [address] documented in this encounter Visit Diagnoses Diagnosis Acquired hypothyroidism- Primary Unspecified hypothyroidism documented in this encounter Care Teams Administrative Aide Relationship Specialty Start Date End Date Julia Pierce DO [address] [place] [facility] [place] [address] PCP - General Family Medicine 12/30/22 documented as of this encounter
--- OUTSIDE RECORDS SUMMARY | 2023-07-24 10:30 | External Medical Summary | Summary of Care ---
Author Name Unknown Organization [facility] Address [address] [place] [facility] [address] Phone [phone] Care Team Providers Care Pharmacy District Manager Name Role Phone Julia Pierce DO Primary Care Provider [phone] Reason for Visit * Reason Onset Date Comments Test Results Biopsy 03/10/2023 Encounter Details Date Type Department Care Team Description 03/10/2023 Telephone Dermatology [facility] [place] [address] [place] [address] Brandt Stevens MD [address] [place] [address] Test Results Biopsy Allergies Active Allergy Reactions [...] colon? 05/14 lumbar MRI done. 02/11 CT-pancreas, sehr 2y, Refer uro for microhematuria/bladder CT abnormal 2013 echo WNL 2014 DEXA [facility] WNL 12/[address] [facility] [address] Abdi--Quiescent IBD, UC? 01/03 [...] mRNA, LNP-s, No Pre serve, 2-Dose Series ([employer]) 11/27/2021,04/22/2021,10/08/2020,09/17 Covid-19, Mrna, Lnp-s, Pf, B ivalent, [...] office today. May call her back at [phone]. documented in this encounter Plan of Treatment Upcoming Encounters Date Type Specialty Care Team Description 06/02/2023 Office Visit Family Medicine Julia Pierce, DO [address] [place] [address] 06/25/2023 Nurse Only [employer], Nurse Annual Wellness Visit [address] [place] [address] [place] [address] 03/16/2024 Office Visit Dermatology Brandt Stevens MD 200 [place] [address] Health Maintenance Due Date Last Done Comments [...] filedocumented as of this encounter Care Teams Pharmacy District Manager Relationship Specialty Start Date End Date Julia Pierce, [address] [place] [address] PCP - General Family Medicine 12/30/22 documented as of this encounter
--- OUTSIDE RECORDS SUMMARY | 2023-07-24 10:30 | External Medical Summary | Summary of Care ---
Author Name Unknown Organization [facility] Address [address] [place] [address] Phone [phone] Care Team Providers Care Stamper Blocker Name Role Phone Julia Ruvalcaba DO Primary Care Provider [phone] Reason for Visit * Reason Comments Lesion Patient presents tod ay for lesion under L eye. White dry skin area. Had flaked off last night. Been there since about May of 2022. * Evaluate & Treat - Unlimited Visits (Within 3 days (urgent)) - Authorized Specialty Diagnoses / Procedures Referred By Irma resendiz Referred To Contact Dermatology Diagnoses History of basal cell carcinoma Changing skin lesion Julia Ruvalcaba DO [address] [place] [address] Referral ID Status Reason Start Date Expiration Date Visits Requested Visits Authorized [id number] Authorized Specialty Services Required 03/02/2023 999 999 Encounter Details Date Type Department Care Team Description 03/08/2023 Office Visit Dermatology Brigette Marks [place] [address] [facility] [place] [address] Brandt Stevens MD [address] [facility] [place] [address] Skin neoplasm*; Actinic keratosis; Subcutaneous mass Allergies Active Allergy Reactions Severity Noted Date Comments Morphine And Related Nausea/vomiting 07/10/1999 codeine documented as of this encounter (statuses as of 03/08/2023) Medications Medication Sig Dispensed Refills Start Date [...] as of this encounter (statuses as of 03/08/2023) Active Problems Problem Noted Date Onychomycosis 12/19/2021 [...] as of this encounter (statuses as of 03/08/2023) Resolved Problems Problem Noted Date Resolved Date Left groin pain 12/19/2021 11/10/2022 Microhematuria 02/12/2020 11/10/2022 Overview: 02/[address] Refer Uro. JOINT PAIN-SHLDER 12/24/1998 01/09/2020 URIN TRACT INFECTION NOS 020 documented as of this encounter (statuses as of 03/08/2023) Immunizations Name Administration Dates Next Due COVID-19 [...] as of this encounter Progress Notes * Brandt Stevens MD - 03/08/2023 11:39 AM EDT SUBJECTIVE: Chief Complaint: Chief Complaint Patient presents with Lesion Patient presents today for lesion under L eye. White dry skin area. Had flaked off last night. [facility] since about May of 2022. HPI: Nicholas Clemens is a 83 year old female seen for ACUTE visit for spot under left eye. Present off and on for several months. Will flake off but then come back. Concerned about bcc DERMATOLOGIC HISTORY: 2020 - BCC - left nasal root 2015 - BCC - right nasal ala OBJECTIVE: GEN: Healthy, alert, no distress, appears oriented, pleasant, and cooperative SKIN: Problem focused exam reveals: Patient declined full skin exam A. Right frontal hairline - pink shiny papule with thin overlying crust/scale - r/o BCC Left infraorbital cheek x1, right episcopalian x2 - x3 gritty erythematous macules/papules Left frontal scalp with large compressible subcutaneous nodule vs edema ASSESSMENT/PLAN: Skin neoplasm(s) - Shave biopsy of the following lesion(s) A. Right frontal hairline - pink shiny papule with thin overlying crust/scale - r/o BCC Procedure - Tangential biopsy of skin Biopsy by shave was recommended for the lesion(s) noted above to establish and confirm diagnosis. The procedure, risks, benefits, alternatives and expected outcomes were discussed with the patient and consent was obtained. Time out called. Patient identified, procedure verified, site(s) identified and verified. Patient and staff present in agreement. Area prepped with alcohol and anesthetized using 0.5% lidocaine with epinephrine at 1:200,000 concentration. Biopsy of lesion(s) performed. 20% AlCl and bandaging applied. Specimen(s) sent to pathology. Patient instructed in routine post-op care. Actinic keratosis -The diagnosis and malignant potential of the lesion was explained. Treatment options were reviewedincluding cryotherapy, topical medications, and observation. All questions were addressed. Procedure - Cryotherapy (Premalignant Destruction) -The patient would like to proceed with cryosurgery;Cryosurgery explained to the patient, consent obtained, patient, site and procedure verified, and then cryotherapy was performed with Liquid Nitrogen via cryo spray unit to 3 lesions. Location noted in physical exam. Post op course explained. -Discussed that if any of these lesions fail to completely resolve after treatment patient should call me for re-evaluation Subcutaneous mass - ddx: EIC? Lipoma? - patient tells me present many years but growing - U/S ordered Brandt Stevens MD Ref: JULIA RUVALCABA[[id number]] [address] [place] [address] (office) [phone] (fax) PCP: JULIA RUVALCABA [address] [place] [address] [phone] documented in this encounter Nursing Notes * Yamile Moreno LPN - 03/08/2023 11:39 AM EDT Patient identified by name and date. Chief Complaint Patient presents with Lesion Patient presents today for lesion under L eye. White dry skin area. Had flaked off last night. [place] since about May of 2022. documented in this encounter Plan of Treatment Upcoming Encounters Date Type Specialty Care Team Description 06/02/2023 Office Visit Family Medicine Julia Ruvalcaba DO [address] [place] [address] 06/25/2023 Nurse Only [employer]illary [employer], Nurse Annual Wellness Visit [address] [place], [place] [address] 03/16/2024 [facility] Visit [facility]atology [facility] [address] [facility] [address] Pending Results Name Type Priority Associated Diagnoses Date /Time SURGICAL PATHOLOGY Pathology Routine Skin neoplasm 03/08/2023 12:01 PM EDT Scheduled Orders Name Type Priority Associated Diagnoses Orde r Schedule US HEAD AND NECK Medical Imaging Routine Subcutaneous mass Expected: 03/08/2023, Expires: 04/08/2024 Health Maintenance Due Date Last Done Comments [...] as of this encounter Visit Diagnoses Diagnosis Skin neoplasm- Primary Neoplasm of unspecified nature of bone, soft tissue, and skin Actinic keratosis Subcutaneous mass Localized superficial swelling, mass, or lump documented in this encounter Care Teams Stamper Blocker Relationship Specialty Start Date End Date Julia Ruvalcaba DO [address] [place] [address] PCP - General Family Medicine 12/30/22 documented as of this encounter
--- OUTSIDE RECORDS SUMMARY | 2023-07-24 10:30 | External Medical Summary | Summary of Care ---
Author Name Unknown Organization [facility] Address [address] [place] [address] Phone [phone] Care Team Providers Care Vp [employer] [place] Name Role Phone Julia Ruvalcaba DO Primary Care Provider [phone] Reason for Visit * Reason Onset Date Comments Medication Refill 03/03/2023 Encounter Details Date Type Department Care Team Description 03/03/2023 Refill Family Practice [address] [place] [address] [place] [address] Julia Ruvalcaba DO [address] [place] [address] Acquired hypothyroidism Allergies Active Allergy Reactions Severity Noted Date Comments Morphine And Related Nausea/vomiting 07/10/1999 codeine documented as of this encounter (statuses as of 03/05/2023) Medications Medication Sig Dispensed Refills Start Date [...] as of this encounter (statuses as of 03/05/2023) Active Problems Problem Noted Date Onychomycosis 12/19/2021 [...] abnormal 2013 echo WNL 2015 DEXA [facility] WNL 12/03 Colon [facility] Dr Abdi--Quiescent IBD, UC? 01/03 stress test [facility] WNL Reflux esophagitis Essential hypertension with goal blood p ressure less than 140/90 Myalgia and myositis Lumbar spinal stenosis Cyst of kidney, acquired Overview: Right Renal Cyst S/P lumbar fusion documented as of this encounter (statuses as of 03/05/2023) Resolved Problems Problem Noted Date Resolved Date Left groin pain 12/19/2021 11/10/2022 Microhematuria 02/12/2020 11/10/2022 Overview: 02/[address] Refer Uro. JOINT PAIN-SHLDER 12/24/1998 01/09/2020 URIN TRACT INFECTION NOS 020 documented as of this encounter (statuses as of 03/05/2023) Immunizations Name Administration Dates Next Due COVID-19 [...] encounter Miscellaneous Notes * Addendum Note - Amber Gutierrez CPhT - 03/05/2023 8:34 AM EDTAddended by: AMBER GUTIERREZ on: 03/05/2023 08:34 AM Modules accepted: Orders * Telephone Encounter - Amber Gutierrez CPhT - 03/05/2023 8:33 AM EDT Patient is requesting a 90-day supply, pre-edited RXs as such. Please review and approve if appropriate. Pt is requesting high priority because he does not want to make another trip. He wants med ready today. Pending Prescriptions: Disp Refills Levothyroxine Sodium 25 MCG Oral Tablet (*90 Tab*1 Sig: Take 1 Tablet by mouth in the morning. (at least 30 min prior to breakfast or other meds). Signed Prescriptions: Disp Refills Levothyroxine Sodium 25 MCG Oral Tablet (L*30 Tab*5 Sig: Take 1 Tablet by mouth in the morning. (at least 30 min prior to breakfast or other meds). Authorizing Provider: JULIA RVUALCABA Last Visit: 03/02/2023 (in office), Visit date not found (telemedicine) 06/02/2023 If no future appointments scheduled, and last appointment is greater than a year ago, please schedule patient for an appointment Last date the medication was ordered: 03/03/23 Patient Phone Numbers Labs: Lab Results Component Value Date/Time CREAT 0.7 12/30/2022 11:54 AM CREAT 0.7 01/09/2020 12:09 PM POTASSIUM 4.0 12/30/2022 11:54 AM POTASSIUM 3.8 01/09/2020 12:09 PM TSH 4.01 02/25/2023 12:33 PM LDLCALC 176 (H) 12/19/2021 09:14 AM ALT 18 12/30/2022 11:54 AM HGBA1C 6.1 (H) 04/19/2000 09:34 PM * Telephone Encounter - Julia Ruvalcaba DO [...] pharmacy and medication before forwarding?yes Pharmacy: [facility] Pending Prescriptions: Disp Refills Levothyroxine Sodium [...] time they went 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 States [...] less than 140/90 I10 Myalgia and myositis [id number] Lumbar spinal stenosis M48.061 Cyst of kidney, [...] Visit Dermatology Brandt Stevens MD [address] [facility] [place] [address] 06/02/2023 Office Visit Family Medicine Julia Ruvalcaba, [address] [facility], [place] [address] 06/25/2023 Nurse Only [employer]illary [employer], Nurse Annual Wellness Visit [address] [place] [address] Health Maintenance Due Date Last Done Comments [...] hypothyroidism documented in this encounter Care Teams Vp [employer] [place] Relationship Specialty Start Date End Date Julia Ruvalcaba, DO [address] [facility] [place] [address] PCP - General Family Medicine 12/30/22 documented as of this encounter
[2023-07-24] MEDS ORDERED: MECLIZINE HCL 25 MG TAB PO STA (12:29)
[2023-07-24] MEDS ORDERED: LORazepam 1 MG/1 ML SYR ED Inj Use IV STA ×2 (12:29→15:21)
[2023-07-24] MEDS ORDERED: ONDANSETRON INJ 2 MG/ML 2 ML VIAL IV STA ×2 (12:29→15:21)
[2023-07-24] MEDS ORDERED: SODIUM CHLORIDE 0.9% 1,000 ML IV ONE (12:29)
--- NOTE | 2023-07-24 12:29 | Emergency Department Note ---
Impression & Plan Dizziness, Vomiting ED Provider Note NAME: EBONY GORDON AGE: 83 SEX: F : 1940 ARRIVES VIA: Walk-In INFORMANT: Patient ED PROVIDER(S): George Murrell DO CHIEF COMPLAINT: dizzy HPI: Patient is an 83-year-old female who presents to the ER for feeling dizzy. This started this past . She notes that she has been unable to get up on get out of bed. She has been unable to eat or drink anything as she has had persistent vomiting. She admits to headache. Light bothers her. She notes if she lays still the vomiting is better. Does have an upset stomach but no belly pain. No dysuria urgency or frequency. No weakness or numbness in the arms or legs. She has had this before but never this bad. offers additional history that she is not able to eat or drink anything since ADDITIONAL HISTORY OBTAINED: Per HPI Chronic Medical/Social Conditions Affecting Care: Per HPI PAST MEDICAL HISTORY:See Below PAST SURGICAL HISTORY:See Below FAMILY HISTORY:See Below SOCIAL HISTORY:See Below HOME MEDICATIONS:See Below ALLERGIES:See Below VITALS:See Below PHYSICAL EXAMINATION: GENERAL: Sitting up in bed, alert, well appearing, well nourished, no distress, non-toxic EYE EXAM: normal conjunctiva. PERRL and EOM's intact. OROPHARYNX: no exudate, no erythema, lips, buccal mucosa, and tongue normal and mucous membranes are moist NECK: supple, no nuchal rigidity, no adenopathy, non-tender LUNGS: Clear to auscultation. Normal chest wall mechanics HEART: no murmurs, S1 normal and S2 normal ABDOMEN: abdomen soft, non-tender, normo-active bowel sounds, no masses, no rebound or guarding. BACK: Back is symmetrical on inspection and there is no deformity, no midline tenderness, no CVA tenderness. SKIN: no rashes and no bruising UPPER EXTREMITIES: upper extremities are grossly normal. LOWER EXTREMITIES: No pitting edema. NEURO EXAM: Normal sensorium, cranial nerves II-XII intact, normal speech, no weakness of arms, no weakness of legs. No drift. Finger to nose intact. Gross sensation intact. MEDICAL DECISION MAKING: Patient is an 83-year-old female who presents the ER for dizziness and unable to get out of bed since . She has had the symptoms before but never this bad. IV was established blood work is obtained. Labs show no significant leukocytosis or anemia. BMP with LFTs bilirubin was unremarkable. Troponin was negative. UA was clean. CT angio of the head was unremarkable. Chest x-ray was clean. EKG was nondiagnostic. Patient was given IV fluids, Ativan x 2 IV as well as Zofran and Antivert. The vomiting has abated but still very unsteady on her feet consequently was discussed with the hospitalist for further evaluation. Consults/Care Managements Discussions: Per [facility] Triage Nursing notes reviewed. Limited review of prior medical records performed Vital Signs: reviewed and remarkable for HTN Differential diagnosis: Differential diagnosis includes etiologies such as benign positional vertigo, dehydration, hypovolemia, anemia, tumor, infection, hypoglycemia, electrolyte abnormalities, cardiac sources, intracerebral event, toxicologic, neurological, as well as others were entertained. ER treatment provided: See below Diagnostics interpreted by me include EKG and cardiac monitoring as listed below: -Cardiac Monitoring: An order was placed for continuous cardiac monitoring. The monitor shows a rate of 60 with sinus rhythm. -ECG: Sinus rhythm rate of 58 Normal axis No PVCs QTc 457 -Laboratory studies:Interpreted by me as stated above in MDM and shown below. Imaging studies: Xrays: As interpreted by me: Portable AP upright 1 view of the chest shows no focal CTs show: none Procedures:none Critical Care: None Past Med/Surg History Medical History (Updated 07/24/23 @ 16:19 by George Murrell DO) COVID-19 virus detected + 08/21/20 Jaw symptom WITH EXTENDED OPENING OF JAW - DISCOMFORT History of polymyalgia rheumatica History of fibromyalgia PONV (postoperative nausea and vomiting) Borderline high cholesterol HTN (hypertension) Spinal stenosis Surgical History History of left cataract surgery History of endoscopy History of colonoscopy History of back surgery X2 (ONE WITH HARDWARE, NOT SURE DETAILS ABOUT THE OTHER SX) [place] teeth removed HX OF History of hysterectomy History of appendectomy Family History Father Colorectal cancer Mother Lymphoma Type 2 diabetes mellitus Brother Type 2 diabetes mellitus Denies family history of Ovarian cancer Prostate cancer Myocardial infarction Breast cancer Social History Smoking Status: Former smoker Age Started Using Tobacco: 17; Age Quit Using Tobacco: 51; Second Hand Exposure: No; Do You Dip or Chew Tobacco: No; Hx Alcohol Use: Yes Alcohol type: wine Hx Substance Use: No Preferred Language: Upper Sorbian Communication Ability: Effective Visual Impairment: No Limitations Hearing Ability: Normal Signs Cleaner Required: No Beliefs That Will Affect Care: None marital status: Current Living Situation: Spouse and Family Current Living Situation Comment: & DAUGHTER current occupational status: retired Feels Safe at Home: Yes Dental Care, Regularly: Yes Physical Activity Frequency: Daily Seatbelt Use: always Sunscreen Use: Yes Allergies Allergies Allergy/AdvReac Type Severity Reaction Status Date / Time codeine AdvReac Unknown "Sick" Verified 07/24/23 15:34 METAL Allergy Unknown SEE NOTES Uncoded 07/24/23 15:34 BELOW Home Meds Home Medications Medication Instructions Recorded Confirmed hydrochlorothiazide 25 mg tablet 25 mg PO QAM 08/20/20 07/24/23 losartan 25 mg tablet 25 mg PO QAM 08/20/20 07/24/23 prednisone 1 mg tablet 1 mg PO QAM 08/20/20 07/24/23 acetaminophen 500 mg tablet 500 mg PO Q6H PRN pain/fever 07/24/23 07/24/23 levothyroxine 25 mcg tablet 25 mcg PO QAM 07/24/23 07/24/23 Results & Data (ED) Vital Signs Vital Signs - 24 hr 07/24/23 10:49 07/24/23 12:06 07/24/23 12:52 Temperature 36.5 C Temperature Source Oral Pulse Rate 62 Pulse Rate [Apical] 64 Pulse Rhythm Regular Pulse Rhythm [Apical] Regular Pulse Strength Normal Pulse Strength [Apical] Normal Respiratory Rate 20 19 Respiratory Effort / Characteristics Non-Labored Spontaneous Non-Labored Respiratory Depth Normal Normal Respiratory Pattern Regular Regular Blood Pressure 156/85 H Blood Pressure [Left Arm] 141/75 H Blood Pressure Mean 108 Blood Pressure Mean [Left Arm] 97 Blood Pressure Position Sitting Pulse Oximetry 94 94 94 Oxygen Delivery Method Room Air Room Air Room Air Sepsis Recent Fever Within 48 Hours No Sepsis New/Unexplained Change in Mental Status No Sepsis Action Taken by Nursing No Action Required 07/24/23 12:56 07/24/23 14:00 Temperature Temperature Source Pulse Rate 65 Pulse Rate [Apical] 67 Pulse Rhythm Pulse Rhythm [Apical] Regular Pulse Strength Pulse Strength [Apical] Normal Respiratory Rate 19 Respiratory Effort / Characteristics Non-Labored Respiratory Depth Normal Respiratory Pattern Regular Blood Pressure Blood Pressure [Left Arm] 158/90 H Blood Pressure Mean Blood Pressure Mean [Left Arm] 112 Blood Pressure Position Pulse Oximetry 93 Oxygen Delivery Method Room Air Sepsis Recent Fever Within 48 Hours Sepsis New/Unexplained Change in Mental Status Sepsis Action Taken by Nursing Laboratory Data 07/24/23 12:20 07/24/23 12:20 Lab Results 07/24/23 07/24/23 Range/Units 12:20 15:10 WBC 8.57 (4.8-10.8) K/ul RBC 5.17 (4.20-5.40) M/uL Hgb 14.9 (12.0-16.0) g/dl Hct 45.9 (37.0-47.0) % MCV 88.8 (80.0-100.0) fL MCH 28.8 (25.0-34.0) pg MCHC 32.5 (32.0-36.0) g/dL RDW Std Deviation 42.8 (36.4-46.3) fL RDW Coeff of Tracey 13.2 (11.5-14.5) % Plt Count 238 (130-400) K/uL MPV 9.2 L (9.4-12.4) fL Immature Gran % (Auto) 0.5 % Neut % (Auto) 80.8 % Lymph % (Auto) 12.5 % [place] % (Auto) 5.6 % Eos % (Auto) 0.4 % Baso % (Auto) 0.2 % Neut # (Auto) 6.93 H (1.40-6.50) K/uL Lymph # (Auto) 1.07 L (1.20-3.40) K/uL [place] # (Auto) 0.48 (0.11-0.59) K/uL Eos # (Auto) 0.03 (0.00-0.50) K/uL Baso # (Auto) 0.02 (0.00-0.20) K/uL Immature Gran # (Auto) 0.04 (0.01-0.20) K/uL Sodium 137 (136-145) mmol/L Potassium 3.9 (3.5-5.1) mmol/L Chloride 100 (98-107) mmol/L Carbon Dioxide 26 (21-32) mmol/L Anion Gap 11 (3-11) BUN 23 (6-23) mg/dl Creatinine 0.71 (0.6-1.2) mg/dl Est Cr Clr Drug Dosing Not Reportable Est GFR ( Amer) 90.7 ml/min Est GFR (Non-Af Amer) 78.2 ml/min BUN/Creatinine Ratio 32.4 H (10-20) Glucose 114 H (70-99(Fasting)) mg/dl Calcium 9.8 (8.6-10.3) mg/dl Total Bilirubin 0.6 (0.2-1.0) mg/dl AST 24 (13-39) U/L ALT 19 (7-52) U/L Alkaline Phosphatase 66 (34-104) U/L Troponin I High Sens 8.8 (0-14) pg/ml Total Protein 8.9 H (6.0-8.3) gm/dl Albumin 4.5 (3.4-5.0) gm/dl Globulin 4.4 H (2.5-4.0) gm/dl Albumin/Globulin Ratio 1.0 (0.9-2) Lipase 9 L (11-82) U/L Urine Color Yellow Urine Appearance Clear (Clear) Urine pH 5.5 (4.5-7.5) Ur Specific [place] 1.023 (1.000-1.030) Urine Protein Negative (Negative) Urine Glucose (UA) Negative (Negative) Urine Ketones 2+ H (Negative) Urine Blood 2+ H (Negative) Urine Nitrite Negative (Negative) Urine Bilirubin Negative (Negative) Urine Urobilinogen Negative (Negative) Ur Leukocyte Esterase Negative (Negative) Urine WBC (Auto) 1-5 (0-5) /hpf Urine RBC (Auto) 5-10 H (0-4) /hpf U Hyaline Cast (Auto) 1-5 (0-5) /lpf U Epithel Cells (Auto) 5-10 H (0-5) /lpf Urine Bacteria (Auto) Negative (Negative) Administered Medications Discontinued Medications Sodium Chloride (Nss) 1,000 mls @ 999 mls/hr IV .Q1H1M ONE Stop: 07/24/23 13:29 Last Infusion: 07/24/23 14:05 Dose: Infused Documented By: Admin: 07/24/23 12:45 Dose: 999 mls/hr Documented By: SUREKHA Ioversol (Optiray 320 125ml) 115 ml IV ONCE ONE Stop: 07/24/23 14:49 Last Admin: 07/24/23 14:48 Dose: 115 ml Documented By: ELIO Lorazepam (Lorazepam 1 Mg/1 Ml Syr Ed Inj Use) 0.5 mg IV ONE STA Stop: 07/24/23 12:30 Last Admin: 07/24/23 12:45 Dose: 0.5 mg Documented By: SUREKHA Lorazepam (Lorazepam 1 Mg/1 Ml Syr Ed Inj Use) 0.5 mg IV ONE STA Stop: 07/24/23 15:22 Last Admin: 07/24/23 15:31 Dose: 0.5 mg Documented By: SUREKHA Meclizine HCl (Meclizine Hcl 25 Mg Tab) 25 mg PO NOW STA Stop: 07/24/23 12:30 Last Admin: 07/24/23 12:45 Dose: 25 mg Documented By: SUREKHA Ondansetron HCl (Ondansetron Inj 2 Mg/Ml 2 Ml Vial) 4 mg IV NOW STA Stop: 07/24/23 12:30 Last Admin: 07/24/23 12:45 Dose: 4 mg Documented By: SUREKHA Ondansetron HCl (Ondansetron Inj 2 Mg/Ml 2 Ml Vial) 4 mg IV NOW STA Stop: 07/24/23 15:22 Last Admin: 07/24/23 15:31 Dose: 4 mg Documented By: SUREKHA Imaging Data Radiologist's Impression: Chest X-Ray 07/24/23 12:06 XR chest 1V portable HISTORY: 83 years-old Female Chest pain, nonspecific acute dizziness COMPARISON: 12/21/2019 TECHNIQUE: AP view of the chest FINDINGS: Cardiac silhouette is enlarged. Mild subsegmental bibasilar densities. No pneumothorax, pleural effusion or pulmonary edema. Bones of the chest appear grossly intact. IMPRESSION: Cardiomegaly with basilar opacities favoring atelectasis. A mild pneumonitis considered less likely. ACT 112: Negative or not required by law. The above report was generated using voice recognition software. It may contain grammatical, syntax or spelling errors. Electronically signed by: Ronal Cardenas M.D. 07/24/2023 12:59 PM Head CTA 07/24/23 13:03 CT angio head wo/w CLINICAL HISTORY: 83 years-old Female with dizzy. Acute dizziness COMPARISON STUDY: None TECHNIQUE: Unenhanced axial CT scan of the brain is performed. Subsequently, following the IV administration of 115 cc of Optiray, CT angiogram of the brain was performed from the skull base to the vertex. Images are reviewed in the axial, sagittal, and coronal planes. 3-D MIPS images are created and assessed. IV contrast was administered without complication. All measurements were obtained according to NASCET criteria. A dose lowering technique was utilized adhering to the principles of ALARA. CT DOSE: 670.8 mGy.cm FINDINGS: CT BRAIN: There is no acute intracranial hemorrhage, midline shift, hydrocephalus, intracranial mass, territorial ischemia or abnormal extra-axial collections. No abnormal intra-axial or extra-axial enhancement. Mastoid air cells and middle ear cavities are clear. No calvarial fracture. 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 Prior bilateral lens repair. Paranasal sinuses are clear. CT ANGIOGRAM OF THE BRAIN: The imaged bilateral internal carotid arteries are patent. The bilateral anterior and middle cerebral arteries are also patent. The vertebrobasilar system and posterior cerebral arteries are widely patent. There is mild fusiform dilation of the cavernous segment left ICA which measures 6 mm compared to normal 5 mm on the right. No High-grade stenosis, or proximal branch occlusion identified. Dural sinuses appear patent. IMPRESSION: 1. No acute intracranial abnormality. 2. No dissection, high-grade stenosis or arterial occlusion identified. 3. 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 ACT 112: Negative or not required by law. The above report was generated using voice recognition software. It may contain grammatical, syntax or spelling errors. Electronically signed by: Ronal Cardenas M.D. 07/24/2023 3:07 PM Discharge Plan Visit Data Chief Complaint: Dizziness Stated Complaint: VOMITING, NAUSEA, DECREASED PO INTAKE ED Provider: George Murrell Discharge Problem: Dizziness, Vomiting Forms Stand Alone Forms: My [facility] Prescriptions Prescriptions: No Action prednisone 1 mg Tablet 1 mg PO QAM losartan 25 mg Tablet 25 mg PO QAM hydrochlorothiazide 25 mg tablet 25 mg PO QAM levothyroxine 25 mcg tablet 25 mcg PO QAM acetaminophen [Tylenol Ex Str Rapid Release] 500 mg Tablet 500 mg PO Q6H PRN (Reason: pain/fever) Referrals Referrals: Sin Grady MD [Primary Care Provider] - Discharge Problem: Vomiting Qualifiers: Vomiting type: unspecified Nausea presence: unspecified Qualified Code(s): R 11.10 - Vomiting, unspecified
[2023-07-24 12:35] LABS: Basophils # (auto) 0.02 K/uL (0.00-0.20); Basophils % (auto) 0.2 %; Eosinophils # (auto) 0.03 K/uL (0.00-0.50); Eosinophils % (auto) 0.4 %; Hematocrit (blood only) 45.9 % (37.0-47.0); Hemoglobin 14.9 g/dl (12.0-16.0); Immature Granulocytes # (auto) 0.04 K/uL (0.01-0.20); Immature Granulocytes % (auto) 0.5 %; Lymphocytes # (auto) 1.07 K/uL (1.20-3.40); Lymphocytes % (auto) 12.5 %; Mean Corpuscular Hemoglobin 28.8 pg (25.0-34.0); Mean Corpuscular Hgb Conc 32.5 g/dL (32.0-36.0); Mean Corpuscular Volume 88.8 fL (80.0-100.0); Mean Platelet Volume 9.2 fL (9.4-12.4); Monocytes # (auto) 0.48 K/uL (0.11-0.59); Monocytes % (auto) 5.6 %; Neutrophils # (auto) 6.93 K/uL (1.40-6.50); Neutrophils % (auto) 80.8 %; Platelet Count 238 K/uL (130-400); RDW Coefficient of Variation 13.2 % (11.5-14.5); RDW Standard Deviation 42.8 fL (36.4-46.3); Red Blood Count 5.17 M/uL (4.20-5.40); White Blood Count 8.57 K/ul (4.8-10.8)
[2023-07-24 12:51] LABS: Alanine Aminotransferase 19 U/L (7-52); Albumin Level 4.5 gm/dl (3.4-5.0); Alkaline Phosphatase 66 U/L (34-104); Anion Gap 11 (3-11); Aspartate Aminotransferase 24 U/L (13-39); BUN Creatinine Ratio 32.4 (10-20); Bilirubin,Total 0.6 mg/dl (0.2-1.0); Blood Urea Nitrogen 23 mg/dl (6-23); Calcium 9.8 mg/dl (8.6-10.3); Carbon Dioxide 26 mmol/L (21-32); Chloride 100 mmol/L (98-107); Est GFR (African American) 90.7 ml/min; Est GFR (Non-African American) 78.2 ml/min; Globulin 4.4 gm/dl (2.5-4.0); Glucose 114 mg/dl (70-99(Fasting)); Lipase 9 U/L (11-82); Potassium 3.9 mmol/L (3.5-5.1); Sodium 137 mmol/L (136-145); Total Protein 8.9 gm/dl (6.0-8.3)
[2023-07-24 12:58] LABS: Troponin I High Sensitivity 8.8 pg/ml (0-14)
--- NOTE | 2023-07-24 13:00 | XRay Report ---
XR chest 1V portable HISTORY: 83 years-old Female Chest pain, nonspecific acute dizziness COMPARISON: 12/21/2019 TECHNIQUE: AP view of the chest FINDINGS: Cardiac silhouette is enlarged. Mild subsegmental bibasilar densities. No pneumothorax, pleural effus ion or pulmonary edema. Bones of the chest appear grossly intact. IMPRESSION: Cardiomegaly with basilar opacities favoring atelectasis. A mild pneumonitis considered l ess likely. ACT 112: Negative or not required by law. The above report was generated using voice recognition software. It may contain grammatical, syntax o r spelling errors. Electronically signed by: Ronal Cardenas M.D. 07/24/2023 12:59 PM
[2023-07-24] MEDS ORDERED: OPTIRAY 320 125ml IV ONE (14:48)
--- NOTE | 2023-07-24 15:10 | CT Scan Report ---
CT angio head wo/w CLINICAL HISTORY: 83 years-old Female with dizzy. Acute dizziness COMPARISON STUDY: None TECHNIQUE: Unenhanced axial CT scan of the brain is performed. Subsequently, following the IV adminis tration of 115 cc of Optiray, CT angiogram of the brain was performed from the skull base to the vert ex. Images are reviewed in the axial, sagittal, and coronal planes. 3-D MIPS images are created and a ssessed. IV contrast was administered without complication. All measurements were obtained according to NASCET criteria. A dose lowering technique was utilized adhering to the principles of ALARA. CT DOSE: 670.8 mGy.cm FINDINGS: CT BRAIN: There is no acute intracranial hemorrhage, midline shift, hydrocephalus, intracranial mass, territori al ischemia or abnormal extra-axial collections. No abnormal intra-axial or extra-axial enhancement. Mastoid air cells and middle ear cavities are clear. No calvarial fracture. 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 Prior bilateral lens repair. Paranasal sinuses are clear. CT ANGIOGRAM OF THE BRAIN: The imaged bilateral internal carotid arteries are patent. The bilateral anterior and middle cerebral arteries are also patent. The vertebrobasilar system and posterior cerebral arteries are widely garcia nt. There is mild fusiform dilation of the cavernous segment left ICA which measures 6 mm compared to normal 5 mm on the right. No High-grade stenosis, or proximal branch occlusion identified. Dural sin uses appear patent. IMPRESSION: 1. No acute intracranial abnormality. 2. No dissection, high-grade stenosis or arterial occlusion identified. 3. 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 ACT 112: Negative or not required by law. The above report was generated using voice recognition software. It may contain grammatical, syntax o r spelling errors. Electronically signed by: Ronal Cardenas M.D. 07/24/2023 3:07 PM
[2023-07-24 15:26] LABS: Appearance Urine Clear (Clear); Bacteria Urine Automated Negative (Negative); Bilirubin Urine Negative (Negative); Blood Urine 2+ (Negative); Color Urine Yellow; Glucose Urine UA Negative (Negative); Ketones Urine 2+ (Negative); Leukocyte Esterase Urine Negative (Negative); Nitrite Urine Negative (Negative); Protein Urine Negative (Negative); Specific Gravity Urine 1.023 (1.000-1.030); Urobilinogen Urine Negative (Negative); pH Urine 5.5 (4.5-7.5)
[2023-07-24] MEDS ORDERED: ONDANSETRON INJ 2 MG/ML 2 ML VIAL IV PRN (16:04)
[2023-07-24] MEDS ORDERED: POLYETHYLENE (MIRALAX) 17 GM PACK PO PRN (16:04)
[2023-07-24] MEDS ORDERED: ALUMINUM/MAGNESIUM SUSP 30 ML UDC PO PRN (16:04)
[2023-07-24] MEDS ORDERED: MAGNESIUM HYDROXIDE SUSP 30 ML UDC PO PRN (16:04)
[2023-07-24 16:26] LABS: Magnesium 2.2 mg/dl (1.7-2.4); Phosphorus 3.3 mg/dl (2.5-4.9)
--- NOTE | 2023-07-24 18:16 | History & Physical Report ---
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 This time her symptoms did not improve and hence presented to the ED. CXR with no acute findings. CT head with no acute intracranial abnormality. Mild fusiform dilation of the cavernous segment left ICA measuring 6 mm noted. can be followed up w/ pcp office for snf monitoring. Admitting labs reviewed, fairly WNL including electrolytes. Procalcitonin negative. Lipase negative. Urinalysis negative. [employer] sent Will get orthostatic vitals. Fall precaution, PT/OT. Nausea control. Hypertension: Hold hydrochlorothiazide. Will continue with losartan for now. Hypothyroidism: Continue home levothyroxine Polymyalgia rheumatica: Continue home prednisone DVT prophylaxis: Heparin subcu Full code Admission and Anticipated Discharge Date Admission Date: July 24, 2023 History of Present Illness Chief Complaint: Dizziness, nausea, vomiting Primary Care Provider: Sin Grady MD 83-year-old lady with PMH of essential hypertension, reflux esophagitis, maria esther ymyalgia rheumatica, trigger finger of left thumb, herpes zoster without complication, history of recurrent self limited dizziness presented to the ED with complaint of dizziness associated with nausea and vomiting since last 2 days. Patient reports it is similar to her dizziness attacks in the past which generally happens every 4 to 6 months and are self-limited in 1 to 2 days with rest and not eating. But this time after 2 days this is not resolving and hence he presented to the ED. Patient reports no blood in the vomitus but not being able to eat due to vomiting and nausea. Patient reports being dizzy while sitting up or getting up to walk. Was not dizzy on the bed while changing position during bedside exam. Patient denies any flulike illness but reports scratchy throat from vomiting. Patient denies any febrile illness or chest pain or headache or acute changes in her bowel or bladder habits. Patient reports quitting smoking in 1990, rarely drinks alcohol. Full code. Medications reviewed with the patient at bedside. Allergies Allergy/AdvReac Type Severity Reaction Status Date / Time codeine AdvReac Unknown "Sick" Verified 07/24/23 15:34 METAL Allergy Unknown SEE NOTES Uncoded 12/30/23 15:34 BELOW Home Medications Medication Instructions Recorded Confirmed Type hydrochlorothiazide 25 mg tablet 25 mg PO QAM 08/20/20 07/24/23 History losartan 25 mg tablet 25 mg PO QAM 08/20/20 07/24/23 History prednisone 1 mg tablet 1 mg PO QAM 08/20/20 07/24/23 History acetaminophen 500 mg tablet 500 mg PO Q6H PRN pain/fever 07/24/23 07/24/23 History levothyroxine 25 mcg tablet 25 mcg PO QAM 07/24/23 07/24/23 History Past Med/Surg History Medical History (Updated 07/24/23 @ 16:19 by George Murrell DO) COVID-19 virus detected + 08/21/20 Jaw symptom WITH EXTENDED OPENING OF JAW - DISCOMFORT History of polymyalgia rheumatica History of fibromyalgia PONV (postoperative nausea and vomiting) Borderline high cholesterol HTN (hypertension) Spinal stenosis Surgical History History of left cataract surgery History of endoscopy History of colonoscopy History of back surgery X2 (ONE WITH HARDWARE, NOT SURE DETAILS ABOUT THE OTHER SX) [place] teeth removed HX OF History of hysterectomy History of appendectomy Family History Father Colorectal cancer Mother Lymphoma Type 2 diabetes mellitus Brother Type 2 diabetes mellitus Denies family history of Ovarian cancer Prostate cancer Myocardial infarction Breast cancer Social History Smoking Status: Former smoker Age Started Using Tobacco: 17; Age Quit Using Tobacco: 51; Second Hand Exposure: No; Do You Dip or Chew Tobacco: No; Hx Alcohol Use: Yes Alcohol type: wine Hx Substance Use: No Preferred Language: Welsh Communication Ability: Effective Visual Impairment: No Limitations Hearing Ability: Normal Bread Panner Required: No Beliefs That Will Affect Care: None marital status: Current Living Situation: Spouse and Family Current Living Situation Comment: & DAUGHTER current occupational status: retired Feels Safe at Home: Yes Dental Care, Regularly: Yes Physical Activity Frequency: Daily Seatbelt Use: always Sunscreen Use: Yes Review of Systems Review of Systems: Negative otherwise mentioned in HPI. Physical Exam Physical Exam: GENERAL: Alert and oriented x3. NAD, on 2L O2 via NC. Appears weak/ill. HEENT: No pallor, no icterus. Pupils equal, round and reactive to light. Oral mucosa dry. NECK: No JVD, no neck masses. HEART: S1 and S2 heard. Regular rate and rhythm. No murmur, no gallop. RESPIRATORY SYSTEM: Normal AP diameter. No accessory muscle use. No wheezing, no crackles. ABDOMEN: Soft, bowel sounds present, nontender, no distention. CENTRAL NERVOUS SYSTEM: No facial droop. Speech is clear. Obeys simple commands. Moves extremities. EXTREMITIES: No edema, no erythema seen. Results & Data Results & Data Vital Signs (Past 12 Hours) Vital Signs Temp Pulse Pulse Resp BP BP Pulse Ox 07/24/23 17:40 72 19 129/86 98 07/24/23 14:00 67 19 158/90 H 93 07/24/23 12:56 65 07/24/23 12:52 64 19 141/75 H 94 07/24/23 12:06 94 07/24/23 10:49 36.5 C 62 20 156/85 H 94 O2 Del Method 07/24/23 17:40 Room Air 07/24/23 14:00 Room Air 07/24/23 12:56 07/24/23 12:52 Room Air 07/24/23 12:06 Room Air 07/24/23 10:49 Room Air Code Status & VTE Plan VTE Prophylaxis Plan VTE Prophylaxis will be ordered: Yes (1) Vomiting Nausea presence: unspecified Vomiting type: unspecified Qualified Code(s): R11.10 - Vomiting, unspecified
[2023-07-24] MEDS ORDERED: MECLIZINE 12.5 MG TAB PO PRN (18:24)
[2023-07-24 19:01] LABS: Adenovirus PCR Not Detected (NotDetected); Bordetella parapertussis PCR Not Detected (NotDetected); Bordetella pertussis PCR Not Detected (NotDetected); Chlamydia pneumoniae PCR Not Detected (NotDetected); Coronavirus 229E PCR Not Detected (NotDetected); Coronavirus CoV-2 (COVID19)PCR Not Detected (NotDetected); Coronavirus HKU1 PCR Not Detected (NotDetected); Coronavirus NL63 PCR Not Detected (NotDetected); Coronavirus OC43PCR Not Detected (NotDetected); Human Metapneumovirus PCR Not Detected (NotDetected); Influenza A PCR Not Detected (NotDetected); Influenza B PCR Not Detected (NotDetected); Mycoplasma pneumoniae PCR Not Detected (NotDetected); Parainfluenza Virus 1 PCR Not Detected (NotDetected); Parainfluenza Virus 2 PCR Not Detected (NotDetected); Parainfluenza Virus 3 PCR Not Detected (NotDetected); Parainfluenza Virus 4 PCR Not Detected (NotDetected); Respiratory Syncytial VirusPCR Not Detected (NotDetected); Rhinovirus/Enterovirus PCR Not Detected (NotDetected)
[2023-07-25] MEDS: LEVOTHYROXINE SODIUM 25 MCG TABLET PO SCH (05:25)
[2023-07-25 06:26] LABS: Hematocrit (blood only) 38.2 % (37.0-47.0); Hemoglobin 12.7 g/dl (12.0-16.0); Mean Corpuscular Hemoglobin 29.2 pg (25.0-34.0); Mean Corpuscular Hgb Conc 33.2 g/dL (32.0-36.0); Mean Corpuscular Volume 87.8 fL (80.0-100.0); Mean Platelet Volume 9.5 fL (9.4-12.4); Platelet Count 212 K/uL (130-400); RDW Coefficient of Variation 13.4 % (11.5-14.5); RDW Standard Deviation 43.5 fL (36.4-46.3); Red Blood Count 4.35 M/uL (4.20-5.40); White Blood Count 5.77 K/ul (4.8-10.8)
[2023-07-25 06:53] LABS: Albumin Globulin Ratio 1.2 (0.9-2); Albumin Level 3.8 gm/dl (3.4-5.0); BUN Creatinine Ratio 41.3 (10-20); Bilirubin,Total 0.4 mg/dl (0.2-1.0); Calcium 8.8 mg/dl (8.6-10.3); Creatinine Clr Calc Pharmacy 44.4 ml/min; Est GFR (African American) 84.8 ml/min; Est GFR (Non-African American) 73.2 ml/min; Globulin 3.2 gm/dl (2.5-4.0); Phosphorus 3.6 mg/dl (2.5-4.9); Potassium 3.8 mmol/L (3.5-5.1)
--- NOTE | 2023-07-25 09:09 | Electrocardiogram Report ---
Test Reason : Blood Pressure : / mmHG Vent. Rate : 058 BPM Atrial Rate : 058 BPM P-R Int : 162 ms QRS Dur : 080 ms QT Int : 466 ms P-R-T Axes : 065 -20 065 degrees QTc Int : 457 ms Sinus bradycardia Otherwise normal ECG When compared with ECG of 19-NOV-2017 11:05, No significant change was found Confirmed by Josh Ramos ([id number]) on 07/25/2023 9:09:27 AM Referred By: REFERRED SELF Confirmed By:Josh Ramos
[2023-07-25] MEDS: predniSONE 1 MG TAB PO SCH (09:46)
[2023-07-25] MEDS: LOSARTAN POTASSIUM 25 MG TAB PO SCH (09:46)
[2023-07-25] MEDS: ACETAMINOPHEN 325 MG TAB PO PRN ×2 (12:59→19:59)
--- NOTE | 2023-07-25 15:53 | Hospitalist Progress Note ---
Date of Service July 25, 2023 Assessment & Plan (1) Vomiting: Plan Dizziness Nausea, vomiting Patient presenting with dizziness associated with nausea and vomiting since last 2 days [employer] Patient reports such attack every 4 to 6 months which is self-limited in 1 to 2 days of rest and not eating. This time her symptoms did not improve and hence presented to the ED. CXR with no acute findings. CT head with no acute intracranial abnormality. Mild fusiform dilation of the cavernous segment left ICA measuring 6 mm noted. can be followed up w/ pcp office for skilled nursing monitoring. Admitting labs fairly WNL including electrolytes. Procalcitonin negative. Lipase negative. Urinalysis negative. BioFire negative repeat labs today fairly wnl Will get orthostatic vitals. Not done, reordered. Fall precaution, PT/OT. Nausea control. Pt reports improvement in her symptoms. Hypertension: Hold hydrochlorothiazide. Will continue with losartan for now. Hypothyroidism: Continue home levothyroxine Polymyalgia rheumatica: Continue home prednisone DVT prophylaxis: Heparin subcu Full code Dispo: await pt/ot eval. Admission and Anticipated Discharge Date Admission Date: July 24, 2023 Subjective Patient was seen and examined at bedside. Patient was lying in bed, on room air, resting comfortably, not in any acute distress. Patient reports improving nausea, vomiting, has been able to eat her diet. Patient reports improving dizziness Orthostatic vitals ordered yesterday, not taken. Will order again today, will follow. PT/OT could not evaluate her today, await their evaluation. Physical Exam Physical Exam: GENERAL: Alert and oriented x3. NAD, on RA. Appears weak/ill. HEENT: No pallor, no icterus. Pupils equal, round and reactive to light. Oral mucosa moist. NECK: No JVD, no neck masses. HEART: S1 and S2 heard. Regular rate and rhythm. No murmur, no gallop. RESPIRATORY SYSTEM: Normal AP diameter. No accessory muscle use. No wheezing, no crackles. ABDOMEN: Soft, bowel sounds present, nontender, no distention. CENTRAL NERVOUS SYSTEM: No facial droop. Speech is clear. Obeys simple commands. Moves extremities. EXTREMITIES: No edema, no erythema seen. Results & Data Results & Data Vital Signs (Past 12 Hours) Vital Signs Temp Pulse Pulse Resp BP Pulse Ox O2 Del Method 07/25/23 15:00 36.8 C 68 14 113/69 90 Room Air 07/25/23 11:27 36.7 C 63 14 116/70 90 Room Air 07/25/23 08:00 66 07/25/23 07:47 36.6 C 54 L 16 101/63 93 Room Air 07/25/23 03:54 36.7 C 84 18 106/61 98 Room Air (1) Vomiting Nausea presence: unspecified Vomiting type: unspecified Qualified Code(s): R11.10 - Vomiting, unspecified
[2023-07-26] MEDS: LEVOTHYROXINE SODIUM 25 MCG TABLET PO SCH (05:24)
[2023-07-26] MEDS: predniSONE 1 MG TAB PO SCH (09:00)
[2023-07-26] MEDS: LOSARTAN POTASSIUM 25 MG TAB PO SCH (09:00)
[2023-07-26] MEDS ORDERED: hydroCHLOROthiazide 25 MG TAB PO SCH (09:00)
[2023-07-26 09:06] LABS: BUN Creatinine Ratio 35.6 (10-20); Calcium 8.8 mg/dl (8.6-10.3); Creatinine Clr Calc Pharmacy 46.1 ml/min; Est GFR (African American) 87.7 ml/min; Est GFR (Non-African American) 75.6 ml/min; Magnesium 2.1 mg/dl (1.7-2.4); Phosphorus 3.3 mg/dl (2.5-4.9); Potassium 3.9 mmol/L (3.5-5.1)
--- NOTE | 2023-07-26 10:50 | Discharge Summary ---
Date of Service July 26, 2023 Admission HPI Per Admitting Provider 83-year-old lady with PMH of essential hypertension, reflux esophagitis, polymyalgia rheumatica, trigger finger of left thumb, herpes zoster without complication, history of recurrent self limited dizziness presented to the ED with complaint of dizziness associated with nausea and vomiting since last 2 days. Patient reports it is similar to her dizziness attacks in the past which generally happens every 4 to 6 months and are self-limited in 1 to 2 days with rest and not eating. But this time after 2 days this is not resolving and hence he presented to the ED. Patient reports no blood in the vomitus but not being able to eat due to vomiting and nausea. Patient reports being dizzy while sitting up or getting up to walk. Was not dizzy on the bed while changing position during bedside exam. Patient denies any flulike illness but reports scratchy throat from vomiting. Patient denies any febrile illness or chest pain or headache or acute changes in her bowel or bladder habits. Patient reports quitting smoking in 1990, rarely drinks alcohol. Full code. Medications reviewed with the patient at bedside. Admission Exam Per Admitting Provider GENERAL: Alert and oriented x3. NAD, on 2L O2 via NC. Appears weak/ill. HEENT: No pallor, no icterus. Pupils equal, round and reactive to light. Oral mucosa dry. NECK: No JVD, no neck masses. HEART: S1 and S2 heard. Regular rate and rhythm. No murmur, no gallop. RESPIRATORY SYSTEM: Normal AP diameter. No accessory muscle use. No wheezing, no crackles. ABDOMEN: Soft, bowel sounds present, nontender, no distention. CENTRAL NERVOUS SYSTEM: No facial droop. Speech is clear. Obeys simple commands. Moves extremities. EXTREMITIES: No edema, no erythema seen. Principal Diagnosis Recurrent dizziness, nausea, vomiting incidental finding of intracranial aneurysm Discharge Exam GENERAL: Alert and oriented x3. NAD, on RA. Appears weak/ill. HEENT: No pallor, no icterus. Pupils equal, round and reactive to light. Oral mucosa moist. NECK: No JVD, no neck masses. HEART: S1 and S2 heard. Regular rate and rhythm. No murmur, no gallop. RESPIRATORY SYSTEM: Normal AP diameter. No accessory muscle use. No wheezing, no crackles. ABDOMEN: Soft, bowel sounds present, nontender, no distention. CENTRAL NERVOUS SYSTEM: No facial droop. Speech is clear. Obeys simple commands. Moves extremities. EXTREMITIES: No edema, no erythema seen. Discharge Data Allergies Allergy/AdvReac Type Severity Reaction Status Date / Time codeine AdvReac Unknown "Sick" Verified 07/24/23 15:34 METAL Allergy Unknown SEE NOTES Uncoded 07/24/23 15:34 BELOW Consultations 07/24/23 15:56 ED Decision to Admit Stat Ordered Studies 07/24/23 13:03 CT angio head wo/w Stat Hospital Course (1) Vomiting: Plan 83-year-old lady was managed for the following: Dizziness Nausea, vomiting Patient presenting with dizziness associated with nausea and vomiting since last 2 days [employer]ENCE [employer] Patient reports such attack every 4 to 6 months which is self-limited in 1 to 2 days of rest and not eating. This time her symptoms did not improve and hence presented to the ED. CXR with no acute findings. CT head with no acute intracranial abnormality. Mild fusiform dilation of the cavernous segment left ICA measuring 6 mm noted. can be followed up w/ pcp office for prison monitoring. Admitting labs fairly WNL including electrolytes. Procalcitonin negative. Lipase negative. Urinalysis negative. BioFire negative repeat labs fairly wnl Orthostatic vitals negative. PT/OT evaluated, appreciate recs. Status post IV fluids. Patient reports improvement in her nausea, vomiting, dizziness. Patient able to put down the foot. Hemodynamically stable. Hypertension: Continue with home medications.. Hypothyroidism: Continue home levothyroxine Polymyalgia rheumatica: Continue home prednisone DVT prophylaxis: Heparin subcu Full code Dispo: PT/OT eval, recommendations home. Patient is being discharged to home with following instruction at the point of discharge: Follow-up with your primary care physician within a week time and likely you will need labs CBC/CMP/magnesium/phosphorus. As discussed at the bedside, you have been incidentally detected to have intracranial aneurysm 6mm in size [Mild fusiform dilation of the cavernous segment left ICA measuring 6 mm.]. It is generally recommended unruptured intracranial aneurysms be monitored with CTA or MRA annually for two to three years, and every two to five years thereafter if the aneurysm is clinically and radiographically stable. However, it is not unreasonable to obtain the first reimaging study of newly detected small aneurysms at six months, since there is evidence that newly formed small aneurysms may be at higher risk of rupture than older, more stable aneurysms. Avoid excessive straining and Valsalva maneuvers. You will likely benefit by establishing w/ neurosurgery as outpatient. Coordinate with your PCP office to set up the test and set up for referral. For your recurrent attacks of dizziness, you will benefit by ENT evaluation. Coordinate with your PCP office to set up the referral. Please make sure that you are able to get your medications today by calling your pharmacy before you leave the hospital so that your treatment continuity is not broken. Home Health Attestation I certify that this patient is under my care and that I, or a physicians assistant softball coach working with me, had a face to-face encounter that meets the home health [id number] encounter requirements with this patient. The encounter with the patient was in whole, or in part, for the following medical condition, which is the primary reason for home health care (list medi mani condition): I certify that, based on my findings, the following services are medically necessary home health services: My clinical findings support the need for the above services because: Further, I certify that my clinical findings support that this patient is homebound (i.e. absences from home require considerable and taxing effort and are for medical reasons or [employer] services or infrequently or of short duration when for other reasons) because: Certification for Home Health Services: Based on the above findings, I certify that this patient is confined to the home and needs intermittent custodial care, physical therapy and/or speech ther apy or continues to need occupational therapy. The patient is under my care, and I have initiated the establishment of the plan of care. This patient will be followed by a physician who will periodically review the plan of care. Total Time Total Time Spent Total Time Spent (In Minutes): 35 Discharge Plan Discharge Items Patient Disposition: Home - Self-Care Reason For Visit: DIZZINESS Discharge Diagnosis: Recurrent dizziness, nausea, vomiting incidental finding of intracranial aneurysm Activity: As commented below Activity Comment: Avoid strenous activity, valsalva maneuvers. Non-emergency contact: Primary Care Provider Call non-emergency contact if: you have any medication questions, your symptoms worsen and your temperature is above 101.5 Follow-up/Referrals: Sin Grady MD [Primary Care Provider] - Diet: Heart Healthy Addtl Attending Provider Instructions: Follow-up with your primary care physician within a week time and likely you will need labs CBC/CMP/magnesium/phosphorus. As discussed at the bedside, you have been incidentally detected to have intracranial aneurysm 6mm in size [Mild fusiform dilation of the cavernous segment left ICA measuring 6 mm.]. It is generally recommended unruptured int racranial aneurysms be monitored with CTA or MRA annually for two to three years, and every two to five years thereafter if the aneurysm is clinically and radiographically stable. However, it is not unreasonable to obtain the first reimaging study of newly detected small aneurysms at six months, since there is evidence that newly formed small aneurysms may be at higher risk of rupture than older, more stable aneurysms. Avoid excessive straining and Valsalva maneuvers. You will likely benefit by establishing w/ neurosurgery as outpatient. Coordinate with your PCP office to set up the test and set up for referral. For your recurrent attacks of dizziness, you will benefit by ENT evaluation. Coordinate with your PCP office to set up the referral. Please make sure that you are able to get your medications today by calling your pharmacy before you leave the hospital so that your treatment continuity is not broken. Pending Studies at Discharge: No Stand-Alone Forms: My [facility] [employer], Smoking Cessation Medications and DC Order Prescriptions: New meclizine 12.5 mg Tablet 12.5 mg PO Q8H PRN (Reason: dizziness) Qty: 30 0RF ondansetron 4 mg tablet,disintegrating 4 mg PO BID PRN (Reason: nausea and vomiting) Qty: 20 0RF Continued prednisone 1 mg Tablet 1 mg PO QAM losartan 25 mg Tablet 25 mg PO QAM hydrochlorothiazide 25 mg tablet 25 mg PO QAM levothyroxine 25 mcg tablet 25 mcg PO QAM acetaminophen [Tylenol Ex Str Rapid Release] 500 mg Tablet 500 mg PO Q6H PRN (Reason: pain/fever) Discharge Orders: Discharge Order (Routine); Ordered 07/26/23 Ordered By: Ileana Malave Admission Data Admit Date/Time: 07/24/23 16:04 Attending Provider: Ileana Malave Admit Provider: Ileana Malave Primary Care Provider: Sin Grady Other Providers: Ileana Malave
== END 2023-07-26 11:25 | disposition home or self-care (01) | DRG 149 ==
LOC: ED 10:22 → EDINP 16:04 → 2N 17:39